=== PATIENT | female | born 1945 | race Caucasian/White ===

== ENCOUNTER 2019-06-02 07:17 | Inpatient (IN) | payer MEDICARE ==
[~2019-06-02] VITALS: Ht 167.6 cm; Wt 103.7 kg
[2019-06-02 08:19] LABS: Basophils # (auto) 0.1 uL; Basophils % (auto) 2.3 % (0.0-2.0); Eosinophils # (auto) 0.1 uL; Eosinophils % (auto) 1.5 % (0.0-7.0); Hematocrit 40.5 % (36.0-46.0); Hemoglobin 13.9 g/dL (12.2-16.2); Lymphocytes # (auto) 0.8 uL; Mean Corpuscular Hemoglobin 31.3 pg (28.0-32.0); Mean Corpuscular Hgb Conc. 34.4 g/dL (32.0-36.0); Mean Corpuscular Volume 90.9 fL (80.0-100.0); Monocytes # (auto) 0.4 uL; Monocytes % (auto) 7.4 % (0.0-12.0); Neutrophils # (auto) 3.6 uL; Neutrophils % (auto) 71.8 % (37.0-80.0); Platelet Count (auto) 155 10^3/uL (140-450); Red Blood Cells 4.45 10^6/uL (4.0-5.20); Red Cell Distribution Width 13.4 % (11.8-14.3)
[2019-06-02] MEDS ORDERED: IOHEXOL 350 MG/ML 100ML IJ ONE (08:23)
[2019-06-02] MEDS ORDERED: SODIUM CHLORIDE 0.9% 1,000 ML IV ONE (08:30)
[2019-06-02 08:32] LABS: Albumin 3.8 g/dL (3.4-5.0); BUN/Creatinine Ratio 16.5; Calcium 8.4 mg/dL (8.5-10.1)
[2019-06-02 08:35] LABS: Bilirubin, Total 0.6 mg/dL (0.2-1.0); Total Protein 6.9 g/dL (6.4-8.2)
[2019-06-02] MEDS ORDERED: methylPREDNISolone SOD SUCC 125 MG/2 ML VL ONE (09:37)
[2019-06-02] MEDS ORDERED: methylPREDNISolone SOD SUCC 125 MG/2 ML VL IV ONE (09:45)
[2019-06-02] MEDS: ENALAPRIL MALEATE 2.5 MG TAB PO SCH (10:00)
[2019-06-02] MEDS ORDERED: MORPHINE SULFATE 4 MG/ML SYR/VIAL IV PRN (10:00)
[2019-06-02] MEDS ORDERED: LACTULOSE 20Gm/30ML SOLN PO PRN (10:00)
[2019-06-02] MEDS ORDERED: HYDROcodone-ACET 5/325MG TAB PO PRN (10:00)
[2019-06-02] MEDS ORDERED: POTASSIUM CHL 20 Meq TABLET PO SCH (10:00)
[2019-06-02] MEDS: LEVOFLOXACIN 500MG 100 ML IV SCH (10:00)
[2019-06-02] MEDS: methylPREDNISolone SOD SUCC 40 MG/ML VL IV SCH ×2 (10:00→21:32)
[2019-06-02] MEDS ORDERED: PROMETHAZINE HCL 25 MG/ML 1ML IV PRN (10:00)
[2019-06-02] MEDS ORDERED: LEVOFLOXACIN 500MG 100 ML IV ONE (10:00)
[2019-06-02] MEDS: FUROSEMIDE 40 MG/4 ML VIAL IV SCH (10:00)
[2019-06-02] MEDS ORDERED: ALBUTEROL SULF 2.5 MG/0.5ML(0.5%) NEB SOLN NEB PRN (10:00)
[2019-06-02] MEDS ORDERED: MORPHINE SULF INJ 2 MG/ML SYRINGE 1ML IV PRN (10:00)
[2019-06-02] MEDS ORDERED: NITROGLYCERIN 0.4 MG SL TAB SL PRN (10:00)
[2019-06-02] MEDS ORDERED: FUROSEMIDE 40 MG/4 ML VIAL IV ONE (10:15)
[2019-06-02] MEDS ORDERED: LACTULOSE 20Gm/30ML SOLN PO ONE (10:15)
[2019-06-02] MEDS ORDERED: CARVEDILOL 3.125 MG TAB PO ONE (10:15)
[2019-06-02] MEDS ORDERED: PANTOPRAZOLE 40 MG TAB PO ONE (10:15)
[2019-06-02] MEDS ORDERED: ENALAPRIL MALEATE 2.5 MG TAB PO ONE (10:15)
[2019-06-02] MEDS: CARVEDILOL 3.125 MG TAB PO SCH ×2 (10:53→22:00)
[2019-06-02] MEDS: PANTOPRAZOLE 40 MG TAB PO SCH (10:53)
[2019-06-02 11:43] LABS: Urine Bacteria NONE SEEN /hpf (None Seen); Urine Blood Negative /uL (Negative); Urine Mucus FEW (None Seen); Urine Specific Gravity 1.049 (1.001-1.035); Urine WBC <1 /hpf (0 - 5)
[2019-06-02] MEDS: ALBUTEROL SULF 2.5 MG/0.5ML(0.5%) NEB SOLN NEB SCH ×2 (13:04→18:07)
[2019-06-02] MEDS: IPRATROPIUM BROM 0.5 MG/2.5ML INH SOL NEB SCH ×2 (13:04→18:07)
[2019-06-02] MEDS: SODIUM CHLOR 0.9% PF (SALINE LOCK) 10ML VIAL/SYR IV SCH ×2 (14:00→21:32)
[2019-06-02] MEDS: CLINDAMYCIN 600MG IV 50 ML IV SCH ×2 (14:00→21:32)
[2019-06-02] MEDS ORDERED: TEMAZEPAM 15 MG CAP PO ONE (21:30)
[2019-06-02] MEDS: ATORVASTATIN 20 MG TAB PO SCH (21:32)
[2019-06-02] MEDS ORDERED: ALBUMIN 5% 250 ML IV ONE (23:00)
[2019-06-03] VITALS (32 sets, daily range): BP systolic 25–144; BP diastolic 11–74
[2019-06-03] MEDS: ALBUTEROL SULF 2.5 MG/0.5ML(0.5%) NEB SOLN NEB SCH ×4 (00:23→18:32)
[2019-06-03] MEDS: IPRATROPIUM BROM 0.5 MG/2.5ML INH SOL NEB SCH ×4 (00:23→18:32)
--- NOTE | 2019-06-03 00:30 | NUR ---
Telemetry admit from ER KEVANMALVIN admitted to Telemetry unit. Patient oriented to DWAIN DALTON RN primary RN, unit telemetry, room 292, bed B,and unit policies regarding patient care and visiting hours. Patient now on continuous telemetry monitoring, tele box #69 and telemetry reading on arrival to unit is normal sinus rhythm with heart in the 80s. Patient placed on bedside oxygen, weighed by bedscale and encouraged to call if they need something. All questions and concerns addressed, patient verbalized understanding.
--- NOTE | 2019-06-03 00:30 | NUR ---
Patient arrived to [facility] 292-B, sitting on edge of bed, 02 at [address], awake, alert and oriented x 4, pleasant affect, no c/o pain at this time, skin is intact, no open areas, bilateral lower extremities are red and edematous. Bed in low position, side rails up x 2, call light and bed side table within reach, oriented patient to room and equipment, encouraged patient to call nursing staff for help before ambulating to the bathroom for safety reasons. Will continue to monitor with hourly rounding for the remainder of shift.
--- NOTE | 2019-06-03 04:30 | NUR ---
Rounds Patient sleeping. No S/S of distress/SOB or pain. Will continue to monitor changes q1hr and PRN.
[2019-06-03] MEDS: CLINDAMYCIN 600MG IV 50 ML IV SCH ×3 (06:12→22:14)
[2019-06-03] MEDS: SODIUM CHLOR 0.9% PF (SALINE LOCK) 10ML VIAL/SYR IV SCH ×3 (06:14→22:14)
--- NOTE | 2019-06-03 07:30 | NUR ---
SHIFT CLOSING NOTE. ENDORSED CARE OF PATIENT TO DAY SHIFT, WILLARD KASPER.
[2019-06-03] MEDS ORDERED: IOHEXOL 350 MG/ML 100ML IJ ONE ×2 (07:54→10:54)
[2019-06-03] MEDS ORDERED: LIDOCAINE 2%HCL (LOCAL ANESTH.) INJ 20ML MDV ONE (07:54)
--- NOTE | 2019-06-03 07:55 | NUR ---
Opening Shift Note Assumed care of patient, awake and alert. No S/S of distress/SOB or pain. Instructed on POC and to call for assist PRN, will continue to monitor for changes Q1hr and PRN. Bed locked in lowest position with two side rails up and call light in reach. Per Dr Rodriguez note patient to have LHC with Dr Purdy today. Breakfast tray held.
--- NOTE | 2019-06-03 09:50 | NUR ---
DR LOPEZ [place] PATIENT TO BE TAKEN DOWN TO INTERACTIVE WEB DEVELOPER.
[2019-06-03] MEDS: PANTOPRAZOLE 40 MG TAB PO SCH (10:00)
[2019-06-03] MEDS: POTASSIUM CHL 20 Meq TABLET PO SCH (10:00)
[2019-06-03] MEDS: ENOXAPARIN SOD 40 MG/0.4 ML SYRINGE SC SCH (10:00)
[2019-06-03] MEDS: methylPREDNISolone SOD SUCC 40 MG/ML VL IV SCH ×2 (10:00→22:14)
[2019-06-03] MEDS: FUROSEMIDE 40 MG/4 ML VIAL IV SCH (10:00)
[2019-06-03] MEDS: CARVEDILOL 3.125 MG TAB PO SCH (10:00)
[2019-06-03] MEDS: ENALAPRIL MALEATE 2.5 MG TAB PO SCH (10:00)
[2019-06-03] MEDS ORDERED: ACETAMINOPHEN 325 MG TAB PO ONE (10:30)
--- NOTE | 2019-06-03 10:30 | NUR ---
PATIENT TAKEN DOWN TO RASCHEL KNITTING MACHINE OPERATOR, NO S/S OF DISTRESS NOTED.
[2019-06-03] MEDS ORDERED: fentaNYL CITRATE 100 MCG/2 ML VL ONE (10:53)
[2019-06-03] MEDS ORDERED: MIDAZOLAM HCL 1MG/1ML-2 ML VIAL ONE (10:53)
[2019-06-03] MEDS ORDERED: SODIUM CHL 0.9% 0 ML ONE (10:53)
[2019-06-03] MEDS ORDERED: ANGIOMAX 250 MG VIAL IV ONE (10:53)
[2019-06-03] MEDS ORDERED: HEPARIN SODIUM (PORCINE) 5000 UNITS/ML 1ML VIAL ONE ×2 (11:23→11:57)
--- NOTE | 2019-06-03 11:32 | NUR ---
Respiratory note: SCHEDULED MED NEB TX NOT GIVEN PT AT A PROCEDURE.
[2019-06-03] MEDS ORDERED: FUROSEMIDE 20 MG/2 ML VIAL ONE (11:42)
[2019-06-03] MEDS ORDERED: MORPHINE SULF INJ 2 MG/ML SYRINGE 1ML ONE ×4 (11:51→12:17)
[2019-06-03] MEDS ORDERED: hydrALAZINE HCL 20 MG/ML VL ONE ×2 (11:57→12:19)
[2019-06-03] MEDS ORDERED: HEPARIN DRIP/D5W 100UNITS/ML 250 ML IV SCH (12:47)
--- NOTE | 2019-06-03 12:54 | NUR ---
PATIENT HAS ADVANCED DIRECTIVES IN CHART DR YEE ROUNDED SAW ADVANCED DIRECTIVES AND SAID PATIENT TO REMAIN FULL CODE.
--- NOTE | 2019-06-03 12:55 | NUR ---
ORDER PLACED FOR FULL CODE PER DR YEE.
[2019-06-03] MEDS ORDERED: hydrALAZINE HCL 20 MG/ML VL IV PRN (13:00)
--- NOTE | 2019-06-03 15:16 | NUR ---
REPORT RECEIVED FROM BONE GRINDER, GETTING ROOM READY
--- NOTE | 2019-06-03 16:00 | NUR ---
ARRIVED TO ICU FROM FARM ASSISTANT ON IABP/PA LINE TO RIGHT GROIN. IABP 1:1 FREQUENCY WITH CDI DSG NO HEMATOMA AND PULSES OBTAINED TO RIGHT DORSALIS PEDIS/POSTERIOR TIBIALIS WITH DOPPLER. BOTH LEGS/FEET COOL TO TOUCH AND PALE. LEFT RADIAL PULSE PALPABLE. HEPARIN GTT AT 1000 UNITS/HR TO RIGHT 20G HAND WITH PTT TO BE DRAWN AT 2000. WEN TO GRAVITY DRAINING CLEAR YELLOW URINE. PA LINE/CVP/ECG/SPO2 HOOKED TO PRESSURE BAGS AND CONNECTED TO BEDSIDE MONITOR. PATIENT ARRIVED A/OX4 WITH PUPILS 2MM BRISK. SPO2 99% ON NONREBREATHER MASK. CHRISTIAN SEGURA AT BEDSIDE AND PLACED PATIENT ON BIPAP PREVIOUSLY ON IN FARM ASSISTANT ORDERED PER DR LOPEZ. SPOKE WITH DR LOPEZ AND OBTAINED ORDER FOR PULMONARY CONSULT. DR PEARCE IN UNIT AND AWARE OF CONSULT. NEW PIV 22 G TO RIGHT FA PLACED AFTER SECOND ATTEMPT.
[2019-06-03] MEDS: LORazepam 2MG/ML-1ML VIAL IV PRN (16:24)
--- NOTE | 2019-06-03 16:45 | NUR ---
AT 1624 ATIVAN GIVEN 0.5MG IV (LOWER THAN ORDERED DOSE DUE TO FIRST TIME PATIENT GETTING ATIVAN PER PATIENT REPORT) DUE TO C/O ANXIETY AND "UNEASINESS". PATIENT STATED IT HELPED HER "BREATH BETTER". AUGMENTED PRESSURES DROPPED AFTER GIVING ATIVAN, CONT TO MONITOR.
--- NOTE | 2019-06-03 16:58 | NUR ---
CARDIOTHORACIC SURGERY CONSULT PLACED WITH DR STRICKLAND COST ENGINEER
--- NOTE | 2019-06-03 17:30 | NUR ---
DR PEARCE AT BEDSIDE, EXAMINED AND SPOKE WITH PATIENT AND WHO IS AT BEDSIDE. DR GAVE NEW ORDER FOR ABG IN 2 HRS AND ABG/CXR IN AM.
[2019-06-03] MEDS: LEVOFLOXACIN 500MG 100 ML IV SCH (17:40)
--- NOTE | 2019-06-03 19:03 | NUR ---
PAGED DR LOPEZ REGARDING PA LINE PER CXR RESULTS
--- NOTE | 2019-06-03 19:25 | NUR ---
REPORT GIVEN TO LORY LAMAR. DR LOPEZ AWARE OF CXR RESULTS REGARDING PA LINE PLACEMENT AND OK TO GO BY PAD FOR LASIX IV ORDER INSTEAD OF WEDGE PRESSURES.
[2019-06-03 20:04] LABS: Basophils # (auto) 0 uL; Basophils % (auto) 0.2 % (0.0-2.0); Eosinophils # (auto) 0 uL; Hematocrit 40.9 % (36.0-46.0); Hemoglobin 14.1 g/dL (12.2-16.2); Lymphocytes # (auto) 0.7 uL; Mean Corpuscular Hemoglobin 31.9 pg (28.0-32.0); Mean Corpuscular Hgb Conc. 34.4 g/dL (32.0-36.0); Mean Corpuscular Volume 92.8 fL (80.0-100.0); Monocytes # (auto) 0.9 uL; Monocytes % (auto) 8.5 % (0.0-12.0); Neutrophils # (auto) 8.7 uL; Neutrophils % (auto) 84.3 % (37.0-80.0); Nucleated Red Blood Cells % 0.1 %; Platelet Count (auto) 157 10^3/uL (140-450); Red Blood Cells 4.41 10^6/uL (4.0-5.20); Red Cell Distribution Width 13.6 % (11.8-14.3); White Blood Cell 10.3 10^3/uL (4.4-10.8)
[2019-06-03 20:15] LABS: Alanine Aminotransferase 21 U/L (13-56); Albumin 3.8 g/dL (3.4-5.0); Anion Gap 12 (5-15); Aspartate Aminotransferase 49 U/L (15-37); BUN/Creatinine Ratio 27.8; Blood Urea Nitrogen 30 mg/dL (7-18); Calcium 8.2 mg/dL (8.5-10.1); Carbon Dioxide 21 mmol/L (21-32); Chloride 100 mmol/L (98-107); GFR African American 64 mL/min; GFR Non-African American 53 mL/min; Potassium 4.4 mmol/L (3.5-5.1); Sodium 133 mmol/L (136-145)
[2019-06-03 20:16] LABS: Partial Thromboplastin Time 35.8 sec (23.64-32.05)
[2019-06-03 20:18] LABS: Alkaline Phosphatase 71 U/L (45-117); Bilirubin, Total 0.6 mg/dL (0.2-1.0); Total Protein 7.1 g/dL (6.4-8.2)
[2019-06-03 20:20] LABS: Glucose 407 mg/dL (74-106)
[2019-06-03] MEDS: ATORVASTATIN 20 MG TAB PO SCH (22:14)
[2019-06-03] MEDS: HEPARIN DRIP/D5W 100UNITS/ML 250 ML IV SCH (22:20)
[2019-06-03] MEDS ORDERED: DEXTROSE (50%) 50ML SYRG IV PRN (22:30)
[2019-06-04] VITALS (74 sets, daily range): BP systolic 23–109; BP diastolic 7–68
[2019-06-04] MEDS: ALBUTEROL SULF 2.5 MG/0.5ML(0.5%) NEB SOLN NEB SCH ×4 (00:05→19:35)
[2019-06-04] MEDS: IPRATROPIUM BROM 0.5 MG/2.5ML INH SOL NEB SCH ×4 (00:05→19:35)
[2019-06-04] MEDS: ACCU-CHEK COMFORT CURVE STRIP VI SCH ×5 (00:12→23:07)
[2019-06-04] MEDS: InsuLIN REG 1unit/0.01ml Soln (100units/ml) SC SCH ×5 (00:12→23:07)
[2019-06-04] MEDS: FUROSEMIDE 40 MG/4 ML VIAL IV PRN ×3 (00:13→23:21)
[2019-06-04 04:05] LABS: INR 1.01 (0.9-1.15); Partial Thromboplastin Time 44.7 sec (23.64-32.05)
[2019-06-04] MEDS: CLINDAMYCIN 600MG IV 50 ML IV SCH ×3 (05:59→22:06)
[2019-06-04] MEDS: SODIUM CHLOR 0.9% PF (SALINE LOCK) 10ML VIAL/SYR IV SCH ×3 (06:00→22:05)
[2019-06-04] MEDS: ACETAMINOPHEN 500 MG TAB PO PRN (07:17)
--- NOTE | 2019-06-04 07:50 | NUR ---
ASSESSMENT COMPLETED, SEE INTERVENTIONS. C/O HEADACHE PAIN 3/10 TYLENOL GIVEN ORDERED. IABP 1:1 AUGMENTING 90-120, RIGHT GROIN INSERTION SITE MINIMAL AMOUNT OF BLOODY DRAINAGE ASSESSED, PULSES BILATERAL DORSALIS PEDIS/POSTERIOR TIBIALIS REGULAR WITH DOPPLER, BILATERAL RADIAL PULSES WEAK BUT PALPABLE. A/O X4 WITH BRISK PUPILS 2MM. RIGHT LEG WARM TO TOUCH WITH ERYTHEMA WITH PATIENT DENYING PAIN IN THAT LEG. WEN PRESENT WITH URINE OUTPUT WNL CLEAR YELLOW DRAINING TO GRAVITY. BIPAP ON 20/03 40% TOLERATING WELL SPO2 98-99%. PA LINE TO RIGHT GROIN AROUND 95 CM AT HUB CXR VIEWED AND REPORT READ RECOMMEND RETRACTION 6-7 CM, DR LOPEZ ALREADY AWARE ON 06/03 EVENING (SEE NOTE) AND STATED DO NOT RETRACT, WILL VERIFY THIS AM. SEE VS/HEMODYNAMICS FOR PAP/CVP. SR 80'S-90'S NO ECTOPY. DENIES ANY CHEST PAIN.
--- NOTE | 2019-06-04 08:02 | NUR ---
DR PEARCE AT BEDSIDE, DR WEST RT OBTAINING ABG AT THIS TIME SPOKE WITH AND EXAMINED PATIENT
--- NOTE | 2019-06-04 08:16 | NUR ---
AND DAUGHTER AT BEDSIDE
--- NOTE | 2019-06-04 08:30 | NUR ---
DR PEARCE AWARE OF ABG RESULTS, OK TO TAKE OFF BIPAP AND PLACE ON O2 VIA NC TO KEEP SPO2 92 OR ABOVE AND LONG PATIENT ABLE TO TOLERATE WITHOUT INCREASED ANXIETY/SOB. OK TO USE BIPAP PRN. RT BERE PLACED ON OXYMIZER. BREAKFAST TRAY AT BEDSIDE AND RN MAINTAIN STRICT ASPIRATION PRECAUTIONS SINCE UNABLE TO SIT UP DUE TO IABP. HOB 30 DEGREES AND SWALLOWS WITHOUT ISSUE.
[2019-06-04] MEDS: methylPREDNISolone SOD SUCC 40 MG/ML VL IV SCH (09:47)
[2019-06-04] MEDS: ENOXAPARIN SOD 40 MG/0.4 ML SYRINGE SC SCH (09:47)
[2019-06-04] MEDS: LORazepam 2MG/ML-1ML VIAL IV PRN ×3 (09:47→20:51)
[2019-06-04] MEDS: LEVOFLOXACIN 500MG 100 ML IV SCH (09:47)
[2019-06-04] MEDS ORDERED: PANTOPRAZOLE 40 MG/10 ML VIAL INJ IV SCH (10:00)
[2019-06-04] MEDS: FUROSEMIDE 40 MG/4 ML VIAL IV SCH (10:00)
--- NOTE | 2019-06-04 10:15 | NUR ---
DR LOPEZ IN AT BEDSIDE, AWARE OF CXR RESULTS WITH RECOMMENDATION TO RETRACT PA LINE AND DR STATED NO NEED TO RETRACT. DR AWARE RN HELD 1000 AM ORDERED DOSE LASIX DUE TO PAD LESS THAN 25. OK TO CONT TO GO BY PAD FOR LASIX PRN ORDER INSTEAD OF WEDGE PRESSURE. DR EXAMINED PATIENT. DR AWARE OF HEMODYNAMICS. DR AWARE OF IABP DRESSING WITH MINIMAL AMOUNT BLOODY DRAINAGE AND OK TO CHANGE DRESSING TODAY.
--- NOTE | 2019-06-04 10:30 | NUR ---
DR STRICKLAND AT BEDSIDE THIS AM, DR EXAMINED PATIENT AND SPOKE WITH HER REGARDING CABG/AORTIC VALVE REPLACEMENT PROCEDURES AND ALL RISKS INVOLVED. FAMILY INCLUDING DAUGHTER AND AT BEDSIDE. PATIENT AGREED TO SURGERY AND SIGNED CONSENTS. SURGERY WILL BE WEDNESDAY 06/06. RN PLACED PREOP ORDERS FOR OPEN HEART SURGERY PER DR REQUEST. HEPARIN DRIP TO BE DISCONTINUED AT 0400 ON WEDNESDAY 06/06 PRIOR TO SURGERY. ULTRASOUND CALLED FOR PENDING CAROTID DUPLEX STUDY AND VEIN MAPPING, STATED THEY WILL BE HERE TODAY TO DO PROCEDURES. RT AWARE OF ABG ON ROOM AIR. WILL OBTAIN ALL BLOOD ORDERED WITH PTT SCHEDULED ALREADY AT 1100. RN EDUCATED PATIENT ON OPEN HEART SURGERY PRE-OP, INTRA-OP AND POST-OP TOPICS. WILL SHOW PRE-OP VIDEO TODAY.
[2019-06-04] MEDS: HEPARIN DRIP/D5W 100UNITS/ML 250 ML IV SCH ×2 (10:37→13:44)
[2019-06-04 11:58] LABS: Basophils # (auto) 0 uL; Basophils % (auto) 0.1 % (0.0-2.0); Eosinophils # (auto) 0 uL; Hematocrit 35.8 % (36.0-46.0); Lymphocytes # (auto) 0.5 uL; Lymphocytes % (auto) 6.7 % (10.0-50.0); Mean Corpuscular Hemoglobin 31.2 pg (28.0-32.0); Mean Corpuscular Hgb Conc. 33.5 g/dL (32.0-36.0); Mean Corpuscular Volume 93.4 fL (80.0-100.0); Monocytes # (auto) 0.4 uL; Monocytes % (auto) 5.6 % (0.0-12.0); Neutrophils # (auto) 5.9 uL; Neutrophils % (auto) 87.6 % (37.0-80.0); Platelet Count (auto) 122 10^3/uL (140-450); Red Blood Cells 3.84 10^6/uL (4.0-5.20); Red Cell Distribution Width 13.4 % (11.8-14.3); White Blood Cell 6.7 10^3/uL (4.4-10.8)
--- NOTE | 2019-06-04 12:11 | NUR ---
WATCHED PREOP OPEN HEART SURGERY VIDEO, ALL QUESTIONS ADDRESSED.
[2019-06-04 12:15] LABS: Albumin 3.2 g/dL (3.4-5.0); Calcium 7.6 mg/dL (8.5-10.1); Magnesium 2.1 mg/dL (1.6-2.6); Potassium 3.8 mmol/L (3.5-5.1)
[2019-06-04 12:19] LABS: BUN/Creatinine Ratio 35.7; Bilirubin, Total 0.5 mg/dL (0.2-1.0); Total Protein 6.3 g/dL (6.4-8.2)
[2019-06-04] MEDS: POTASSIUM CHL 20 Meq TABLET PO SCH (12:25)
[2019-06-04] MEDS: PANTOPRAZOLE 40 MG TAB PO SCH (12:25)
[2019-06-04 13:30] LABS: INR 1.05 (0.9-1.15); Partial Thromboplastin Time 59.4 sec (23.64-32.05)
--- NOTE | 2019-06-04 13:55 | NUR ---
WOUND CARE NOTE: PATIENT IS CURRENTLY INTUBATED, SEDATED. SHE HAS LOW PATTI SCORE OF 10. SKIN WOUND CARE PLAN IMPLEMENTED FOR LOW PATTI SCORE. SHE IS WOUND FREE AT THIS TIME. [facility] WITH DIAGNOSIS OF PNA, PERICARDITIS, HEART FAILURE. SHE IS SCHEDULED FOR CARDIAC SURGERY ON THURSDAY. RECOMMEND: FREQUENT TURN SCHEDULE Q 2 HOURS, PRN CONDITION PERMITS, WITH PRESSURE REDISTRIBUTION USING PILLOWS/WEDGES, BID/PRN APPLICATION WITH MOISTURE BARRIER CREAM, OPTIFOAM GENTLE SACRAL DRESSING PREVENTATIVE, DIETARY CONSULT FOR LOW PATTI, CONTINUED MONITORING BY WOUND CARE TEAM.
--- NOTE | 2019-06-04 14:30 | NUR ---
FILLER PICKER AT BEDSIDE PERFORMING CAROTID DOPPLER STUDY AND VEIN MAPPING
[2019-06-04] MEDS ORDERED: methylPREDNISolone SOD SUCC 40 MG/ML VL IV SCH (15:15)
--- NOTE | 2019-06-04 15:15 | NUR ---
SPOKE WITH DR PEARCE, AWARE OF RA ABG ORDERED EARLIER BY DR STRICKLAND FOR OPEN HEART SURGERY PRE-OP PROTOCOL. DR CHANGED ORDER FOR SOLUMEDROL 40 MG TO DAILY AND STATED TO ONLY GIVE TOMORROWSS DOSE THEN STOP THE MEDICATION DUE TO PROCEDURE ON THURSDAY.
--- NOTE | 2019-06-04 15:26 | NUR ---
DTR AT BEDSIDE
--- NOTE | 2019-06-04 15:54 | NUR ---
LASIX GIVEN ORDERED PRN FOR PAD ABOVE 25
--- NOTE | 2019-06-04 16:57 | NUR ---
PAD 18-20 AFTER GIVING LASIX IV, 200 ML CLEAR YELLOW URINE OUTPUT SINCE GIVEN
--- NOTE | 2019-06-04 17:00 | NUR ---
OVER 350 ML CLEAR YELLOW URINE OUTPUT THIS HOUR AFTER LASIX GIVEN NOTED PREVIOUSLY Addendum: 06/04/19 at 1818 by Heber Hoffmann RN TIME 1800 NOT 1700
[2019-06-04] MEDS: MORPHINE SULFATE 4 MG/ML SYR/VIAL IV PRN ×2 (17:34→23:22)
--- NOTE | 2019-06-04 18:39 | NUR ---
NO CHANGE IN HEPARIN DRIP PER PTT/HEPARIN DRIP PROTOCOL. CONT AT 1400 UNITS/HR
--- NOTE | 2019-06-04 19:29 | NUR ---
REPORT GIVEN TO ARTIE LAMAR
--- NOTE | 2019-06-04 19:35 | NUR ---
ASSESSMENT PATIENT IS AAO X4, ANXIOUS. VITAL SIGNS ARE STABLE. ON 4L OXYMIZER.HEPARIN DRIP 1400 UNITS /HR.RT.FEMORAL IABP AND PA CATHETER IN PLACE. PER STEPHANIE DAY SHIFT RN, DOESN'T WANT RN TO DO CARDIAC OUTPUT AND OKAY TO GO BY PA DIASTOLIC FOR LASIX IV ORDER INSTEAD OF WEDGE PRESSURES.
--- NOTE | 2019-06-04 20:30 | NUR ---
Patient bathe/linen change Patient given complete chlorhexidine bath. Skin integrity assessed for any changes. Linens changed. Patient repositioned for comfort.
[2019-06-04] MEDS: ATORVASTATIN 20 MG TAB PO SCH (22:05)
[2019-06-05] VITALS (76 sets, daily range): BP systolic 23–128; BP diastolic -2–77
[2019-06-05] MEDS: ALBUTEROL SULF 2.5 MG/0.5ML(0.5%) NEB SOLN NEB SCH ×4 (00:32→18:34)
[2019-06-05] MEDS: IPRATROPIUM BROM 0.5 MG/2.5ML INH SOL NEB SCH ×4 (00:32→18:34)
--- NOTE | 2019-06-05 02:00 | NUR ---
PATIENT REFUSED REPOSITIONING TEACHING IS GIVEN ON THE BENEFITS OF REPOSITIONING.
--- NOTE | 2019-06-05 04:00 | NUR ---
WHEEZING/SOB LUNGS SOUNDS ARE WHEEZES. PATIENT HAS SOB BUT SHE REFUSES TO WEAR BIPAP AND SHE SAYS"I AM OKAY". PATIENT IS ON 4L OXYMIZER SAT 95%. TEMP [address] WITH PAC. TEACHING IS GIVEN ON THE BENEFITS OF BIPAP NOW BUT PT REFUSED. WILL MONITOR CLOSELY.
--- NOTE | 2019-06-05 04:55 | NUR ---
INCREASING SOB PATIENT AGREED TO KEEP BIPAP. PAGED RT. RT PLACED PATIENT ON BIPAP 20/03 FIO2 40%
--- NOTE | 2019-06-05 05:00 | NUR ---
PATIENT FEELS BETTER PATIENT SAID THAT SHE CAN BREATH BETTER.TEMP 101.8 . TYLENOL 500 MG PO GIVEN. OTHER VITAL SIGNS ARE GETTING BETTER.
[2019-06-05 05:01] LABS: Basophils # (auto) 0 uL; Basophils % (auto) 0.6 % (0.0-2.0); Eosinophils # (auto) 0 uL; Hematocrit 35.6 % (36.0-46.0); Hemoglobin 12.7 g/dL (12.2-16.2); Lymphocytes # (auto) 0.6 uL; Lymphocytes % (auto) 9.4 % (10.0-50.0); Mean Corpuscular Hemoglobin 32.2 pg (28.0-32.0); Mean Corpuscular Hgb Conc. 35.8 g/dL (32.0-36.0); Mean Corpuscular Volume 89.8 fL (80.0-100.0); Monocytes # (auto) 0.4 uL; Monocytes % (auto) 6.9 % (0.0-12.0); Neutrophils # (auto) 5.4 uL; Neutrophils % (auto) 83.1 % (37.0-80.0); Nucleated Red Blood Cells % 0.1 %; Platelet Count (auto) 117 10^3/uL (140-450); Red Blood Cells 3.96 10^6/uL (4.0-5.20); Red Cell Distribution Width 13.3 % (11.8-14.3); White Blood Cell 6.5 10^3/uL (4.4-10.8)
[2019-06-05] MEDS: ACETAMINOPHEN 500 MG TAB PO PRN (05:07)
[2019-06-05 05:15] LABS: INR 1.06 (0.9-1.15); Partial Thromboplastin Time 55.8 sec (23.64-32.05)
[2019-06-05] MEDS: HEPARIN DRIP/D5W 100UNITS/ML 250 ML IV SCH ×2 (05:19→23:38)
[2019-06-05 05:28] LABS: Potassium 3.8 mmol/L (3.5-5.1)
[2019-06-05 05:42] LABS: Albumin 3.4 g/dL (3.4-5.0); BUN/Creatinine Ratio 32.9; Bilirubin, Total 0.6 mg/dL (0.2-1.0); Calcium 7.8 mg/dL (8.5-10.1)
[2019-06-05] MEDS: CLINDAMYCIN 600MG IV 50 ML IV SCH (05:49)
[2019-06-05] MEDS: SODIUM CHLOR 0.9% PF (SALINE LOCK) 10ML VIAL/SYR IV SCH ×3 (05:50→22:14)
[2019-06-05] MEDS: ACCU-CHEK COMFORT CURVE STRIP VI SCH ×4 (05:58→23:59)
[2019-06-05] MEDS: InsuLIN REG 1unit/0.01ml Soln (100units/ml) SC SCH ×3 (05:58→18:10)
--- NOTE | 2019-06-05 06:30 | NUR ---
PAGED TO INFORM HIGH TROPONIN LEVEL.
[2019-06-05] MEDS ORDERED: cefTRIAXone 1GM/50ML D5W 50 ML IV ONE (07:15)
--- NOTE | 2019-06-05 07:15 | NUR ---
RETURNED CALL NOTIFIED HIM ABOUT THE FEVER, TACHYCARDIA, AND HIGH TROPONIN LEVEL. ORDER RECEIVED FOR ROCEPHIN IGM IV X1.
--- NOTE | 2019-06-05 07:30 | NUR ---
REPORT RECEIVED ASSUMING CARE.
--- NOTE | 2019-06-05 07:49 | NUR ---
PT TAKEN OFF BIPAP AND PLACED ON 3LNC, SPO2 95%. BIPAP AT BEDSIDE.
[2019-06-05] MEDS: LORazepam 2MG/ML-1ML VIAL IV PRN (09:19)
--- NOTE | 2019-06-05 09:31 | NUR ---
DR AREVALO AT BEDSIDE EXAMINED AND SPOKE WITH PATIENT. AND DTR AT BEDSIDE WATCHING PREPARING FOR HEART SURGERY VIDEO. DR WEST GAVE NEW ORDER TO CHANGE PRN BREATHING TREATMENT TO Q2H PRN FROM Q3HPRN. DR WEST RN TOOK 12 LEAD EKG WHEN PATIENT WAS IN/OUT OF HIGH HR 110'S-130'S AND SIGNED [address] JENNA LOPEZ GAVE ORDER FOR ROCEPHIN 1 GM ONCE IV AND DR AREVALO ORDERED 1 GM DAILY. OK TO LEAVE [facility] STRICKLAND INPUT -RN WILL ASK DR STRICKLAND UPON SPEAKING WITH HIM TODAY.
[2019-06-05] MEDS: PANTOPRAZOLE 40 MG TAB PO SCH (09:42)
[2019-06-05] MEDS: POTASSIUM CHL 20 Meq TABLET PO SCH (09:43)
[2019-06-05] MEDS ORDERED: methylPREDNISolone SOD SUCC 40 MG/ML VL IV SCH (10:00)
[2019-06-05] MEDS ORDERED: PANTOPRAZOLE 40 MG TAB PO SCH (10:00)
[2019-06-05] MEDS: FUROSEMIDE 40 MG/4 ML VIAL IV SCH (10:00)
[2019-06-05] MEDS ORDERED: LEVOFLOXACIN 750MG 150 ML IV SCH (10:00)
--- NOTE | 2019-06-05 10:01 | NUR ---
SPOKE WITH DR MARCO A WATKINS GAVE NEW ORDER FOR ANOTHER PLATELET FUNCTION TEST
--- NOTE | 2019-06-05 11:47 | NUR ---
NUTRITION CONSULT/ASSESSMENT NOTES Please refer to link notes of nutrition screen form filed under the intervention section of the plan of care for further details. Est. Needs: 1750 kcal to 1850 kcal (18-20 kcal/kgBW), 78 gms to 101 gms pro (1.0-1.3 gms/kgIBW: 78 kg). Will continue to monitor pertinent labs and reassess nutrient need prn Thank you for this consult. Addendum: 06/05/19 at [address] Isabel Vail RD Amended: Links added.
[2019-06-05] MEDS: ALBUTEROL SULF 2.5 MG/0.5ML(0.5%) NEB SOLN NEB PRN ×2 (12:18→20:40)
--- NOTE | 2019-06-05 13:39 | NUR ---
O.R. CALLED STATING CUT TIME HAS BEEN CHANGED TO 1030 FOR TOMORROW MORNING CABG/AVR PROCEDURE.
--- NOTE | 2019-06-05 14:54 | NUR ---
SPOKE WITH DR MARCO A DR AWARE LATEST PLATELET FUNCTION TEST. OK TO DC HEPARIN DRIP AT 0400 TOMORROW MORNING. AWARE OF HEMODYNAMICS. AWARE OF ROCEPHIN ORDERED TODAY WITH LEVAQUIN /CLEOCIN ALREADY ORDERED OK TO DC CLEOCIN.
[2019-06-05] MEDS: MORPHINE SULFATE 4 MG/ML SYR/VIAL IV PRN ×2 (17:55→20:32)
--- NOTE | 2019-06-05 18:23 | NUR ---
SKIN REASSESSMENT PERFORMED AND AUNG SIZED NONBLANCHABLE PURPLE AREA NOTED TO RIGHT HEEL. BILATERAL HEELS ELEVATED ON PILLOW TO OFFLOAD PRESSURE.
--- NOTE | 2019-06-05 18:50 | NUR ---
PER DR PEARCE, DR BARBER COVERING FOR PULMONOLOGY CONSULT STARTING TOMORROW MORNING.
--- NOTE | 2019-06-05 19:30 | NUR ---
CARE ASSUMED. REPORT FROM STEPHANIE LAMAR. ASSESSMENT: ALERT AND ORIENTED, ON BEDREST DUE TO IABP. MOVES ALL EXTREMITIES, DRINKS FLUIDS WITH NO DIFFICULTIES. ATE 10% OF DINNER TRAY, POOR APPETITE. CARDIAC - HR 106, IRREGULAR, FREQUENT PVC'S. HEART MURMUR (+). AUGMENTED PRESSURES 90-100'S, MEAN PRESSURES 70-80'S. IABP 1:1, TO RIGHT FEMORAL AREA, 50CC BALLOON, 8 FR. NO HEMATOMA PALPATED, DRESSING INTACT. RIGHT PEDAL AND POST-TIBIAL PULSES PALPABLE, LEFT POST TIB AND PEDAL WITH DOPPLER. LEFT AND RIGHT RADIAL PULSES (+) PALPABLE. SKIN WARM AND DRY. HEPARIN INFUSING AT 1400 UNITS/HR. LUNGS COARSE BILATERALLY, WET, NON PRODUCTIVE COUGH AT THIS TIME. O2 3L/NC. SATS 96%. ABDOMEN - LARGE, SOFT, (+) B.S. NO BM SINCE ADMISSION. G.U - WEN TO DD, LIGHT ABIDA URINE, SLIGHTLY CLOUDY. MARGINAL OUTPUT. SKIN - WARM AND DRY, SMALL BRUISED AREA TO RIGHT HEAL, DOES NOT DEBRA. FEET ELEVATED ON PILLOWS BILATERALLY. REQUESTING MORPHINE, STATES IT HELPS WITH DISCOMFORT AND HELPS HER REST.
--- NOTE | 2019-06-05 20:00 | NUR ---
RIGHT FEMORAL AREA PUFFIER THAN LEFT BUT SOFT TO PALPATION AND PT. DENIES PAIN TO INSERTION BUT ADMITS TO SOME TENDERNESS AT IABP AND SG SITE. WILL CONTINUE TO MONITOR.
[2019-06-05] MEDS ORDERED: NOREPINEPHRINE 8 MG/250ML KIT 250 ML IV ONE (21:02)
[2019-06-05] MEDS ORDERED: SODIUM CHLORIDE 0.9% 500 ML IV ONE (21:30)
--- NOTE | 2019-06-05 21:30 | NUR ---
SPOKE TO DR. LOPEZ REGARDING LOW AUGMENTED AND MEAN PRESSURES WHEN HEART RATE ELEVATED AND IRREGULAR. CVP 2, PAD 7 AND PATIENT BEING IN SINUS TACH WITH FREQUENT PAC'S. ORDERS RECEIVED TO INITIATE JOHN IF NEEDED.
[2019-06-05] MEDS ORDERED: ASCORBIC ACID 500 MG TAB PO ONE (22:00)
[2019-06-05] MEDS ORDERED: PHENYLEPHRINE IV 250 ML IV ONE (22:19)
[2019-06-05] MEDS: ATORVASTATIN 20 MG TAB PO SCH (22:29)
[2019-06-05] MEDS: MUPIROCIN 2% OINT 15gm or 22gm TOP SCH (22:29)
[2019-06-05] MEDS: PHENYLEPHRINE INJ 20 MG in D5W 5% 250 ML IV SCH (22:29)
--- NOTE | 2019-06-05 23:30 | NUR ---
CONTINUES TO C/O RIGHT HIP TO MID THIGH PAIN, WILL PROVIDE P.O PAIN MED, AND REPOSITIONED. WARM PACK TO AREA
[2019-06-06] VITALS (44 sets, daily range): BP systolic 17–111; BP diastolic -2–66
--- NOTE | 2019-06-06 | NUR ---
RIGHT FEMORAL SITE UNCHANGED FROM BEGINNING OF SHIFT. PT. CONT. C/O PAIN TO LATERAL SIDE OF THIGH, WILL CONTINUE TO MONITOR.
[2019-06-06] MEDS: ALBUTEROL SULF 2.5 MG/0.5ML(0.5%) NEB SOLN NEB SCH ×2 (00:03→06:44)
[2019-06-06] MEDS: InsuLIN REG 1unit/0.01ml Soln (100units/ml) SC SCH ×2 (00:03→05:54)
[2019-06-06] MEDS: IPRATROPIUM BROM 0.5 MG/2.5ML INH SOL NEB SCH ×2 (00:03→06:44)
--- NOTE | 2019-06-06 00:10 | NUR ---
HR 120'S AFTER ALBUTEROL TREATMENT. AUGMENTED PRESSURES 88, MEAN 63. ABDOMINAL BREATHING NOTED AT THIS TIME, RR 29, SATS 95%. SPOKE TO JERI LEON WILL PLACE PT. ON BI-PAP.
--- NOTE | 2019-06-06 01:30 | NUR ---
HEMATOMA/DR. IBRAHIM- PT VERY RESTLESS, STATES TENDER AND PAINFUL AT IABP AND SG SITE, DOPPLER PULSES TO RIGHT FOOT UNCHANGED, BUT INNER THIGH MUCH MORE SWOLLEN AND FIRM THAN PREVIOUSLY NOTED. SPOKE TO DR. RAYO REGARDING CHANGES, ORDERS FOR STAT U/S OF RIGHT FEMORAL AREA RECEIVED.
--- NOTE | 2019-06-06 01:42 | NUR ---
CONTINUOUS DRYOUT OPERATOR HELPER PAGED TO REQUEST U/S TECH PAGED. PRESSURE BEING APPLIED TO RIGHT FEMORAL AREA, HEPARIN STOPPED AT THIS TIME.
[2019-06-06] MEDS: MORPHINE SULFATE 4 MG/ML SYR/VIAL IV PRN (01:50)
[2019-06-06] MEDS ORDERED: CHLORHEXIDINE 4% TOPICAL soln 118ml TOP ONE (02:00)
--- NOTE | 2019-06-06 02:30 | NUR ---
U/S TECH HERE, STUDY IN PROGRESS.
[2019-06-06 02:36] LABS: Basophils # (auto) 0 uL; Basophils % (auto) 0.3 % (0.0-2.0); Eosinophils # (auto) 0 uL; Eosinophils % (auto) 0.1 % (0.0-7.0); Hematocrit 28.4 % (36.0-46.0); Hemoglobin 9.9 g/dL (12.2-16.2); Lymphocytes # (auto) 0.7 uL; Lymphocytes % (auto) 9.2 % (10.0-50.0); Mean Corpuscular Hemoglobin 32.2 pg (28.0-32.0); Mean Corpuscular Hgb Conc. 34.9 g/dL (32.0-36.0); Mean Corpuscular Volume 92.3 fL (80.0-100.0); Monocytes # (auto) 0.7 uL; Neutrophils # (auto) 5.9 uL; Neutrophils % (auto) 80.4 % (37.0-80.0); Platelet Count (auto) 99 10^3/uL (140-450); Red Blood Cells 3.08 10^6/uL (4.0-5.20); Red Cell Distribution Width 13.3 % (11.8-14.3); White Blood Cell 7.4 10^3/uL (4.4-10.8)
[2019-06-06 03:15] LABS: INR 1.18 (0.9-1.15)
--- NOTE | 2019-06-06 03:15 | NUR ---
LOW URINE OUTPUT - SPOKE TO DR. JENKINS REGARDNG NO URINE OUTPUT FOR THIS HOUR AN 40CC LAST 2 HRS. ORDERS FOR LASIX RECEIVED. MEAN PRESSURE 64, AUGMENTED 102, UNASSISTED BP 64/41
[2019-06-06 03:16] LABS: Partial Thromboplastin Time 123.8 sec (23.64-32.05)
[2019-06-06] MEDS ORDERED: FUROSEMIDE 20 MG/2 ML VIAL IV ONE ×3 (03:30→23:00)
--- NOTE | 2019-06-06 04:00 | NUR ---
CHG BATH GIVEN. ALL LEADS CHANGED, LINE CHANGED. SOB WITH LYING DOWN LARGE AMT. OF BLOODY DRAINAGE FROM IABP INSERTION SITE. DRESSING CHANGED. PRESSURE DRESSING APPLIED.
--- NOTE | 2019-06-06 04:10 | NUR ---
CRITICAL - TROPONIN 12.4, PHYSICIANS AWARE. PT. POST HEART CATH AND IABP
--- NOTE | 2019-06-06 04:45 | NUR ---
URINE OUTPUT: 20CC, LIGHT ABIDA URINE POST 20 MG IV LASIX. HR 94, SBP 102/57, CVP 4, PAP 29/9, MEAN - 62, AUGMENTED 89, WILL CONTINUE TO MONITOR.
--- NOTE | 2019-06-06 05:00 | NUR ---
PA CATH WAVE FORM DAMPEN, UNABLE TO DRAW BACK FROM PA PORT.
--- NOTE | 2019-06-06 05:15 | NUR ---
U/S RESULTS - PER RADIOLOGY, NO HEMATOMA, BUT EDEMA. HGB - 9.9, DOWN FROM 12.2
[2019-06-06] MEDS: SODIUM CHLOR 0.9% PF (SALINE LOCK) 10ML VIAL/SYR IV SCH (05:44)
[2019-06-06] MEDS: ACCU-CHEK COMFORT CURVE STRIP VI SCH ×4 (05:54→23:00)
[2019-06-06] MEDS ORDERED: ACCU-CHEK COMFORT CURVE STRIP VI ONE (06:00)
[2019-06-06] MEDS ORDERED: CHLORHEXIDINE 0.12% ORAL rinse 473ML MT ONE (06:00)
[2019-06-06] MEDS ORDERED: cefTRIAXone 1GM/50ML D5W 50 ML IV ONE (06:00)
--- NOTE | 2019-06-06 06:30 | NUR ---
REPORT TO BERHANE LAMAR
--- NOTE | 2019-06-06 06:30 | NUR ---
ASSUMED CARE OF PATIENT; Report received from Nahed LAMAR. Patient with no needs at this time. Patient aware of plan for open heart surgery today.
[2019-06-06] MEDS ORDERED: PHENYLEPHRINE IV 250 ML IV ONE (06:32)
[2019-06-06] MEDS: MUPIROCIN 2% OINT 15gm or 22gm TOP SCH (07:00)
[2019-06-06] MEDS: PHENYLEPHRINE INJ 20 MG in D5W 5% 250 ML IV SCH (07:20)
[2019-06-06] MEDS ORDERED: BACITRACIN INJ 50000 UNIT VIAL ONE ×2 (07:30→08:23)
[2019-06-06] MEDS ORDERED: HEPARIN 1,000 UNITS/ml 1ML VIAL ONE (07:30)
[2019-06-06] MEDS ORDERED: PAPAVERINE HCL 60 MG/2 ML 2ML VIAL ONE (07:30)
--- NOTE | 2019-06-06 07:35 | NUR ---
INITIAL/ONGOING ASSESSMENT; Patient with PA line in place to right groin, unable to obtain accurate tracing, per report physician is aware. Bilateral pedal pulses obtainable via doppler, bilateral feet are equally cool to touch. Patient with pressure dressing to IABP insertion site, no bleeding noted at this time. Patient denies pain, states that she was medicated by the rn shift mgr RN.
[2019-06-06] MEDS ORDERED: InsuLIN R (HUMAN) 100 UNITS in SODIUM CHL 0.9% 99 ML IV ONE (08:00)
[2019-06-06] MEDS ORDERED: AMINOCAPROIC ACID 5 GM in SODIUM CHL 0.9% 250 ML IV ONE (08:00)
[2019-06-06] MEDS ORDERED: AMINOCAPROIC ACID 10 GM in SODIUM CHL 0.9% 100 ML IV ONE (08:00)
[2019-06-06] MEDS ORDERED: EPINEPHrine HCL 4 MG in D5W 5% 250 ML IV ONE (08:00)
[2019-06-06] MEDS ORDERED: HEPARIN 30000 UNITS in SODIUM CHLORIDE 0.9% 1000 ML IV ONE (08:00)
[2019-06-06] MEDS ORDERED: PHENYLEPHRINE INJ 20 MG in SODIUM CHL 0.9% 250 ML IV ONE (08:00)
[2019-06-06] MEDS ORDERED: NOREPINEPHRINE 8 MG/250ML KIT 250 ML IV ONE (08:00)
[2019-06-06] MEDS ORDERED: NITROGLYCERIN 50MG/250ML 250 ML IV ONE (08:14)
[2019-06-06] MEDS ORDERED: MANNITOL FTV 25% 12.5 GM/50 ML 100 ML IV ONE (08:23)
[2019-06-06] MEDS ORDERED: ALBUMIN 25% 400 ML IV ONE (08:23)
[2019-06-06] MEDS ORDERED: PLASMA-LYTE A pH7.4 4,000 ML INJ ONE (08:23)
[2019-06-06] MEDS ORDERED: MANNITOL 20 % (20GM/100ML) 1,000 ML IV ONE (08:23)
[2019-06-06] MEDS ORDERED: VANCOMYCIN HCL 1000 MG VL ONE ×2 (08:43→11:30)
[2019-06-06] MEDS ORDERED: ROCURONIUM 10MG/ML 10ML VIAL IV ONE ×2 (09:32→20:10)
[2019-06-06] MEDS ORDERED: PROPOFOL 10 MG/ML 20 ML IV ONE (09:32)
[2019-06-06] MEDS ORDERED: MIDAZOLAM HCL 1MG/1ML-2 ML VIAL ONE (09:36)
--- NOTE | 2019-06-06 09:37 | NUR ---
TO OR; Patient transported to OR on portable monitor and portable O2. Discussed with the OR nurse the need for insertion of a new PA catheter as the current one is not functioning properly. Verbalized understanding. Report given including allergies, as well as vital signs and accu-check results that are posted on front of chart. Patient sent to OR with application support administrator antibiotics.
[2019-06-06] MEDS ORDERED: VANCOMYCIN PER PHARMACY 0 MG IV SCH (09:45)
[2019-06-06] MEDS ORDERED: VANCOMYCIN 1GM/250ML 250 ML IV SCH (10:00)
[2019-06-06] MEDS ORDERED: MILRINONE 20 MG/100 ML IV ONE (10:45)
[2019-06-06] MEDS ORDERED: AMIODARONE HCL 900 MG/500ML D5W KIT IV ONE (10:45)
[2019-06-06] MEDS ORDERED: D5W IV ONE (10:45)
[2019-06-06] MEDS ORDERED: NOREPINEPHRINE 8 mg/250ml D5 BAG/KIT orNS IV ONE (10:51)
[2019-06-06] MEDS ORDERED: PIPERACILLIN-TAZOB 3.375GM 100 ML IV ONE ×2 (11:15)
[2019-06-06] MEDS ORDERED: fentaNYL CITRATE 100 MCG/2 ML VL ONE ×2 (11:45→14:51)
[2019-06-06] MEDS ORDERED: PIPERACILLIN-TAZOB 3.375GM 100 ML IV SCH (12:00)
[2019-06-06] MEDS ORDERED: MILRINONE 20MG/100ML 100 ML IV ONE (14:00)
--- NOTE | 2019-06-06 14:15 | NUR ---
Assessment Pt was in a procedure for open heart surgery when SW came to her room. SW called pt's family members without any response. SW will continue to reach out to pt and family for d/c needs. Addendum: 06/06/19 at 1418 by BARBY GLEZ Amended: Links added.
[2019-06-06] MEDS ORDERED: PROTAMINE SULFATE 10 MG/ML 5ML VIAL IV ONE (15:09)
[2019-06-06] MEDS ORDERED: ADENOSINE 6 MG/2 ML INJ IV ONE (15:09)
[2019-06-06] MEDS ORDERED: AMIODARONE HCL 150 MG in D5W 5% 100 ML IV ONE ×2 (17:15→21:00)
[2019-06-06] MEDS ORDERED: AMIODARONE HCL 900 MG in DEXTROSE 500 ML IV SCH ×2 (17:30→21:00)
[2019-06-06] MEDS ORDERED: GELATIN 1 SPONGE SIZE 100 TOP ONE (17:49)
[2019-06-06] MEDS ORDERED: GELATIN 1 SPONGE SIZE 50 TOP ONE ×2 (17:50→18:19)
[2019-06-06] MEDS ORDERED: THROMBIN (BOVINE) 5000 UNIT SOL VIAL ONE ×2 (17:50→18:19)
[2019-06-06] MEDS ORDERED: PHYTONADIONE (VIT K)10 MG/ML 1ML VIAL SUBCUT ONE (18:30)
[2019-06-06] MEDS ORDERED: DESMOPRESSIN ACET 4 MCG/1 ML AMPULE ONE (18:55)
[2019-06-06 18:57] LABS: Basophils # (auto) 0 uL; Basophils % (auto) 0.2 % (0.0-2.0); Eosinophils # (auto) 0 uL; Eosinophils % (auto) 0.3 % (0.0-7.0); Hematocrit 22.6 % (36.0-46.0); Hemoglobin 8.1 g/dL (12.2-16.2); Lymphocytes # (auto) 0.8 uL; Lymphocytes % (auto) 11.3 % (10.0-50.0); Mean Corpuscular Hemoglobin 31.3 pg (28.0-32.0); Mean Corpuscular Hgb Conc. 35.7 g/dL (32.0-36.0); Mean Corpuscular Volume 87.8 fL (80.0-100.0); Monocytes # (auto) 0.4 uL; Neutrophils # (auto) 5.8 uL; Neutrophils % (auto) 82.2 % (37.0-80.0); Platelet Count (auto) 81 10^3/uL (140-450); Red Blood Cells 2.58 10^6/uL (4.0-5.20); Red Cell Distribution Width 13.5 % (11.8-14.3); White Blood Cell 7.1 10^3/uL (4.4-10.8)
[2019-06-06 19:15] LABS: BUN/Creatinine Ratio 28.9; Calcium 7.8 mg/dL (8.5-10.1); Potassium 3.9 mmol/L (3.5-5.1)
[2019-06-06 19:24] LABS: INR 1.46 (0.9-1.15); Partial Thromboplastin Time 56.5 sec (23.64-32.05)
[2019-06-06] MEDS ORDERED: PROPOFOL 100 ML IV ONE ×2 (20:25→20:49)
[2019-06-06] MEDS: PHENYLEPHRINE IV 250 ML IV SCH (20:47)
[2019-06-06] MEDS ORDERED: SODIUM CHLORIDE 0.9% 200 ML IV PRN (20:47)
[2019-06-06] MEDS: NICARDIPINE 25MG/250ML BAG KIT 250 ML IV SCH (20:47)
[2019-06-06] MEDS ORDERED: NITROGLYCERIN 50MG/250ML 250 ML IV SCH (20:47)
[2019-06-06] MEDS: D5W/SOD CHL 0.45% 1,000 ML IV SCH (20:47)
[2019-06-06] MEDS ORDERED: INSULIN DRIP 100 UNIT/100ML 100 ML IV SCH (20:47)
--- NOTE | 2019-06-06 20:50 | NUR ---
RECEIVED PATIENT FROM OPERATING ROOM. PHYSICIAN, ANESTHESIOLOGY AT BEDSIDE. PT. CONNECTED TO ROOM MONITOR AND VIGILANCE, ALL LINES ZEROED. TEMP 97.6 CORE. CARDIAC - SINUS RHYTHM WITH OCCASIONAL PVC'S 90'S. SBP PER ART LINE 90'S. IABP 1:1, AUTO MODE, ECG TRIGGER, MEANS 80'S, AUGMENTED 100'S. IABP TO RIGHT FEMORAL AREA, 50 CC, 8 FR. NO HEMATOMA PALPATED AT THIS TIME, EDEMA/SWELLING FROM PREVIOUS SHIFTS REMAINS WITH NO CHANGES EXCEPT SOFTER. PEDAL PULSES WITH DOPPLER. RADIAL PULSES PALPABLE BILATERALLY. SKIN WARM AND DRY AT THIS TIME. LEVOPHED AT 17 MCG/MIN, AMIODARONE 1 MG/MIN., INSULIN AT 4 UNITS/HR, MILRINONE 0.3 MCG/KG/MIN. AND NS AT 100CC/HR. ATRIAL/ VENTRICULAR PACING WIRES IN PLACE, V- WIRES CONNECTED, A-WIRES OFF, PACER ON STAND BY. LUNGS - INSPIRATORY AND EXPIRATORY WHEEZES , LARGE AMT. OF THICK, MAROON SECRETIONS. NO ORAL SECRETIONS. FIO2 55%, TV 500, PEEP +5, RATE 12/AC MODE. 8 FR, 24 CM AT LIP. CHEST TUBE X3, MID STERNAL AREA, BRIGHT RED BLOOD AT THIS TIME. ALL CT CONNECTIONS TAPED. PLACED TO CHEST WALL SUCTION OGT CLAMPED AT THIS TIME, LIGHT BROWN DRAINAGE NOTED, HYPOACTIVE BOWEL SOUNDS. WEN WITH LARGE AMT. OF CLEAR, YELLOW URINE AT THIS TIME. IV - SWAN SHAINA TO RIJ 56 CM AT HUB, LEFT RADIAL ART. LINE, POSITIONAL, LEFT FEMORAL ART LINE WITH GOOD BLOOD RETURN BUT DAMPEN WAVE FORM. IABP TO RIGHT FEMORAL. IV SITE TO RIGHT HAND #20, # 18 TO LFA, BRUISED AND EDEMATOUS AT INSERTION SITE, WILL DISCONTINUE. MID STERNAL INCISION DRESSING INTACT. INNER KNEE ENDOSCOPIC INCISION INTACT, TAMMIE WRAP IN PLACE. LEFT FEMORAL AREA WITH LARGE AREA OF EDEMA WITH BRUISING AROUND ART. LINE INSERTION AREA. TAMMIE BANDAGE REPOSITIONED TO APPLY PRESSURE TO SITE. WILL CONTINUE TO MONITOR.
[2019-06-06] MEDS ORDERED: ALBUMIN 25% 250 ML IV PRN (21:00)
[2019-06-06] MEDS ORDERED: MORPHINE SULF INJ 2 MG/ML SYRINGE 1ML IV PRN (21:00)
[2019-06-06] MEDS ORDERED: NITROGLYCERIN 0.4 MG SL TAB SL PRN (21:00)
[2019-06-06] MEDS ORDERED: MORPHINE SULFATE 4 MG/ML SYR/VIAL IV PRN (21:00)
[2019-06-06] MEDS ORDERED: ALBUMIN 5% 250 ML IV PRN (21:00)
[2019-06-06] MEDS ORDERED: SODIUM BICARBONATE 8.4% INJ 50ML SYRINGE IV PRN (21:00)
[2019-06-06] MEDS ORDERED: MAGNESIUM SULFATE 1GM/100ML 100 ML IV PRN (21:00)
[2019-06-06] MEDS ORDERED: ONDANSETRON HCL 4 MG/2 ML VIAL IV PRN (21:00)
[2019-06-06] MEDS ORDERED: DEXTROSE (50%) 50ML SYRG IV PRN (21:00)
[2019-06-06] MEDS ORDERED: ZOLPIDEM TARTRATE 5 MG TAB PO PRN (21:00)
[2019-06-06] MEDS ORDERED: fentaNYL CITRATE 100 MCG/2 ML VL IV PRN (21:00)
[2019-06-06 21:25] LABS: Hematocrit 26.4 % (36.0-46.0); Hemoglobin 9.4 g/dL (12.2-16.2); Mean Corpuscular Hemoglobin 31.4 pg (28.0-32.0); Mean Corpuscular Hgb Conc. 35.6 g/dL (32.0-36.0); Mean Corpuscular Volume 88.1 fL (80.0-100.0); Platelet Count (auto) 107 10^3/uL (140-450); Red Cell Distribution Width 13.6 % (11.8-14.3); White Blood Cell 6.6 10^3/uL (4.4-10.8)
[2019-06-06 21:28] LABS: Basophils % (manual) 0 (0.0-2.0); Blast Cells 0; Eosinophils % (manual) 0 (0-7); Metamyelocytes % 0; Myelocytes % 0; Reactive Lymphocytes 0
[2019-06-06] MEDS: PROPOFOL 100 ML IV SCH (21:34)
[2019-06-06 21:35] LABS: INR 1.28 (0.9-1.15); Partial Thromboplastin Time 48.4 sec (23.64-32.05)
[2019-06-06 21:36] LABS: Albumin 3.9 g/dL (3.4-5.0); Calcium 7.1 mg/dL (8.5-10.1); Magnesium 3.8 mg/dL (1.6-2.6); Potassium 3.7 mmol/L (3.5-5.1)
[2019-06-06 21:38] LABS: BUN/Creatinine Ratio 30.1; Bilirubin, Total 2.7 mg/dL (0.2-1.0); Phosphorus 2.6 mg/dL (2.5-4.90); Total Protein 5.3 g/dL (6.4-8.2)
[2019-06-06] MEDS: MILRINONE 20MG/100ML 100 ML IV SCH (21:42)
[2019-06-06] MEDS: SODIUM CHLORIDE 0.9% 500 ML IV SCH (21:43)
[2019-06-06 21:44] LABS: Band Neutrophils % (manual) 3; Lymphocytes % (manual) 9 (10.0-50.0); Monocytes % (manual) 4 (0-12); Promyelocytes % 1
[2019-06-06] MEDS: NOREPINEPHRINE 8 MG/250ML KIT 250 ML IV SCH ×2 (21:47→22:52)
[2019-06-06] MEDS: CHLORHEXIDINE 0.12% ORAL rinse 473ML MT SCH (22:00)
[2019-06-06] MEDS: VANCOMYCIN 1GM/250ML 250 ML IV SCH (22:46)
[2019-06-06] MEDS: FUROSEMIDE INJECTION 250 MG in D5W 5% 225 ML IV SCH (23:00)
--- NOTE | 2019-06-06 23:00 | NUR ---
DRESSING TO LEFT RADIAL ART LINE AND IABP CHANGED. IV SITE TO LFA DISCONTINUED.
[2019-06-07] VITALS (109 sets, daily range): BP systolic 31–155; BP diastolic 16–59
--- NOTE | 2019-06-07 | NUR ---
CHEST TUBE OUTPUT LAST THREE HOURS - 165CC FROM Y'D ONES AND 16 CC FROM SINGLE ONE. URINE OUTPUT - 850. LASIX 20 MG IV PROVIDED EARLIER PER DR. STRICKLAND'S ORDERS. ORDER FOR LASIX DRIP NOTED, NOT STARTED AT THIS TIME. CVP - 11, MEAN PRESSIRE 81, AUGMENTED 101, SBP PER ART. LINE 107/37, LEVOPHED AT 22 MCG/MIN. OTHER DRIPS UNCHANGED.
[2019-06-07] MEDS: ACCU-CHEK COMFORT CURVE STRIP VI SCH ×23 (01:00→23:00)
[2019-06-07] MEDS: PHENYLEPHRINE IV 250 ML IV SCH (01:31)
[2019-06-07] MEDS: NICARDIPINE 25MG/250ML BAG KIT 250 ML IV SCH ×5 (01:47→21:47)
[2019-06-07] MEDS: POTASSIUM CHL 20MEQ/100ML 100 ML IV PRN ×4 (02:02→14:44)
[2019-06-07] MEDS: IPRATROPIUM BROM 0.5 MG/2.5ML INH SOL NEB SCH ×6 (02:05→22:25)
[2019-06-07 02:14] LABS: Basophils # (auto) 0.1 uL; Basophils % (auto) 0.9 % (0.0-2.0); Eosinophils # (auto) 0 uL; Hematocrit 26.2 % (36.0-46.0); Hemoglobin 9.4 g/dL (12.2-16.2); Lymphocytes # (auto) 0.5 uL; Lymphocytes % (auto) 5.1 % (10.0-50.0); Mean Corpuscular Hemoglobin 31.5 pg (28.0-32.0); Mean Corpuscular Volume 87.4 fL (80.0-100.0); Monocytes # (auto) 0.8 uL; Monocytes % (auto) 8.3 % (0.0-12.0); Neutrophils # (auto) 8.6 uL; Neutrophils % (auto) 85.7 % (37.0-80.0); Nucleated Red Blood Cells % 0.1 %; Platelet Count (auto) 89 10^3/uL (140-450); Red Cell Distribution Width 13.6 % (11.8-14.3)
[2019-06-07 02:32] LABS: BUN/Creatinine Ratio 22.9; Calcium 7.2 mg/dL (8.5-10.1); Magnesium 3.4 mg/dL (1.6-2.6); Potassium 3.3 mmol/L (3.5-5.1)
[2019-06-07 02:50] LABS: Phosphorus 2.3 mg/dL (2.5-4.90)
[2019-06-07] MEDS: AMIODARONE HCL 900 MG in DEXTROSE 500 ML IV SCH (03:00)
[2019-06-07] MEDS: PROPOFOL 100 ML IV SCH ×2 (03:12→21:01)
[2019-06-07] MEDS: NOREPINEPHRINE 8 MG/250ML KIT 250 ML IV SCH (04:33)
[2019-06-07] MEDS: D5W/SOD CHL 0.45% 1,000 ML IV SCH ×3 (04:47→20:47)
--- NOTE | 2019-06-07 05:00 | NUR ---
OPEN EYES AND WIGGLES TOES AND FINGERS SPONTANEOUSLY. NODES APPROPRIATELY
[2019-06-07] MEDS ORDERED: InsuLIN REG 1unit/0.01ml Soln (100units/ml) ONE (05:17)
[2019-06-07] MEDS: MILRINONE 20MG/100ML 100 ML IV SCH ×3 (05:54→21:00)
[2019-06-07] MEDS: CALCIUM GLUC 4.65meq/50ml D5AE 50 ML IV PRN ×3 (05:54→14:45)
--- NOTE | 2019-06-07 06:00 | NUR ---
U.O - [phone] : [address] [facility] [phone] - [phone]
[2019-06-07 06:21] LABS: Eosinophils # (auto) 0 uL; Hematocrit 24.9 % (36.0-46.0); Mean Corpuscular Hgb Conc. 36.7 g/dL (32.0-36.0); Monocytes # (auto) 1.1 uL; Nucleated Red Blood Cells % 0.1 %; White Blood Cell 11.5 10^3/uL (4.4-10.8)
[2019-06-07 06:25] LABS: Basophils # (auto) 0.2 uL; Basophils % (auto) 1.3 % (0.0-2.0); Hemoglobin 9.1 g/dL (12.2-16.2); Lymphocytes # (auto) 0.7 uL; Lymphocytes % (auto) 6.2 % (10.0-50.0); Mean Corpuscular Hemoglobin 31.5 pg (28.0-32.0); Mean Corpuscular Volume 85.9 fL (80.0-100.0); Monocytes % (auto) 9.3 % (0.0-12.0); Neutrophils # (auto) 9.5 uL; Neutrophils % (auto) 83.2 % (37.0-80.0); Platelet Count (auto) 94 10^3/uL (140-450); Red Cell Distribution Width 14.1 % (11.8-14.3)
[2019-06-07] MEDS: ACETYLCYSTEINE 10 %(100MG/ML) SOL 4ML NEB SCH ×3 (06:25→22:25)
--- NOTE | 2019-06-07 06:30 | NUR ---
CALL RECEIVED FROM DR. STRICKLAND, UPDATED, NO NEW ORDERS
--- NOTE | 2019-06-07 06:38 | NUR ---
Respiratory note: RECEIVED PATIENT ON V8 CARESCAPE VENT ORALLY INTUBATED WITH AN 8.0 ETT SECURED VIA DANIEL AT THE 23CM MARKING AT THE LIP, AND MECHANICALLY VENTILATED WITH THE SETTINGS. SPO2 96%, LUNG SOUNDS CLEAR/DIM T/O, SCANT AMOUNT OF THIN CLEAR SECRETIONS WHEN SUCTIONED. SKIN IS WARM/DRY TO THE TOUCH AND IS INTACT NEAR DANIEL SITE. THERE IS AN OGT IN PLACE AND SECURED TO THE ETT, A SWAN-DRISS CATHETER IS PLACED IN THE RIGHT IJ AND IS PATENT. THERE IS A DRESSING COVERING THE STERNAL SURGICAL INCISION AND SHOWING NO DRAINAGE. THREE CHEST TUBES ARE IN PLACE, 2 PLEURAL AND 1 MEDIASTINAL, THEY ARE ALL DRAINING. A LEFT RADIAL A-LINE IS IN PLACE WELL A LEFT FEMORAL A-LINE. IABP IS IN PLACE AND IS SET AT 1:1. PITTING EDEMA NOTED IN BILATERAL UPPER AND LOWER EXTREMITIES. PATIENT IS SEDATED ON A PROPOFOL DRIP AND IS UNRESPONSIVE TO ALL STIMULI. SHE IS RESTING COMFORTABLY AND TOLERATING VENT WELL, NO CHANGES MADE. VENT PLUGGED INTO RED OUTLET AND ALL ALARMS ARE SET AND AUDIBLE. WILL CONTINUE TO ASSESS PATEINT WELL VENTILATOR FUNCTION. [facility] RUN INLINE.
[2019-06-07 06:40] LABS: Potassium 4.1 mmol/L (3.5-5.1)
[2019-06-07 06:47] LABS: BUN/Creatinine Ratio 22.9; Calcium 7.3 mg/dL (8.5-10.1); Magnesium 3.2 mg/dL (1.6-2.6); Phosphorus 2.3 mg/dL (2.5-4.90)
--- NOTE | 2019-06-07 07:42 | NUR ---
REPORT GIVEN TO RAGHU LAMAR
--- NOTE | 2019-06-07 08:00 | NUR ---
AM ASSESSMENT: SBAR REPORT RECEIVED FROM NOC SHIFT RN ([id number]). PERFORMED AM ASSESSMENT AT THIS TIME WITH 0 COMPLICATIONS NOTED. SEE FLOWSHEET FOR MORE DETAILS. PT HAS SWAN DRISS IN PLACE TO RIGHT IJ (PLACEMENT MEASURED AT APPROX. 56CMS), SITE WNL. PT HAS A-LINES LOCATED TO LEFT RADIAL AND RIGHT FEMORAL, BOTH PATENT, WNL, WITH ACCURATE WAVEFORMS. PT HAS CHEST TUBES X3 IN PLACE (2-MEDIASTNAL, 1-PLEURAL) DRAINING SCANT AMOUNTS OF SEROSANGIOUS FLUIDS, NO AIR LEAK DETECTED, DSG IS C/D/I WITH 0 CREPITUS NOTED AT THIS TIME. AV WIRES INTACT AND PROPERLY ISOLATED (WIRES ARE NOT CONNECTED TO TEMP PACEMAKER). LEFT LEG DSG C/D/I WITH 0 OOZING NOTED AT THIS TIME. VSS. SEE IV SPREADSHEET FOR GTT DETAILS.
--- NOTE | 2019-06-07 08:15 | NUR ---
MD STRICKLAND ON PHONE. GAVE MD UPDATE ON PT OVERALL STATUS. NEW ORDERS GIVEN AND IMPLEMENTED, VSS.
[2019-06-07] MEDS: ALBUMIN 25% 100 ML IV SCH ×2 (08:45→16:15)
[2019-06-07] MEDS ORDERED: ALBUMIN 25% 100 ML IV ONE (08:45)
[2019-06-07] MEDS ORDERED: cefTRIAXone 1GM/50ML D5W 50 ML IV SCH (09:00)
--- NOTE | 2019-06-07 09:30 | NUR ---
PT'S SHARON AT BEDSIDE. UPDATED FAMILY WITH PT'S STATUS AND CONDITION. NO FURTHER QUESTIONS AT THIS TIME, VSS.
[2019-06-07] MEDS: PANTOPRAZOLE 40 MG/10 ML VIAL INJ IV SCH ×2 (10:00→10:22)
--- NOTE | 2019-06-07 10:03 | NUR ---
Assessment Pt is a 74 yr old female who had open heart surgery and is still recovering and unawake. Pt contacted pt's , Enrique, at [phone] to ask questions. Enrique stated that prior to admit, pt lived at home with him, was ambulatory but in the last couple of months has had very low energy and has been unable to cook or clean much. Pt has not needed DME in the past. Pt has not been to the doctor in over 30 yrs, in spite of 's prompts, and does not have a Primary doctor. stated that pt also just found out that she has diabetes. Pt has an Advanced medical directive on file. SW stated that SW will reassess for d/c needs closer to d/c. Addendum: 06/07/19 at 1010 by BARBY GLEZ Amended: Links added.
[2019-06-07] MEDS: CHLORHEXIDINE 0.12% ORAL rinse 473ML MT SCH ×2 (10:08→22:00)
[2019-06-07] MEDS: VANCOMYCIN 1GM/250ML 250 ML IV SCH ×2 (10:08→21:41)
[2019-06-07] MEDS: PIPERACILLIN-TAZO 4.5GM 100 ML IV SCH ×2 (10:22→17:56)
--- NOTE | 2019-06-07 10:30 | NUR ---
MD YEE AT BEDSIDE. UPDATED MD ON PT OVERALL STATUS. NEW ORDERS GIVEN AND IMPLEMENTED, VSS.
--- NOTE | 2019-06-07 10:45 | NUR ---
LOGISTICS LEAD ELLIOT AT BEDSIDE. UPDATED LOGISTICS LEAD ON PT OVERALL STATUS. NO NEW ORDERS AT THIS TIME, VSS. LOGISTICS LEAD AWARE OF PT CONDITION.
[2019-06-07] MEDS ORDERED: ADENOSINE 6 MG/2 ML INJ IV ONE (13:16)
[2019-06-07] MEDS ORDERED: POTASSIUM CHL 2MEQ/ML 20ML IV ONE (13:16)
[2019-06-07] MEDS ORDERED: SODIUM BICARBONATE 8.4 % INJ 50ML VIAL IV ONE (13:16)
[2019-06-07] MEDS ORDERED: TRANEXAMIC ACID 1,000 mg/10ml INJ VIAL IV ONE (13:16)
[2019-06-07] MEDS ORDERED: MAGNESIUM SULF 50% 40 MEQ/10 ML VL IV ONE (13:16)
[2019-06-07] MEDS ORDERED: LIDOCAINE HCL 100 MG/5ML (2%) SYRG INJ IV ONE (13:16)
[2019-06-07] MEDS ORDERED: MILRINONE 1 MG/ML 20ML VIAL INJ IV ONE (13:16)
[2019-06-07] MEDS ORDERED: CALCIUM CHLOR(10%) 100MG/ML 10ML SYRINGE IV ONE (13:16)
[2019-06-07] MEDS ORDERED: HEPARIN SODIUM (PORCINE) 5000 UNITS/ML 1ML VIAL SC ONE (13:16)
[2019-06-07] MEDS ORDERED: CALCIUM GLUC 4.65 MEQ/10ML IV ONE (13:16)
[2019-06-07] MEDS ORDERED: PHENYLEPHRINE HCL 10 MG/ML VL IV ONE (13:16)
[2019-06-07] MEDS ORDERED: MANNITOL 20 % (20GM/100ML) SOLN 500ML IV ONE (13:30)
[2019-06-07] MEDS ORDERED: ALBUMIN 25% IV ONE (13:30)
--- NOTE | 2019-06-07 13:35 | NUR ---
MD LOPEZ AT BEDSIDE. UPDATED MD ON PT OVERALL STATUS. NO NEW ORDERS AT THIS TIME, VSS.
--- NOTE | 2019-06-07 14:15 | NUR ---
MD STRICKLAND AT BEDSIDE. UPDATED MD ON PT OVERALL STATUS INCLUDING CLIMBING TEMPS (HIGHEST TEMP DOCUMENTED AT THIS TIME IS 99.6) AND OCCASIONAL SBP DROP (UNPROVOKED). MD MADE AWARE, NEW ORDERS GIVEN AND IMPLEMENTED. VSS.
[2019-06-07] MEDS ORDERED: FUROSEMIDE 20 MG/2 ML VIAL ONE (14:17)
--- NOTE | 2019-06-07 14:21 | NUR ---
Respiratory note: PATIENT PLACED ON PSV AT THIS TIME PER DR. STRICKLAND'S BEDSIDE ORDER. PS 8, PEEP5 PATIENT SEEMS TO BE TOLERATING MODE WELL BUT HAS BECOME TACHYPNEIC. AT BEDSIDE COACHING PATIENT FOR BETTER RESPIRATORY RATE. PATIENT LASTED APPROX 4MIN ON PSV AND WAS COMPLAINING OF SOB. PATIENT SWITCHED BACK TO PREVIOUSLY ORDERED SETTINGS PER DR. STRICKLAND'S ORDER. WILLARD ORELLANA AT BEDSIDE AND AWARE OF PSV TRIAL AND ALL CHANGES. PATIENT CONFIRMS COMFORT ONCE PLACED BACK ON AC SETTINGS. RR: 32 VT: 355 HR: 93 BP: 144/42
[2019-06-07] MEDS ORDERED: FUROSEMIDE 20 MG/2 ML VIAL IV ONE ×2 (14:23→14:30)
[2019-06-07] MEDS: D5W/SOD CHLO 0.9% 1,000 ML IV SCH (14:30)
--- NOTE | 2019-06-07 14:30 | NUR ---
PT PLACED ON PRESSURE SUPPORT MODE TO TEST FOR POSSIBLE EXTUBATION. PT WAS ON MODE FOR APPROXIMATELY 3 MINUTES BEFORE PT RESPONDED SHE COULD NOT BREATHE AND WAS UNCOMFORTABLE (RESPIRATION RATES JUMPED TO >35, O2 SATS MAINTAINED >90%). MD AWARE, RT CYN PLACED PT BACK ON PREVIOUS VENT SETTINGS PER MD ORDERS. VSS. WILL TRY AND EXTUBATE TOMORROW IF PT IS READY.
[2019-06-07 14:59] LABS: Basophils # (auto) 0 uL; Basophils % (auto) 0.1 % (0.0-2.0); Eosinophils # (auto) 0 uL; Hematocrit 24.3 % (36.0-46.0); Hemoglobin 8.4 g/dL (12.2-16.2); Lymphocytes # (auto) 1.2 uL; Platelet Count (auto) 86 10^3/uL (140-450); Red Cell Distribution Width 14.1 % (11.8-14.3)
[2019-06-07 15:00] LABS: Mean Corpuscular Hemoglobin 30.6 pg (28.0-32.0); Mean Corpuscular Hgb Conc. 34.6 g/dL (32.0-36.0); Mean Corpuscular Volume 88.5 fL (80.0-100.0); Monocytes # (auto) 1.4 uL; Neutrophils # (auto) 10.4 uL; Neutrophils % (auto) 79.9 % (37.0-80.0); Nucleated Red Blood Cells % 0.4 %; Red Blood Cells 2.75 10^6/uL (4.0-5.20)
[2019-06-07 15:18] LABS: BUN/Creatinine Ratio 20.8; Calcium 7.9 mg/dL (8.5-10.1); Magnesium 2.9 mg/dL (1.6-2.6); Phosphorus 2.2 mg/dL (2.5-4.90); Potassium 4.4 mmol/L (3.5-5.1)
--- NOTE | 2019-06-07 15:43 | NUR ---
UPDATED MD STRICKLAND AT THIS TIME REGARDING ABNORMAL LAB VALUES (HGB DROPPED TO 8.4). AWARE, AND SUGGESTS TO MONITOR LEVELS AT THIS TIME. MD UPDATED ON PT'S PRESSURE SUPPORT TRIAL (UNSUCCESSFUL DUE TO INCREASED DISCOMFORT WITH HIGH RESPIRATORY RATES). AWARE AND RECOMMENDS MD PEARCE MANAGE VENTILATOR AT THIS TIME. VSS.
--- NOTE | 2019-06-07 16:26 | NUR ---
MD ALVAREZ AT BEDSIDE WITH MD STRICKLAND. UPDATED MD'S ON PT OVERALL STATUS. NEW ORDERS GIVEN AND IMPLEMENTED, VSS. PT TO START ON FENTANYL GTT FOR COMFORT AND WEANING (IF POSSIBLE) OF PROPOFOL.
[2019-06-07] MEDS: fentaNYL Drip 2500mCg/250mlNS 250 ML IV SCH (16:46)
--- NOTE | 2019-06-07 18:37 | NUR ---
MD STRICKLAND ON PHONE. UPDATED MD ON PT STATUS (UNCHANGED FOR THE MOST PART). PER MD, IABP TO BE CHANGED TO 1:2 FREQUENCY AT THIS TIME HOWEVER, IF C.I. DROPS TO < 2.3 AND SUSTAINS, ORDERS ARE TO BRING IABP FREQUENCY BACK TO 1:1 RATIO. AT THIS TIME, PT IS TOLERATING CHANGE ALTHOUGH C.I. IS SLOWLY DECREASING. WILL CONTINUE TO MONITOR, VSS.
--- NOTE | 2019-06-07 18:45 | NUR ---
PT PLACED BACK ON IABP FREQUENCY OF 1:1 AT THIS TIME (PT DROPPED TO 2.0 AND WAS CONTINUOUSLY DROPPING) PER MD ORDERS (TOTAL TIME ON 1:2 MODE WAS APPROXIMATELY 10 MINUTES). ONCE PT PLACED BACK ON 1:1 MODE., C.I. SLOWLY INCREASING AGAIN (CURRENTLY AT 2.1). WILL CONTINUE TO MONITOR PROGRESS. VSS.
--- NOTE | 2019-06-07 19:45 | NUR ---
A-FIB - PT. NOTED TO BE IN ATRIAL FIB 130'S, EKG DONE. PT'S PRESSURES PER ART LINE 110/40'S, CVP 11, PAP 30/24'S, AUMENTED PRESSURES 110'S, MEAN LOW 80'S. SPOKE TO DR. STRICKLAND AND UPDATED, ORDERS FOR LABETALOL 5 MG IV RECEIVED, DISCUSSED WITH . THE OPTION OF INCREASING AMIO TO 1 MG/MIN OR ATENOLOL, DECLINES. WILL PROVIDE LABETALOL.
[2019-06-07] MEDS ORDERED: LABETALOL HCL 5 MG/ML ML 20ML VIAL IV ONE ×2 (19:54→20:00)
[2019-06-07] MEDS ORDERED: LABETALOL HCL 5 MG/ML ML 20ML VIAL IV PRN (20:00)
--- NOTE | 2019-06-07 20:05 | NUR ---
LABETALOL 5 MG IV GIVEN. HR 114-120, STILL A-FIB. SBP 89/33 PER ART. AUGMENTED 80'S, MEANS 60'S. LEVOPHED INCREASED TO ASSIST WITH LOW PRESSURES.
--- NOTE | 2019-06-07 20:25 | NUR ---
SPOKE TO DR. STRICKLAND TO INFORM ABOUT CHANGES IN PRESSURES. INSTRUCTED TO INCREASE AMIODARONE TO 1 MG/MIN. DONE. INSTRUCTED TO CALL DR. LOPEZ AND INFORM ABOUT HEART RATE AND RHYTHM CHANGES.
--- NOTE | 2019-06-07 20:40 | NUR ---
SPOKE TO DR. CHAMBERS COVERING FOR DR. LOPEZ, UPDATED ON STATUS AND ORDERS FOR DIGOXIN RECEIVED, WILL PROVIDE.
[2019-06-07] MEDS ORDERED: DIGOXIN (250MCG/ML) 2 ML AMPULE IV ONE (21:00)
[2019-06-07] MEDS ORDERED: DIGOXIN (250MCG/ML) 2 ML AMPULE ONE (21:11)
[2019-06-07] MEDS ORDERED: INSULIN DRIP 100 UNIT/100ML 100 ML IV SCH (21:13)
[2019-06-07] MEDS ORDERED: DEXTROSE (50%) 50ML SYRG IV PRN (21:15)
--- NOTE | 2019-06-07 22:10 | NUR ---
CALL RECEIVED FROM DR. STRICKLAND, UPDATED ON PRESSURES AND HR, DRIPS, IABP
[2019-06-07 22:32] LABS: Calcium 7.4 mg/dL (8.5-10.1); Magnesium 2.8 mg/dL (1.6-2.6); Phosphorus 2.8 mg/dL (2.5-4.90); Potassium 4.3 mmol/L (3.5-5.1)
[2019-06-08] VITALS (117 sets, daily range): BP systolic 35–176; BP diastolic 21–134
[2019-06-08] MEDS ORDERED: CALCIUM GLUC 4.65meq/50ml D5AE 50 ML IV PRN (00:30)
[2019-06-08] MEDS: CALCIUM GLUC 4.65meq/50ml D5AE 50 ML IV PRN ×3 (00:52→17:16)
[2019-06-08] MEDS: FUROSEMIDE INJECTION 250 MG in D5W 5% 225 ML IV SCH ×2 (01:00→23:00)
[2019-06-08] MEDS: ACCU-CHEK COMFORT CURVE STRIP VI SCH ×15 (01:00→20:00)
[2019-06-08 01:01] LABS: Basophils # (auto) 0 uL; Eosinophils # (auto) 0 uL; Eosinophils % (auto) 0.1 % (0.0-7.0); Lymphocytes # (auto) 1.3 uL
[2019-06-08 01:03] LABS: Basophils % (auto) 0.1 % (0.0-2.0); Hematocrit 20.9 % (36.0-46.0); Hemoglobin 7.6 g/dL (12.2-16.2); Lymphocytes % (auto) 10.5 % (10.0-50.0); Mean Corpuscular Hemoglobin 31.8 pg (28.0-32.0); Mean Corpuscular Hgb Conc. 36.3 g/dL (32.0-36.0); Mean Corpuscular Volume 87.5 fL (80.0-100.0); Monocytes # (auto) 1.6 uL; Monocytes % (auto) 12.9 % (0.0-12.0); Neutrophils # (auto) 9.6 uL; Neutrophils % (auto) 76.4 % (37.0-80.0); Nucleated Red Blood Cells % 0.6 %; Platelet Count (auto) 76 10^3/uL (140-450); Red Blood Cells 2.38 10^6/uL (4.0-5.20); Red Cell Distribution Width 14.1 % (11.8-14.3); White Blood Cell 12.6 10^3/uL (4.4-10.8)
[2019-06-08] MEDS: NOREPINEPHRINE 8 MG/250ML KIT 250 ML IV SCH (01:21)
[2019-06-08] MEDS: SODIUM CHLORIDE 0.9% 500 ML IV SCH ×2 (01:31→21:06)
[2019-06-08] MEDS: ALBUMIN 25% 100 ML IV SCH (02:09)
--- NOTE | 2019-06-08 02:12 | NUR ---
HGB 7.4, WILL TRANSFUSE 1 UNIT
[2019-06-08] MEDS: PROPOFOL 100 ML IV SCH ×2 (02:15→11:15)
[2019-06-08] MEDS: PIPERACILLIN-TAZO 4.5GM 100 ML IV SCH ×3 (02:30→18:07)
[2019-06-08] MEDS: NICARDIPINE 25MG/250ML BAG KIT 250 ML IV SCH ×4 (02:47→22:47)
[2019-06-08] MEDS: AMIODARONE HCL 900 MG in DEXTROSE 500 ML IV SCH ×2 (03:00→12:43)
[2019-06-08 06:18] LABS: Hemoglobin 8.2 g/dL (12.2-16.2)
[2019-06-08 06:25] LABS: Mean Corpuscular Hemoglobin 31.2 pg (28.0-32.0); Mean Corpuscular Hgb Conc. 35.9 g/dL (32.0-36.0); Platelet Count (auto) 64 10^3/uL (140-450); Red Blood Cells 2.64 10^6/uL (4.0-5.20); Red Cell Distribution Width 14.1 % (11.8-14.3); White Blood Cell 12.1 10^3/uL (4.4-10.8)
[2019-06-08 06:37] LABS: Basophils % (manual) 0 (0.0-2.0); Blast Cells 0; Eosinophils % (manual) 0 (0-7); Potassium 4.3 mmol/L (3.5-5.1); Promyelocytes % 0
[2019-06-08 06:46] LABS: BUN/Creatinine Ratio 24.5; Calcium 7.6 mg/dL (8.5-10.1)
[2019-06-08] MEDS: D5W/SOD CHL 0.45% 1,000 ML IV SCH ×2 (07:00→12:47)
--- NOTE | 2019-06-08 07:35 | NUR ---
REPORT GIVEN TO ELLIOT LAMAR
--- NOTE | 2019-06-08 07:37 | NUR ---
LASIX 5 MG FOR U.O < THAN 30CC LEVOPHED 11 MCG/MIN
--- NOTE | 2019-06-08 07:40 | NUR ---
OPENING SHIFT NOTE Report received from Nahed LAMAR, care assumed. Patient observed in bed, intubated on ventilator. PT tolerating ventilator at this time. Patient under sedation of Diprivan and Versed. Patient opens eyes and respond to stimuli. Afebrile. Physical assessment performed. Right groin IABP, dressing CDI. Pulses noted with doppler on bilateral extremities. Radial pulses palpable. Patient running atrial fib 102-114 bpm, pt on Amiodarone IV. Blood pressure stable on Levophed and Milrinone gtt. Arterial line noted left groin and left radial, dressing CDI. [place] catheter noted in right IJ [id number] cm at hub. All lines zero and calibrated. Chest tubes x 3 patent, no air leak. Ramos catheter present, patent, and secured below bladder. CRISTIANE hose applied to bilateral lower extremities, heels off loaded on pillows. See skin/wound assessment. Bed locked in lowest position, HOB greater than 30 degrees, alarms in place. Will continue to monitor.
--- NOTE | 2019-06-08 07:50 | NUR ---
MD UPDATE called for update. Nahed LAMAR spoke with MD, orders placed regarding IABP weaning.
[2019-06-08] MEDS ORDERED: ALBUMIN 25% 100 ML IV ONE (08:00)
--- NOTE | 2019-06-08 08:10 | NUR ---
FAMILY AT BEDSIDE Family of KEVANMALVIN updated on patient's status and condition. All questions and concerns addressed. Enrique () verbalized understanding.
--- NOTE | 2019-06-08 08:30 | NUR ---
MD UPDATE called for update on labs, C.I/C.O., vitals, and urine output. Orders obtained to titrate down fentanyl gtt, PLT 2 units on hold, after albumin administration to change IABP 1:2. Orders placed. Will notify MD of any changes from baseline.
[2019-06-08] MEDS: MILRINONE 20MG/100ML 100 ML IV SCH ×2 (08:43→15:28)
[2019-06-08 09:27] LABS: Band Neutrophils % (manual) 2; Lymphocytes % (manual) 9 (10.0-50.0); Metamyelocytes % 2; Monocytes % (manual) 13 (0-12); Myelocytes % 1; Reactive Lymphocytes 1
[2019-06-08] MEDS: VANCOMYCIN 1GM/250ML 250 ML IV SCH (09:44)
[2019-06-08] MEDS: PANTOPRAZOLE 40 MG/10 ML VIAL INJ IV SCH (09:47)
[2019-06-08] MEDS: DIGOXIN (250MCG/ML) 2 ML AMPULE IV SCH (09:49)
[2019-06-08] MEDS: CHLORHEXIDINE 0.12% ORAL rinse 473ML MT SCH ×2 (09:52→22:21)
--- NOTE | 2019-06-08 10:20 | NUR ---
IABP Ratio changed to 1:2 per MD order. Patient tolerating well, will continue to monitor hemodynamics.
[2019-06-08 10:26] LABS: Hemoglobin 7.8 g/dL (12.2-16.2)
[2019-06-08 10:28] LABS: Mean Corpuscular Hgb Conc. 35.4 g/dL (32.0-36.0); Mean Corpuscular Volume 87.6 fL (80.0-100.0); Platelet Count (auto) 60 10^3/uL (140-450); Red Blood Cells 2.51 10^6/uL (4.0-5.20); White Blood Cell 11.5 10^3/uL (4.4-10.8)
[2019-06-08] MEDS: D5W/SOD CHLO 0.9% 1,000 ML IV SCH (10:30)
[2019-06-08 10:32] LABS: Basophils % (manual) 0 (0.0-2.0); Blast Cells 0; Eosinophils % (manual) 0 (0-7); Promyelocytes % 0; Reactive Lymphocytes 0
[2019-06-08] MEDS: ACETYLCYSTEINE 10 %(100MG/ML) SOL 4ML NEB SCH ×2 (10:33→22:05)
[2019-06-08] MEDS: IPRATROPIUM BROM 0.5 MG/2.5ML INH SOL NEB SCH ×4 (10:33→22:06)
--- NOTE | 2019-06-08 10:57 | NUR ---
BLOOD PRODUCTS Administration of 1 unit PRBC begun per MD request. Vital signs stable at this time. No reactions noted. Will continue to monitor.
[2019-06-08 11:13] LABS: Albumin 4.1 g/dL (3.4-5.0); BUN/Creatinine Ratio 23.9; Calcium 7.3 mg/dL (8.5-10.1); Total Protein 5.7 g/dL (6.4-8.2)
--- NOTE | 2019-06-08 11:35 | NUR ---
UPDATE Spoke with regarding IABP 1:2, blood product administration, hemodynamics and urine output. No new orders received at this time. Will continue to monitor.
[2019-06-08] MEDS: POTASSIUM CHL 20MEQ/100ML 100 ML IV PRN ×2 (11:39→13:05)
--- NOTE | 2019-06-08 11:42 | NUR ---
ELECTROLYTE REPLACEMENT Potassium 4.0, per protocol replacement ordered. First KCL rider administration begun.
--- NOTE | 2019-06-08 12:05 | NUR ---
IABP at bedside assessing patient. IABP 1:3, hemodynamics stable at this time.
--- NOTE | 2019-06-08 12:15 | NUR ---
SEDATION wants to decrease sedation to allow patient to be awake and allow blood pressures to increase. Patient able to follow commands. No distress noted. Patient denies pain at this time. Will continue to monitor.
--- NOTE | 2019-06-08 12:22 | NUR ---
MD VISIT at bedside assessing patient. MD reviewing chart. Orders received.
[2019-06-08] MEDS ORDERED: DEXTROSE (50%) 50ML SYRG IV PRN (12:30)
--- NOTE | 2019-06-08 13:24 | NUR ---
BLOOD PRODUCTS 1 Unit Platelet administration begun Per MD request. Vitals stable, no signs of reaction. Will continue to monitor.
--- NOTE | 2019-06-08 13:48 | NUR ---
MD VISIT at bedside assessing patient. MD reviewing chart. Orders obtained for Cpap trial in AM.
--- NOTE | 2019-06-08 14:06 | NUR ---
Nutrition Follow-up Notes Wt.: 110.1 kg today. 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 Pt's currently sedated with Propofol @ 4.162 ml/hr providing 110 kcal, form Fat, remains NPO, no order for alternate nutrition support yet at this time. Est. Needs: 1750 kcal to 1850 kcal (18-20 kcal/kgBW), 78 gms to 101 gms pro (1.0-1.3 gms/kgIBW: 78 kg). Will continue to monitor pertinent labs and reassess nutrient need prn Labs: Gluc 145 H, BUN 23 H, Ca 7.6 L; HbA1c 13.7 H, Skin: Eh scale 14, mod risk, anterior medical chest incision dry and intact per sludge filtration attendant. GI: Pt's no bowel activity since 06/02/19 per sludge filtration attendant. PES: Increased nutrient needs r/t acute/chronic medical condition aeb s/p heart surgery, intubated, sedated, NPO. Altered nutrition related lab values r/t current/chronic medical condition aeb hyperglycemia, hyponatremia, elev. BUN, Trop I. HbA1c, hypocalcemia Obesity r/t food intake more than body requirement aeb 165% IBW, BMI 34.8 kg/m2 and increased body adiposity Will continue to monitor NPO status, skin status, pertinent labs and weight trend. F/u in 2 to 3 days. Rec.: 1.) If still NPO in next 48 hrs, consider alternate nutrition/EN support with formula choice of Glucerna 1.2 Yaw @ 60 ml/hr goal rate as tolerated while on current rate of Propofol if medically appropriate. 2.) Advance gradually to oral diet when medically appropriate. 3.) Refer pt to CDE/RD for further nutrition education and weight monitoring upon discharge. 4.) Continue current plan of care.
[2019-06-08 14:21] LABS: Band Neutrophils % (manual) 10; Lymphocytes % (manual) 18 (10.0-50.0); Metamyelocytes % 2; Monocytes % (manual) 7 (0-12); Myelocytes % 1
--- NOTE | 2019-06-08 15:03 | NUR ---
ELECTROLYTE REPLACEMENT Calcium 7.3, per protocol replacement needed. First bag administration begun.
--- NOTE | 2019-06-08 15:45 | NUR ---
NEURO ASSESSMENT Patient is awake, alert, and able to follow commands. Patient denies pain at this time. Patient understands concepts and is able to nod yes and no. Patient able to move upper extremities and bilateral feet. Oral care performed. Vitals stable. Will continue to monitor. No distress noted at this time.
--- NOTE | 2019-06-08 16:05 | NUR ---
IABP REMOVAL BY MD Leon at bedside to remove IABP from right groin. Patient educated on procedure for removal. Patient acknowledges understanding. Denies pain or distress at this time. Once removed, Walt PRODUCTION WOOD CRAFTSMAN holding manual pressure for 15-20 minutes. Will monitor for bleeding and changes in vital signs.
[2019-06-08] MEDS: fentaNYL Drip 2500mCg/250mlNS 250 ML IV SCH ×2 (16:24→21:53)
[2019-06-08] MEDS: InsuLIN REG 1unit/0.01ml Soln (100units/ml) SC SCH ×2 (16:27→20:30)
--- NOTE | 2019-06-08 16:53 | NUR ---
SAFEGUARD PRESSURE DEVICE After 20 minutes of manual pressure held, when attempting to remove pressure, pt began to bleed. Walt DIESEL SCOOP OPERATOR continues to hold manual pressure for another 25 minutes. Site assessed, no hematoma noted, ecchymosis present. Safeguard pressure device applied once bleeding stopped. Pulses palpable distally. No signs of bleeding, vitals stable, patient denies pain or discomfort at this time. Patient to be kept supine to allow further clotting. Will assess readiness for repositioning on next assessment.
--- NOTE | 2019-06-08 17:00 | NUR ---
TEMPERATURE Patient core temp 99.7, cooling measures initiated.
--- NOTE | 2019-06-08 17:00 | NUR ---
CRISTIANE HOSE REMOVED
--- NOTE | 2019-06-08 18:29 | NUR ---
INCISIONAL CARE Chest tube incision sites cleansed with chlorhexidine swabs. Petroleum gauze and 4x4 gauze applied and secured with tape. Left medial endoscopic site cleansed. Patient tolerated well.
[2019-06-08 18:41] LABS: Hematocrit 26.4 % (36.0-46.0); Hemoglobin 9.1 g/dL (12.2-16.2); Mean Corpuscular Hemoglobin 30.8 pg (28.0-32.0); Mean Corpuscular Hgb Conc. 34.4 g/dL (32.0-36.0); Mean Corpuscular Volume 89.6 fL (80.0-100.0); Platelet Count (auto) 98 10^3/uL (140-450); Red Blood Cells 2.95 10^6/uL (4.0-5.20); Red Cell Distribution Width 14.1 % (11.8-14.3); White Blood Cell 12.9 10^3/uL (4.4-10.8)
[2019-06-08 18:46] LABS: Basophils % (manual) 0 (0.0-2.0); Blast Cells 0; Metamyelocytes % 0; Myelocytes % 0; Promyelocytes % 0; Reactive Lymphocytes 0
[2019-06-08 18:57] LABS: BUN/Creatinine Ratio 24.3; Calcium 8.4 mg/dL (8.5-10.1); Potassium 4.7 mmol/L (3.5-5.1)
[2019-06-08 19:00] LABS: Total Protein 5.8 g/dL (6.4-8.2)
--- NOTE | 2019-06-08 19:00 | NUR ---
OUTPUTS URINE:1700CC CHEST TUBES MEDIASTINAL:51 L/R PLEURAL: 80
[2019-06-08 19:25] LABS: Band Neutrophils % (manual) 1; Eosinophils % (manual) 1 (0-7); Lymphocytes % (manual) 11 (10.0-50.0); Monocytes % (manual) 11 (0-12)
--- NOTE | 2019-06-08 19:30 | NUR ---
REPORT Report given to Chhaya LAMAR, care endorsed.
--- NOTE | 2019-06-08 19:30 | NUR ---
DR STRICKLAND CALLED UNIT UPDATED DR STRICKLAND REGARDING PRELIMINARY SPUTUM CULTURES. CURRENT VITAL SIGNS, GTT'S AND CURRENT URINE OUTPUT. ORDERS RECEIVED.
--- NOTE | 2019-06-08 20:00 | NUR ---
OPEN ASSUMED CARE OF FEMALE PT ORALLY INTUBATED. PT SEDATED ON DIPRIVAN GTT 7 MCG/KG/MIN, AND FENTANYL GTT 50 MCG/HR. PT ABLE TO OPEN EYES TO NAME BEING CALLED, ABLE TO FOLLOW COMMANDS. ABLE TO NOD HEAD YES OR NO TO SIMPLE QUESTIONS. PT AFIB ON CERTIFIED MEDICAL DOSIMETRIST. ON AMIODARONE GTT 0.5 MG/MIN, LEVOPHED GTT 5 MCG/MIN, MILRINONE GTT DECREASED TO 7.13 ML/HR PER MD ORDER. R IJ SWAN DRISS CATH IN PLACE APPROX 56 CM AT THE HUB OF THE DUAL LUMEN CORDIS. L RADIAL KIMBERLY PROVIDING BP READINGS. ALL WAVE FORMS WNL. L. GROIN ARTERIAL SHEATH OBSERED. SAFEGUARD OBSERVED TO R. GROIN. ELTON GROIN WITH BRUISING. BOTH AREAS SOFTE. PEDAL PULSES WEAK/PALPABLE. PT WITH STERNAL INCISION WITH CDI AQUACEL DRESSING. AV EPICARDIAL WIRES OBSERVED. CHANGED EXTERNAL GENERATOR TO VVI PT IS IN AFIB. RATE SET TO 60 BPM. PT NOT PACING RATE IS 1TEENS. CHEST TUBES X [address] L&R PLEURAL AND MEDIASTINAL DRAINING SMALL AMOUNT OF SEROUS SANGUINEOUS DRAINAGE INTO ATRIUM COLLECTION UNITS X 2 SECURED TO FLOOR. NO CREPITUS PALPATED/ NO AIR LEAK OBSERVED. L. GROIN ENDOSCOPIC INCISION WELL APPROXIMATED. OPEN TO AIR. L. MEDIAL KNEE ENDOSCOPIC INCISION WELL APPROXIMATED. OPEN TO AIR. SML CIRCULAR NON BLANCHING BRUISE OBSERVED TO R. HEEL. EXTREMITY OFFLOADED WITH PILLOWS. OPTIFOAM GENTLE SACRAL DRESSING IN PLACE PREVENTATIVE. BONY PROMINENCES OFFLOADED WITH PILLOWS. PT SHAKES HEAD NO WHEN ASKED IF IN PAIN. PT IN FULL VIEW OF RN WILL CONTINUE TO MONITOR.
--- NOTE | 2019-06-08 20:10 | NUR ---
SPOUSE CALLED UNIT PT CALLED UNIT FOR UPDATE ON PT CONDITION. AFTER PASSWORD FOR PHONE GIVEN, UPDATE PROVIDED. PLAN OF CARE DISCUSSED. ALL QUESTIONS AND CONCERNS ADDRESSED.
[2019-06-08] MEDS ORDERED: PIPERACILLIN-TAZO 4.5GM 100 ML IV SCH (20:30)
[2019-06-08] MEDS: PHENYLEPHRINE IV 250 ML IV SCH (20:47)
--- NOTE | 2019-06-08 21:00 | NUR ---
SAFE-GUARD 5 ML AIR REMOVED FROM R. GROIN SAFEGUARD. NO BLEEDING OBSERVED.
[2019-06-08] MEDS ORDERED: FLUCONAZOLE 200MG/100ML 100 ML IV ONE (22:00)
--- NOTE | 2019-06-08 22:00 | NUR ---
SAFE-GUARD 10 ML AIR REMOVED FROM SAFE-GUARD. NO BLEEDING OBSERVED.
--- NOTE | 2019-06-08 23:30 | NUR ---
SAFE GUARD NO BLEEDING OBSERVED TO R. GROIN. 10 ML AIR REMOVED FROM SAFE GUARD. WILL CONTINUE TO MONITOR FOR BLEEDING.
[2019-06-09] VITALS (99 sets, daily range): BP systolic 34–176; BP diastolic 16–83
[2019-06-09] MEDS: InsuLIN REG 1unit/0.01ml Soln (100units/ml) SC SCH ×6 (00:07→20:11)
[2019-06-09] MEDS: ACCU-CHEK COMFORT CURVE STRIP VI SCH ×6 (00:07→20:09)
[2019-06-09] MEDS: MILRINONE 20MG/100ML 100 ML IV SCH ×2 (02:41→11:40)
[2019-06-09] MEDS: PIPERACILLIN-TAZO 4.5GM 100 ML IV SCH ×3 (02:51→17:53)
[2019-06-09] MEDS: PROPOFOL 100 ML IV SCH (02:59)
[2019-06-09] MEDS: NICARDIPINE 25MG/250ML BAG KIT 250 ML IV SCH ×4 (03:47→17:58)
--- NOTE | 2019-06-09 04:00 | NUR ---
Patient bathe/linen change/ INCISION CARE Patient given complete bath. Skin integrity assessed for any changes. Linens changed. Patient repositioned for comfort. CHEST TUBE DRESSINGS REMOVED. CLEANSED INSERTION SITES WITH CHLORHEXIDINE PER MD PREFERENCE. PETROLEUM GAUZE PLACED, STERILE 4X4'S, COVERED WITH MEDIPORE TAPE. ENDOSCOPIC INCISIONS TO L. GROIN, AND L. MEDIAL KNEE CLEANSED ABOVE. LEFT OPEN TO AIR.
[2019-06-09 06:08] LABS: Hematocrit 28.9 % (36.0-46.0); Mean Corpuscular Hemoglobin 31.2 pg (28.0-32.0); Mean Corpuscular Hgb Conc. 34.5 g/dL (32.0-36.0); Mean Corpuscular Volume 90.4 fL (80.0-100.0); Platelet Count (auto) 88 10^3/uL (140-450); White Blood Cell 13.8 10^3/uL (4.4-10.8)
[2019-06-09] MEDS: SODIUM CHLORIDE 0.9% 1,000 ML IV SCH (06:15)
[2019-06-09 06:28] LABS: BUN/Creatinine Ratio 29.4; Magnesium 2.1 mg/dL (1.6-2.6); Potassium 4.6 mmol/L (3.5-5.1)
[2019-06-09] MEDS: ACETYLCYSTEINE 10 %(100MG/ML) SOL 4ML NEB SCH ×2 (06:29→21:56)
[2019-06-09] MEDS: IPRATROPIUM BROM 0.5 MG/2.5ML INH SOL NEB SCH ×4 (06:29→21:57)
[2019-06-09] MEDS: D5W/SOD CHLO 0.9% 1,000 ML IV SCH (06:30)
[2019-06-09 06:44] LABS: INR 1.06 (0.9-1.15); Partial Thromboplastin Time 31.3 sec (23.64-32.05)
--- NOTE | 2019-06-09 07:00 | NUR ---
OPEN REPORT RECEIVED FROM ORACLE R12 DEVELOPER NURSE. PT RESTING IN BED. INTUBATED AND LIGHTLY SEDATED. R IJ SWAN DRISS CATH IN PLACE APPROX 56 CM AT THE HUB OF THE DUAL LUMEN CORDIS. L RADIAL KIMBERLY PROVIDING BP READINGS. ALL WAVE FORMS WNL. L. GROIN ARTERIAL SHEATH OBSERVED. STERILE GAUZE WITH TEGADERM TO RIGHT GROIN. ELTON GROIN WITH BRUISING. PEDAL PULSES WEAK/PALPABLE. PT WITH STERNAL INCISION WITH CDI AQUACEL DRESSING. AV EPICARDIAL WIRES ISOLATED. PT NOT PACING AT THIS TIME, PT HAS OWN INTRINSIC RATE IN 110'S-120'S. . CHEST TUBES X [address] L&R PLEURAL AND MEDIASTINAL DRAINING SMALL AMOUNT OF SEROUS SANGUINEOUS DRAINAGE INTO ATRIUM COLLECTION UNITS X 2 SECURED TO FLOOR. NO CREPITUS PALPATED/ NO AIR LEAK OBSERVED. L. GROIN ENDOSCOPIC INCISION WELL APPROXIMATED. OPEN TO AIR. L. MEDIAL KNEE ENDOSCOPIC INCISION WELL APPROXIMATED. WEN TO GRAVITY DRAINING CLEAR, YELLOW URINE. ZEROED ALL LINES.
--- NOTE | 2019-06-09 07:15 | NUR ---
MD STRICKLAND CALLED UNIT DR STRICKLAND CALL UNIT. UPDATED REGARDING CURRENT GTT'S, CURRENT URINE OUTPUT AND CURRENT C.I. ORDER RECEIVED TO DECREASE LASIX GTT TO 4 MG/HR. ORDER CARRIED OUT.
[2019-06-09 07:28] LABS: Basophils % (manual) 0 (0.0-2.0); Blast Cells 0; Eosinophils % (manual) 0 (0-7); Metamyelocytes % 0; Myelocytes % 0; Promyelocytes % 0; Reactive Lymphocytes 0
[2019-06-09 07:30] LABS: Band Neutrophils % (manual) 5; Lymphocytes % (manual) 19 (10.0-50.0); Monocytes % (manual) 12 (0-12)
--- NOTE | 2019-06-09 08:50 | NUR ---
D/C arterial sheath PER MD DISCONTINUE LEFT FEMORAL ARTERIAL SHEATH BY COATING MACHINE FEEDER NURSE. APPLIED PRESSURE FOR 10 MINUTES WITH DSTAT, STERILE GAUZE, AND TEGADERM. NO HEMATOMA OR BLEEDING NOTED. WILL CONTINUE TO MONITOR.
--- NOTE | 2019-06-09 09:04 | NUR ---
AT BEDSIDE DR. MCKENZIE AT BEDSIDE TO ASSESS PATIENT AND PLAN OF CARE. MD AWARE OF ELEVATED BLOOD SUGARS. PER MD ADMINISTER ONE TIME DOSE 10 UNITS OF LANTUS SUBQ. PER MD IF BLOOD SUGAR IS < 150, SWITCH IV FLUID TO D5W 0.9NS AT SAME RATE. PER MD START PATIENT ON VANCOMYCIN PER PHARMACY. ALL ORDERS NOTED IN CHART.
[2019-06-09] MEDS ORDERED: VANCOMYCIN PER PHARMACY 0 MG IV SCH (09:15)
[2019-06-09] MEDS ORDERED: INSULIN LANTUS (GLARGINE) 1 /0.01ml (100units/ml) SC ONE (09:15)
[2019-06-09] MEDS: PANTOPRAZOLE 40 MG/10 ML VIAL INJ IV SCH (09:34)
[2019-06-09] MEDS: DIGOXIN (250MCG/ML) 2 ML AMPULE IV SCH (09:34)
[2019-06-09] MEDS: FLUCONAZOLE 200MG/100ML 100 ML IV SCH ×2 (09:38→10:49)
[2019-06-09] MEDS: CHLORHEXIDINE 0.12% ORAL rinse 473ML MT SCH ×2 (10:00→22:37)
--- NOTE | 2019-06-09 10:35 | NUR ---
MD VIEIRA SPOKE WITH DR. STRICKLAND VIA TELEPHONE. REVIEWED ABG RESULTS FROM CPAP, VITAL SIGNS, AND MEDICATIONS. PER MD DECREASE LASIX DRIP TO 3MG/HR. D/C SWAN ONCE EXTUBATED, AND CALL PULMONARY FOR CPAP RESULTS.
--- NOTE | 2019-06-09 10:36 | NUR ---
PAGED PAGED DR. CONKLIN FOR CPAP/ABG RESULTS. AWAITING RETURN CALL.
[2019-06-09] MEDS ORDERED: FUROSEMIDE INJECTION 250 MG in D5W 5% 225 ML IV SCH ×2 (11:00→15:30)
--- NOTE | 2019-06-09 11:08 | NUR ---
PAGED PAGED DR. CONKLIN FOR CPAP/ABG RESULTS. AWAITING RETURN CALL.
--- NOTE | 2019-06-09 11:13 | NUR ---
MD CALL BACK DR. CONKLIN RETURNED CALL. MD GIVEN ABG RESULTS FROM CPAP. PER MD EXTUBATE PT AND PLACE ON COOL MIST MASK. BIPAP 08/13 PRN.
--- NOTE | 2019-06-09 11:20 | NUR ---
EXTUBATION EXTUBATED PT PER MD ORDER. PT PLACED ON 40% COOL MIST MASK. SATS 96%. NO NOTED STRIDOR OR RESPIRATORY DISTRESS.
--- NOTE | 2019-06-09 12:13 | NUR ---
PAGED NOTIFIED OF LOW CALCIUM LEVEL, ORDERS OBTAINED FOR REPLACEMENT.
[2019-06-09] MEDS ORDERED: CALCIUM GLUC 4.65meq/50ml D5AE 50 ML IV ONE (12:30)
[2019-06-09] MEDS ORDERED: VANCOMYCIN 1,250 MG in D5W 5% 250 ML IV ONE (13:00)
--- NOTE | 2019-06-09 13:15 | NUR ---
DISCONTINUED FELICITA NAQVI PER MD ORDER. PATIENT TOLERATED WELL.
--- NOTE | 2019-06-09 14:30 | NUR ---
PATIENT PLACED ON 2 LITERS NASAL CANULA. SATURATIONS 98%. WILL CONTINUE TO MONITOR.
--- NOTE | 2019-06-09 14:45 | NUR ---
PATIENT GIVEN ICE CHIPS AND WATER TOLERATED WELL. NO COUGHING AND CHOKING NOTED.
--- NOTE | 2019-06-09 15:14 | NUR ---
DR STRICKLAND AT BEDSIDE TO ASSESS PATIENT TO DISCUSS PLAN OF CARE. PER DM DECREASE LASIX DRIP TO 2MG/HR. CONTINUE LEVOPHED DRIP THROUGHOUT THE NIGHT. PER MD PATIENT TO REMAIN NPO THROUGHOUT TONIGHT AND OBTAIN SWALLOW EVALUATION.
[2019-06-09] MEDS: VANCOMYCIN 1,250 MG in D5W 5% 250 ML IV SCH (16:19)
--- NOTE | 2019-06-09 17:22 | NUR ---
SWALLOW EVALUATED. PATIENT HAS OWN TEETH, SOME MISSING. PRESENT FOR EVALUATION. PATIENT ABLE TO TOLERATE PUREE DIET TEXTURE WITH THIN LIQUIDS WITH NO OVERT SIGNS OR SYMPTOMS OF ASPIRATION. NURSING NOTIFIED.
[2019-06-09] MEDS: AMIODARONE HCL 900 MG in DEXTROSE 500 ML IV SCH (18:49)
[2019-06-09] MEDS ORDERED: MORPHINE SULF INJ 2 MG/ML SYRINGE 1ML IV PRN ×2 (19:30→19:45)
--- NOTE | 2019-06-09 19:36 | NUR ---
UPDATED DR STRICKLAND ON PATIENT STATUS AND RESPONSE TO PAIN MEDICATIONS WELL SWALLOW EVALUATION. PER MD PATIENT OK TO EAT LIGHTLY AND STOP FENTANYL IVP AND CONTINUE MORPHINE 2 MG IVP NOW Q3HPRN. ALL ORDERS NOTED IN CHART.
--- NOTE | 2019-06-09 19:40 | NUR ---
OPEN NOTES Received patient from WILLARD Mcallister. Patient had CABG done 06/06. Extubated today. Patient is awake and oriented, grasp at both hands were good but legs still weak. Nasal cannula at 2L/min, saturating 93-95%. Lung sounds coarse upper, diminished at bases. Patient able to cough out phlegm. Chest tubes x 3 - dressing dry and intact, no air leak noted, both with serosanguineous drainage minimal, no clots seen ECG sinus rhythm, BP stable with IV Levophed at 1.5mcg/min. Had an episode of Atrial fibrillation this morning. Patient is on IV Amiodarone at 0.5mg/min (16.66 ml/hr) Patient can have puree diet but has no appetite yet, only took 3 teaspoon ice cream and some ice chips. Bowel sounds hypoactive still. No BM yet. Ramos catheter draining to yellowish output with hourly monitoring. on IV Lasix drip at 2mg/hr. Skin assessed: Sternotomy with Aquacel dressing intact, Left groin previous sheath site - covered with gauze dressing-dry and intact, right groin excoriation noted, right pubis area with excoriation too. Left lateral knee are - harvest site CDI, open to air. will continue to monitor
--- NOTE | 2019-06-09 20:00 | NUR ---
CRISTIANE STOCKINGS CRISTIANE STOCKINGS REMOVED FOR AWHILE BOTH HEELS OFFLOADED WITH PILLOWS
--- NOTE | 2019-06-09 20:10 | NUR ---
INCENTIVE SPIROMETRY Patient instructed on how to use Incentive spirometry Patient was able to do <500mls x 10 times will encourage patient to do it when awake
[2019-06-09] MEDS: SODIUM CHLORIDE 0.9% 500 ML IV SCH (20:19)
[2019-06-09] MEDS: NOREPINEPHRINE 8 MG/250ML KIT 250 ML IV SCH (20:47)
--- NOTE | 2019-06-09 20:50 | NUR ---
RIGHT GROIN RIGHT GROIN EXCORIATION - CLEANED, PICTURES TAKEN THEN COVERED WITH OPTIFOAM GENTLE WILL CONTINUE TO MONITOR
--- NOTE | 2019-06-09 22:00 | NUR ---
RIGHT HAND PERIPHERAL LINE DUE FOR CHANGING ATTEMPTED TO INSERT A NEW ONE X 2 BUT FAILED
--- NOTE | 2019-06-09 22:30 | NUR ---
ORAL CARE DONE
[2019-06-10] VITALS (74 sets, daily range): BP systolic 79–196; BP diastolic 49–127
--- NOTE | 2019-06-10 | NUR ---
ROUNDS Patient is resting, eyes closed. VS stable. No sign and symptom of pain noted
[2019-06-10] MEDS: InsuLIN REG 1unit/0.01ml Soln (100units/ml) SC SCH ×6 (00:04→19:59)
[2019-06-10] MEDS: PIPERACILLIN-TAZO 4.5GM 100 ML IV SCH ×3 (01:34→17:45)
--- NOTE | 2019-06-10 02:00 | NUR ---
CRISTIANE DUMONT RE-APPLIED
[2019-06-10] MEDS: D5W/SOD CHLO 0.9% 1,000 ML IV SCH ×2 (02:30→22:30)
[2019-06-10] MEDS: SODIUM CHLORIDE 0.9% 1,000 ML IV SCH ×2 (03:36→10:33)
[2019-06-10] MEDS: ACCU-CHEK COMFORT CURVE STRIP VI SCH ×7 (03:46→23:59)
[2019-06-10 04:25] LABS: Basophils # (auto) 0.1 uL; Basophils % (auto) 0.4 % (0.0-2.0); Eosinophils # (auto) 0.2 uL; Eosinophils % (auto) 1.5 % (0.0-7.0); Hematocrit 30.4 % (36.0-46.0); Hemoglobin 10.3 g/dL (12.2-16.2); Lymphocytes # (auto) 1.8 uL; Lymphocytes % (auto) 14.2 % (10.0-50.0); Mean Corpuscular Hemoglobin 30.9 pg (28.0-32.0); Mean Corpuscular Hgb Conc. 33.9 g/dL (32.0-36.0); Mean Corpuscular Volume 91.2 fL (80.0-100.0); Monocytes % (auto) 7.6 % (0.0-12.0); Neutrophils # (auto) 9.6 uL; Neutrophils % (auto) 76.3 % (37.0-80.0); Nucleated Red Blood Cells % 1.7 %; Platelet Count (auto) 69 10^3/uL (140-450); Red Blood Cells 3.34 10^6/uL (4.0-5.20); Red Cell Distribution Width 13.9 % (11.8-14.3); White Blood Cell 12.6 10^3/uL (4.4-10.8)
[2019-06-10 04:33] LABS: INR 1.07 (0.9-1.15)
[2019-06-10 04:39] LABS: Albumin 3.4 g/dL (3.4-5.0); Calcium 7.9 mg/dL (8.5-10.1); Potassium 3.5 mmol/L (3.5-5.1)
[2019-06-10 04:42] LABS: BUN/Creatinine Ratio 33.8; Bilirubin, Total 1.5 mg/dL (0.2-1.0); Total Protein 5.6 g/dL (6.4-8.2)
--- NOTE | 2019-06-10 05:00 | NUR ---
CHEST TUBE DRESSING CHANGED/HYGIENE SITE CLEANED WITH CHG SWABS SITE COVERED WITH PETROLEUM GAUZE AND STERILE GAUZE AND MEDIPORE TAPE CLEANED PATIENT LINENS CHANGED REPOSITIONED
--- NOTE | 2019-06-10 05:30 | NUR ---
PAIN Patient complains of back pain / will medicate
--- NOTE | 2019-06-10 05:36 | NUR ---
output as of 0500hrs urine = 1660 mls chest tube = 80mls
[2019-06-10] MEDS: IPRATROPIUM BROM 0.5 MG/2.5ML INH SOL NEB SCH ×5 (06:10→22:26)
[2019-06-10] MEDS: ACETYLCYSTEINE 10 %(100MG/ML) SOL 4ML NEB SCH ×3 (06:10→22:26)
[2019-06-10] MEDS: POTASSIUM CHL 20MEQ/100ML 100 ML IV PRN ×2 (06:26→08:51)
--- NOTE | 2019-06-10 07:00 | NUR ---
GRAND TOTAL BALANCE GRAND TOTAL BALANCE -1793ML
--- NOTE | 2019-06-10 07:05 | NUR ---
REPORT REPORT GIVEN TO WILLARD ELIZONDO
--- NOTE | 2019-06-10 07:05 | NUR ---
REPORT RECEIVED FROM SHEET HEATER HELPER NURSE. PATIENT RESTING IN BED AT THIS TIME. RESPIRATIONS EVEN AND UNLABORED. NO SIGNS OF ACUTE DISTRESS NOTED. CALL LIGHT IN REACH, BED IN LOW POSITION. WILL CONTINUE TO MONITOR.
--- NOTE | 2019-06-10 08:30 | NUR ---
INSTRUCTED PATIENT ON INCENTIVE SPIROMETER. RETURNED DEMONSTRATION PATIENT ABLE TO COMPLETE 500ML ON INCENTIVE SPIROMETER.
--- NOTE | 2019-06-10 09:05 | NUR ---
DC A LINE DISCONTINUED ARTERIAL LINE TO LEFT RADIAL. APPLIED PRESSURE FOR 5 MINUTES. NO NOTED BLEEDING, APPLIED STERILE GAUZE AND TEGADERM. WILL CONTINUE TO MONITOR.
--- NOTE | 2019-06-10 09:54 | NUR ---
DR YEE AT BEDSIDE TO ASSESS PATIENT AND DISCUSS PLAN OF CARE. MD INFORMED OF LAB LEVELS. ALL ORDERS NOTED IN CHART.
[2019-06-10] MEDS: CHLORHEXIDINE 0.12% ORAL rinse 473ML MT SCH ×2 (10:00→22:16)
[2019-06-10] MEDS ORDERED: CALCIUM GLUC 4.65meq/50ml D5AE 50 ML IV ONE (10:00)
--- NOTE | 2019-06-10 10:20 | NUR ---
PAGED DR LOPEZ PER DR STRICKLAND TO CLARIFY AMIODARONE DRIP. AWAITING CALL BACK.
--- NOTE | 2019-06-10 10:23 | NUR ---
SPOKE TO DR LOPEZ TO INFORM PATIENT HAS BEEN IN SR 70-80'S ON AMIODARONE DRIP. PER MD PATIENT CAN BE PLACED ON AMIODARONE 200MG PO BID. ALL ORDERS NOTED IN CHART.
--- NOTE | 2019-06-10 10:28 | NUR ---
DR STRICKLAND AT BEDSIDE TO ASSESS PATIENT AND DISCUSS PLAN OF CARE. MD ADJUSTED MEDICATIONS NOTED IN CHART. PER MD TITRATE LEVOPHED OFF, OK WITH SYSTOLIC PRESSURES IN 80'S LONG AT PATIENT HAS GOOD URINE OUTPUT 30ML/HR OR GREATER AND NOT SYMPTOMATIC. ALL ORDERS NOTED IN CHART.
[2019-06-10] MEDS ORDERED: ALBUMIN 25% 100 ML IV ONE (10:30)
[2019-06-10] MEDS ORDERED: ASCORBIC ACID 500 MG TAB PO ONE (10:30)
[2019-06-10] MEDS ORDERED: ASPirin 81 mg TAB PO ONE (10:30)
[2019-06-10] MEDS: DIGOXIN (250MCG/ML) 2 ML AMPULE IV SCH (10:31)
[2019-06-10] MEDS: PANTOPRAZOLE 40 MG/10 ML VIAL INJ IV SCH (10:31)
[2019-06-10] MEDS: FLUCONAZOLE 200MG/100ML 100 ML IV SCH ×2 (10:32→12:28)
[2019-06-10] MEDS ORDERED: AMIODARONE HCL 200 MG TAB ONE (10:43)
[2019-06-10] MEDS ORDERED: ALBUTEROL SULF 2.5 MG/0.5ML(0.5%) NEB SOLN NEB ONE (11:00)
--- NOTE | 2019-06-10 11:00 | NUR ---
DR CONKLIN AT BEDSIDE TO ASSESS PATIENT AND DISCUSS PLAN OF CARE. NO NEW ORDERS AT THIS TIME.
[2019-06-10] MEDS: MAGNESIUM SULFATE 1GM/100ML 100 ML IV SCH ×2 (11:02→12:27)
[2019-06-10] MEDS ORDERED: ALBUTEROL SULF 2.5 MG/0.5ML(0.5%) NEB SOLN ONE (11:04)
--- NOTE | 2019-06-10 12:31 | NUR ---
DR LOPEZ AT BEDSIDE TO ASSESS PATIENT AND DISCUSS PLAN OF CARE. NO NEW ORDERS AT THIS TIME.
--- NOTE | 2019-06-10 13:45 | NUR ---
MIDLINE PICC LINE NURSE AT BEDSIDE AND PLACED 18 GAUGE MIDLINE
--- NOTE | 2019-06-10 14:01 | NUR ---
Midline Placement: Patient educated on need for midline placement. All risks and benefits explained and all questions and concerns addresses prior to procedure. 18 g 10 cm midline inserted via LT BASILIC vein using Ultrasound. Sterile technique utilized. Blood return obtained from 1 lumen and flushed easily with NS using proper technique. Midline secured with saline lock; biodisc and occlusive dressing applied. Primary RN CARO notified. Midline lOT # [id number].
--- NOTE | 2019-06-10 14:16 | NUR ---
Nutrition Follow-up Notes Wt.: 107.1 kg today. Pt's successfully extubated yesterday, on oxygen via nasal cannula with family member at bedside talking to [facility] personnel when rounded this morning. Pt's no signs of distress noted earlier, had swallow eval by ST, currently on Pureed diet, noted with inadequate PO intake aeb <25% ave. consumed meals (x2) since yesterday d/t pt refused, per nursing. Est. Needs: 1750 kcal to 1850 kcal (18-20 kcal/kgBW), 78 gms to 101 gms pro (1.0-1.3 gms/kgIBW: 78 kg). Will continue to monitor pertinent labs and reassess nutrient need prn Labs: Gluc 225 H, Cl 96 L, CO2 34 H, BUN 25 H, Ca 7.9 L, Tot harsh 1.5 H, Tpro 5.6 L; HbA1c 13.7 H, Skin: Eh scale 13, mod risk, anterior medial chest incision dry and intact, right heel DTI per terminal manager. Pls refer to latest canal boat operator's notes for further details re: tx plans. GI: Pt's no bowel activity since 06/02/19 per terminal manager. PES: Increased nutrient needs r/t acute/chronic medical condition aeb s/p heart surgery, intubated, sedated, NPO. Altered nutrition related lab values r/t current/chronic medical condition aeb hyperglycemia, hyponatremia, elev. BUN, Trop I. HbA1c, hypocalcemia Obesity r/t food intake more than body requirement aeb 165% IBW, BMI 34.8 kg/m2 and increased body adiposity Will continue to monitor PO intake, skin status, pertinent labs and weight trend. F/u in 3 to 5 days. Rec.: 1.) Consider Pureed Consistent Standard Carb: 60 gms/meal, Cardiac: 2 gms Na, Low Chol, Low Fat diet. 2.) Consider daily MVI with minerals and Asc acid 500 mgs BID. 3.) Continue close supervision and feeding assistance prn during meals. 4.) If pt's PO intake remains inadequate (<75%), consider Glucerna Shakes 1 carton BID. 5.) Refer pt to CDE/RD for further nutrition education and weight monitoring upon discharge. 6.) Continue current plan of care.
--- NOTE | 2019-06-10 14:22 | NUR ---
PATIENT ASSISTED UP TO CHAIR BY PHYSICAL THERAPY. PATIENT TOLERATED WELL. WILL CONTINUE TO MONITOR.
[2019-06-10] MEDS: HYDROcodone-ACET 5/325MG TAB PO PRN ×2 (14:30→21:19)
[2019-06-10] MEDS: ALBUTEROL SULF 2.5 MG/0.5ML(0.5%) NEB SOLN NEB SCH ×3 (14:40→22:26)
--- NOTE | 2019-06-10 15:35 | NUR ---
PATIENT ASSISTED BACK TO BED BY PHYSICAL THERAPY. PATIENT TOLERATED WELL, BUT WAS TOTAL ASSIST.
[2019-06-10] MEDS: VANCOMYCIN 1,250 MG in D5W 5% 250 ML IV SCH (15:53)
--- NOTE | 2019-06-10 19:30 | NUR ---
OPEN NOTES Received patient from WILLARD Mcallister. Patient is awake and oriented, still weak but was able to move more today. Nasal cannula at 3L/min, saturating 93-95%. Lung sounds coarse upper, diminished at bases. Patient able to cough out phlegm. Chest tubes x 3 - dressing dry and intact, no air leak noted, both with serosanguineous drainage minimal, no clots seen ECG on SR HR 90/min, BP stable Surgical incision site : sternotomy covered with Aquacel, harvest site-open to air Right lower leg slightly mottled-pulses palpable but will check also by Doppler, Left leg palpable pulses Both legs cold to touch Ramos catheter draining to yellowish output Placed on high fowlers position. Encouraged to deep breathing exercises and ROM exercises. Patient on max assist according to day shift RN - will wait for PT in AM for sitting out of chair to prevent falls
--- NOTE | 2019-06-10 19:30 | NUR ---
RIGHT LEG Right leg noted to have some mottling at mid calf area running to the back and towards the foot Mottled skin is more compared to yesterday night. Day shift RN agreed too. Pulse palpable at dorsalis and posterior tibia and Doppler was used to double check Popliteal pulses felt too Both legs cold to touch - socks applied Charge Nurse Theodore notified, will monitor
[2019-06-10] MEDS: FUROSEMIDE 20 MG TAB PO SCH (19:37)
--- NOTE | 2019-06-10 19:45 | NUR ---
DINNER PATIENT STILL DOES NOT HAVE APPETITE BUT ENCOURAGE TO TAKE SOME OF THE SOUP AND JUICE
[2019-06-10] MEDS: SODIUM CHLORIDE 0.9% 500 ML IV SCH (20:38)
[2019-06-10] MEDS: NOREPINEPHRINE 8 MG/250ML KIT 250 ML IV SCH (20:47)
[2019-06-10] MEDS: POTASSIUM CHL 20 Meq TABLET PO SCH ×3 (22:00→22:12)
[2019-06-10] MEDS: AMIODARONE HCL 200 MG TAB PO SCH (22:05)
--- NOTE | 2019-06-10 22:22 | NUR ---
ORAL POTASSIUM TAB PATIENT UNABLE TO SWALLOW ORAL POTASSIUM TABLET TABLET NOT ADVISABLE TO BE CRUSHED WILL SWITCH TO LIQUID FORM Addendum: 06/10/19 at 2227 by Smiley Llanes RN PATIENT TRIED BUT SPIT IT OUT
[2019-06-10] MEDS: POTASSIUM EFFERVESENT TAB 25 MEQ GT SCH (22:59)
--- NOTE | 2019-06-10 23:00 | NUR ---
DISCONTINUED CORDIS RIGHT IJ CORDIS DISCONTINUED ORDERED PRESSURE APPLIED UNTIL BLEEDING STOPPED COVERED WITH DRESSING
[2019-06-11] VITALS (31 sets, daily range): BP systolic 81–138; BP diastolic 50–74
--- NOTE | 2019-06-11 00:14 | NUR ---
ATRIAL FIBRILLATION Patient's rhythm went back to Atrial Fibrillation HR 90-115/min BP 111/59 mmHg Patient has been just discontinued on IV Amiodarone this morning 12 lead EKG done
[2019-06-11] MEDS: InsuLIN REG 1unit/0.01ml Soln (100units/ml) SC SCH ×7 (00:45→23:55)
--- NOTE | 2019-06-11 00:45 | NUR ---
PAGEAmanda CARDIO Talked to Dr. Purdy over the phone and informed him that patient's rhythm went back to Atrial Fibrillation HR 90-115/min. BP stable. Asked if needed to re-start IV Amiodarone drip - he said no but wants to start Lovenox. Informed him that patient has bleeding episodes during operation. He noted and give Lovenox 0.5mg/kg. Telephone order received : SC Lovenox 50mg BID
[2019-06-11] MEDS ORDERED: ENOXAPARIN SOD 60 MG/0.6 ML SYRINGE SC SCH (01:00)
[2019-06-11] MEDS: PIPERACILLIN-TAZO 4.5GM 100 ML IV SCH ×3 (01:32→18:43)
--- NOTE | 2019-06-11 01:42 | NUR ---
AYDE TALKED TO PHARMACIST OVER THE PHONE REGARDING THE LOVENOX ORDER. ORDER WAS PLACED BECAUSE PATIENT WAS IN AFIB. INFORMED HER THAT MD ORDERS 0.5MG/KG BECAUSE I TOLD HIM ABOUT THE BLEEDING EPISODE DURING THE SURGERY LAST 06/06 PLATELETS ARE LOW TOO. SHE RECOMMENDS TO CLARIFY THE ORDER. TOLD HER THAT I WILL NOT GIVE THE MEDICATION AND WILL ASK SURGEON FIRST Addendum: 06/11/19 at 0147 by Smiley Llanes RN PATIENT IS ON CRISTIANE STOCKINGS NOW, AWAKE AND ALERT, MOVING ALL LIMBS
[2019-06-11] MEDS: HYDROcodone-ACET 5/325MG TAB PO PRN ×3 (02:20→21:39)
[2019-06-11] MEDS: ACCU-CHEK COMFORT CURVE STRIP VI SCH ×6 (04:38→23:55)
[2019-06-11 04:44] LABS: Hematocrit 29.5 % (36.0-46.0); Hemoglobin 10.2 g/dL (12.2-16.2); Mean Corpuscular Hemoglobin 31.7 pg (28.0-32.0); Mean Corpuscular Hgb Conc. 34.7 g/dL (32.0-36.0); Mean Corpuscular Volume 91.3 fL (80.0-100.0); Platelet Count (auto) 65 10^3/uL (140-450); Red Blood Cells 3.23 10^6/uL (4.0-5.20); Red Cell Distribution Width 14.1 % (11.8-14.3); White Blood Cell 10.8 10^3/uL (4.4-10.8)
[2019-06-11 04:56] LABS: Band Neutrophils % (manual) 0; Basophils % (manual) 0 (0.0-2.0); Blast Cells 0; Eosinophils % (manual) 0 (0-7); Metamyelocytes % 0; Myelocytes % 0; Promyelocytes % 0; Reactive Lymphocytes 0
--- NOTE | 2019-06-11 05:00 | NUR ---
HYGIENE Patient cleaned with CHG wipes. Linens changed. Skin assessed. CRISTIANE stockings removed. Repositioned.
[2019-06-11 05:05] LABS: Albumin 3.2 g/dL (3.4-5.0); Calcium 8.1 mg/dL (8.5-10.1); Potassium 4.4 mmol/L (3.5-5.1)
[2019-06-11 05:08] LABS: BUN/Creatinine Ratio 25.4; Bilirubin, Total 1.8 mg/dL (0.2-1.0); Total Protein 5.7 g/dL (6.4-8.2)
[2019-06-11 05:10] LABS: Magnesium 1.9 mg/dL (1.6-2.6); Phosphorus 2.9 mg/dL (2.5-4.90)
--- NOTE | 2019-06-11 05:30 | NUR ---
INCISIONAL CARE DONE CHEST TUBE DRESSING CHANGED CLEANED WITH CHG SWABS, COVERED WITH PETROLEUM GAUZE, STERILE GAUZE AND MEDIPORE TAPE PACER WIRES ISOLATED LEFT LATERAL KNEE - CLEANED WITH CHG SWAB, OPEN TO AIR
[2019-06-11 05:36] LABS: INR 1.11 (0.9-1.15); Partial Thromboplastin Time 27.3 sec (23.64-32.05)
--- NOTE | 2019-06-11 06:05 | NUR ---
RE-ASSESS Patient remained in Atrial Fibrillation HR 90-110/min BP stable Incentive spirometry done - up to 500mls chest tube output = 60mls urine output = 2000mls drinking good
[2019-06-11] MEDS: ACETYLCYSTEINE 10 %(100MG/ML) SOL 4ML NEB SCH ×3 (06:07→22:03)
[2019-06-11] MEDS: ALBUTEROL SULF 2.5 MG/0.5ML(0.5%) NEB SOLN NEB SCH ×5 (06:07→22:02)
[2019-06-11] MEDS: IPRATROPIUM BROM 0.5 MG/2.5ML INH SOL NEB SCH ×5 (06:07→22:03)
[2019-06-11 06:19] LABS: Lymphocytes % (manual) 13 (10.0-50.0); Monocytes % (manual) 11 (0-12)
--- NOTE | 2019-06-11 06:42 | NUR ---
CALLED MD Talked to Dr. Vigil and informed of the followin. rhythm went back to Atrial Fibrillation HR 90-110/min, BP 100-110mmHg 2. Cardiology was noted about Afib and ordered Lovenox but I did not administer it as platelets are low 3. magnesium 1.9, platelets 65 4. unable to swallow potassium tab switch to liquid form 25meq BID All noted. He said he will see patient later and deal with the rhythm later. He is ok switching potassium to liquid form 25meq Ordered to give 2g Magnesium and don't give Lovenox
[2019-06-11] MEDS: FUROSEMIDE 20 MG TAB PO SCH ×2 (06:53→17:45)
--- NOTE | 2019-06-11 07:30 | NUR ---
RECEIVED REPORT PATIENT LYING IN HOSPITAL BED, EYES CLOSED RESPIRATIONS EVEN AND UNLABORED, AWOKE TO VOICE AND STATES SHE IS VERY TIRED. PATIENT LOOKS FATIGUED. VITALS STABLE. CHEST TUBES X3 IN PRESENT, DRAINING TO ATRIUMS CONNECTED TO SUCTION. WEN PRESENT DRAINING CLEAR YELLOW URINE. BED IN LOW POSITION, CALL LIGHT WITHIN REACH AND INSTRUCTED TO CALL IF NEEDED. WITHIN VIEW OF NURSES STATION
[2019-06-11] MEDS: MAGNESIUM SULFATE 1GM/100ML 100 ML IV SCH ×2 (07:47→09:05)
[2019-06-11] MEDS: SODIUM CHLORIDE 0.9% 1,000 ML IV SCH (07:52)
--- NOTE | 2019-06-11 08:45 | NUR ---
PATIENTS CALLED, PROVIDED PASSWORD UPDATED ON STATUS THROUGHOUT THE NIGHT AND PLAN OF CARE
--- NOTE | 2019-06-11 09:11 | NUR ---
SPOKE WITH DR STRICKLAND NEW ORDERS RECEIVED
[2019-06-11] MEDS: PANTOPRAZOLE 40 MG/10 ML VIAL INJ IV SCH (10:00)
[2019-06-11] MEDS: CHLORHEXIDINE 0.12% ORAL rinse 473ML MT SCH ×2 (10:00→21:38)
--- NOTE | 2019-06-11 10:00 | NUR ---
PATIENT TO BEDSIDE CHAIR 2 PHYSICAL THERAPISTS ASSISTED PATIENT TO BEDSIDE CHAIR, MAX ASSIST. PATIENTS VITALS REMAINED STABLE. PATIENT STATED FELT SHORT OF BREATH AFTER TRANSFER BUT ONCE SETTLED FELT BETTER. CALL LIGHT WITHIN REACH, INSTRUCTED TO CALL IF NEEDED
[2019-06-11 10:16] LABS: INR 1.06 (0.9-1.15)
[2019-06-11] MEDS ORDERED: PANTOPRAZOLE 40 MG TAB PO ONE (10:18)
[2019-06-11] MEDS: FLUCONAZOLE 200MG/100ML 100 ML IV SCH ×2 (10:28→12:25)
[2019-06-11] MEDS: ASPirin 81 mg TAB PO SCH (10:28)
[2019-06-11] MEDS: ASCORBIC ACID 500 MG TAB PO SCH (10:28)
[2019-06-11] MEDS: DIGOXIN (250MCG/ML) 2 ML AMPULE IV SCH (10:28)
[2019-06-11] MEDS: AMIODARONE HCL 200 MG TAB PO SCH ×2 (10:28→21:39)
[2019-06-11] MEDS: POTASSIUM EFFERVESENT TAB 25 MEQ GT SCH ×2 (10:30→21:39)
[2019-06-11] MEDS ORDERED: ALBUMIN 25% 100 ML IV ONE (12:00)
--- NOTE | 2019-06-11 12:01 | NUR ---
DR STRICKLAND AT BEDSIDE/ REMOVAL OF CHEST TUBES PATIENT IN BEDSIDE CHAIR, RECLINED. CHERELLE STRICKLAND REMOVED EPICARDIAL PACER WIRES AND 3 CHEST TUBES. PETROLEUM GAUZE AND 4X4 APPLIED BY , SECURED WITH FOAM TAPE. AWAITING CHEST XRAY
[2019-06-11] MEDS ORDERED: WARFARIN SODIUM 5 MG TAB PO SCH (17:00)
[2019-06-11] MEDS: VANCOMYCIN 1,250 MG in D5W 5% 250 ML IV SCH (17:18)
[2019-06-11] MEDS: NOREPINEPHRINE 8 MG/250ML KIT 250 ML IV SCH (20:47)
[2019-06-12] VITALS (25 sets, daily range): BP systolic 83–148; BP diastolic 39–76
[2019-06-12] MEDS: PIPERACILLIN-TAZO 4.5GM 100 ML IV SCH ×3 (01:37→18:00)
[2019-06-12] MEDS: HYDROcodone-ACET 5/325MG TAB PO PRN ×3 (03:49→20:13)
[2019-06-12] MEDS: ACCU-CHEK COMFORT CURVE STRIP VI SCH ×5 (03:55→20:06)
[2019-06-12] MEDS: InsuLIN REG 1unit/0.01ml Soln (100units/ml) SC SCH ×5 (03:56→20:06)
[2019-06-12 04:46] LABS: INR 1.1 (0.9-1.15)
--- NOTE | 2019-06-12 06:00 | NUR ---
PATIENT IS ORIENTED AND COOPERATIVE. CRISTIANE WEISS REMOVED Q6H. PATIENT DID IS 500-600ML. PAIN MED NORCO WAS GIVEN TWICE DURING NIGHT. RT.LEG IS RED, CYANOSIS NOTED ON RT LEG THIRD AND FOURTH TOE TIPS. Addendum: 06/12/19 at 0815 by Terry Ball RN LT LEG INCISION SITES CLEANED WITH CHG SWAB. BARRIER CREAM APPLIED ON ABDOMINAL FOLDS.
[2019-06-12] MEDS: FUROSEMIDE 20 MG TAB PO SCH ×2 (06:07→18:00)
[2019-06-12 07:22] LABS: Hematocrit 27.7 % (36.0-46.0); Hemoglobin 9.5 g/dL (12.2-16.2); Mean Corpuscular Hemoglobin 31.5 pg (28.0-32.0); Mean Corpuscular Hgb Conc. 34.2 g/dL (32.0-36.0); Mean Corpuscular Volume 92.3 fL (80.0-100.0); Platelet Count (auto) 73 10^3/uL (140-450); Red Blood Cells 3.01 10^6/uL (4.0-5.20); Red Cell Distribution Width 13.7 % (11.8-14.3); White Blood Cell 9.9 10^3/uL (4.4-10.8)
[2019-06-12 07:27] LABS: Basophils % (manual) 0 (0.0-2.0); Blast Cells 0; Metamyelocytes % 0; Myelocytes % 0; Promyelocytes % 0; Reactive Lymphocytes 0
[2019-06-12 07:29] LABS: Albumin 3.2 g/dL (3.4-5.0); Calcium 8.2 mg/dL (8.5-10.1); Magnesium 2.1 mg/dL (1.6-2.6); Potassium 4.2 mmol/L (3.5-5.1)
[2019-06-12 07:34] LABS: BUN/Creatinine Ratio 23.7; Bilirubin, Total 1.8 mg/dL (0.2-1.0); Total Protein 5.9 g/dL (6.4-8.2)
[2019-06-12 07:48] LABS: Band Neutrophils % (manual) 4; Eosinophils % (manual) 1 (0-7); Lymphocytes % (manual) 7 (10.0-50.0); Monocytes % (manual) 9 (0-12)
--- NOTE | 2019-06-12 08:15 | NUR ---
PHYSICAL THERAPY Physical therapy paged to room 105 through PBX to assist patient out of bed into chair for breakfast, awaiting for physical therapy to arrive.
[2019-06-12] MEDS: ACETYLCYSTEINE 10 %(100MG/ML) SOL 4ML NEB SCH ×2 (08:27→21:09)
[2019-06-12] MEDS: ALBUTEROL SULF 2.5 MG/0.5ML(0.5%) NEB SOLN NEB SCH ×3 (08:27→21:10)
[2019-06-12] MEDS: IPRATROPIUM BROM 0.5 MG/2.5ML INH SOL NEB SCH ×3 (08:27→21:10)
--- NOTE | 2019-06-12 08:30 | NUR ---
INCENTIVE SPIROMETER Patient instructed to use incentive spirometer. Educated and patient demonstrated proper use of incentive spirometer. Patient reached 800ml.
--- NOTE | 2019-06-12 09:10 | NUR ---
Received phone call from Dr. Artis and updated on patient condition with no new orders.
--- NOTE | 2019-06-12 09:15 | NUR ---
PHYSICAL THERAPY Physical therapist at bedside to assist patient up into chair. Patient was able to stand and pivot with maximum assistance.
--- NOTE | 2019-06-12 09:45 | NUR ---
Received another call from Dr. Artis and received new orders this RN to input into system.
[2019-06-12] MEDS: POTASSIUM EFFERVESENT TAB 25 MEQ GT SCH ×2 (10:09→21:44)
[2019-06-12] MEDS: FLUCONAZOLE 200MG/100ML 100 ML IV SCH ×2 (10:09→11:00)
[2019-06-12] MEDS: DIGOXIN (250MCG/ML) 2 ML AMPULE IV SCH (10:10)
[2019-06-12] MEDS: PANTOPRAZOLE 40 MG/10 ML VIAL INJ IV SCH (10:10)
[2019-06-12] MEDS: ASPirin 81 mg TAB PO SCH (10:11)
[2019-06-12] MEDS: CHLORHEXIDINE 0.12% ORAL rinse 473ML MT SCH ×2 (10:11→21:44)
[2019-06-12] MEDS: ASCORBIC ACID 500 MG TAB PO SCH (10:11)
[2019-06-12] MEDS: AMIODARONE HCL 200 MG TAB PO SCH ×2 (10:11→21:45)
--- NOTE | 2019-06-12 12:00 | NUR ---
CRISTIANE HOSE Patient refused to wear CRISTIANE hose secondary to right foot/calf redness/mottling. Educated patient on risk and benefits of CRISTIANE hose and patient verbalized understanding.
--- NOTE | 2019-06-12 13:00 | NUR ---
PHYSICAL THERAPY Physical therapist at bedside to assist patient back into bed. Patient tolerated well.
[2019-06-12 13:11] LABS: Albumin 3.3 g/dL (3.4-5.0); Calcium 8.3 mg/dL (8.5-10.1); Potassium 4.9 mmol/L (3.5-5.1)
[2019-06-12 13:15] LABS: BUN/Creatinine Ratio 21.4; Total Protein 6.5 g/dL (6.4-8.2)
--- NOTE | 2019-06-12 14:10 | NUR ---
ULTRASOUND voice and data technician at bedside to obtain study on right leg.
[2019-06-12] MEDS: SODIUM CHLORIDE 0.9% 1,000 ML IV SCH (14:15)
--- NOTE | 2019-06-12 15:45 | NUR ---
MD Called and spoke to Dr. Artis regarding Coumadin order and clarified with MD. states " Discontinue Coumadin 5 mg daily and give 3mg PO today." Called and spoke to pharmacist to make aware of MD order.
--- NOTE | 2019-06-12 16:00 | NUR ---
INCENTIVE SPIROMETER Observed patient using incentive spirometer throughout shift. Patient reaching 800ml.
[2019-06-12] MEDS: VANCOMYCIN 1,250 MG in D5W 5% 250 ML IV SCH (16:22)
[2019-06-12] MEDS ORDERED: WARFARIN SODIUM 1 MG TAB PO ONE (17:00)
--- NOTE | 2019-06-12 18:50 | NUR ---
HOSPITALIST Hospitalist paged and spoke to Dr. Vo regarding arterial ultrasound of the right leg. MD states " to call Dr. Artis and Dr. Purdy to let them know."
--- NOTE | 2019-06-12 18:55 | NUR ---
MD Dr. Artis called and spoke to him. aware of results of arterial ultrasound. states "Lets monitor it closely for now."
[2019-06-12] MEDS ORDERED: LACTULOSE 20Gm/30ML SOLN PO PRN (19:45)
[2019-06-12] MEDS ORDERED: MILK OF MAGNESIA 30ML SUSP PO PRN (19:45)
--- NOTE | 2019-06-12 20:22 | NUR ---
1930- CARE ASSUMED. ASSESSMENT - ALERT AND ORIENTED, SPEECH CLEAR, MOVES ALL EXTREMITIES, NO FACIAL ASYMMETRY. PERFORMS I.S UPON REQUEST, 600-800 EACH TIME. DISCUSSED THE IMPORTANCE OF COMPLIANCE WITH I.S. WET,NON PRODUCTIVE COUGH AFTER I.S. O2 AT 3L/NC, SATS 96%. LUNGS - CLEAR UPPER LOBES, COARSE AT BASES. CARDIAC - SINUS RHYTHM 70'S. SBP 110'S, NO PRESSORS. G.I - POOR APPETITE, 25% OF DINNER TRAY. NO BM SINCE 06/02, SPOKE TO DR. STRICKLAND REGARDING NO BM AND ORDERS RECEIVED. ABDOMEN - LARGE, SOFT, DIMINISHED BOWEL SOUNDS, NO C/O ABDOMINAL PAIN OR NAUSEA. G.U WEN CATH CLEAR, YELLOW SKIN - MIDSTERNAL AQUAL DRESSING IN PLACE, WILL CHANGE, LEFT MEDIAL KNEE INCISION CLEAN AND DRY. IV - LEFT UPPER MIDLINE, INTACT, NS KV0. RLE - BLOTCHY RED BELOW KNEE, SKIN WARM AND DRY, (+) PULSES LLE BLOTCHY RED BUT LESS COMPARED TO RLE, SKIN WARM AND DRY, (+) PEDAL PULSES, WEAK, POST TIBIAL. 2014 - MIDSTERNAL DRESSING CHANGED, SMALL AMT. OF REDNESS TO INCISIONAL AREA, MOIST, NO DEHISCENCE NOTED. CLEANED WITH [facility]GH SWABS AND CLEAN ISLAND DRESSING APPLIED. 2019- NORCO 5 MG, CRUSHED PROVIDED WITH APPLE SAUCE, SWALLOWS WITH NO DIFFICULTY. PLACED BI-PAP FOR BREATHING TREATMENT.
[2019-06-12] MEDS: NOREPINEPHRINE 8 MG/250ML KIT 250 ML IV SCH (20:47)
--- NOTE | 2019-06-12 23:00 | NUR ---
STRONG PRODUCTIVE COUGH, PERFORMS I.S Q2HR WHILE AWAKE.
[2019-06-13] VITALS (21 sets, daily range): BP systolic 84–134; BP diastolic 37–80
[2019-06-13] MEDS: ACCU-CHEK COMFORT CURVE STRIP VI SCH ×6 (00:05→20:00)
[2019-06-13] MEDS: InsuLIN REG 1unit/0.01ml Soln (100units/ml) SC SCH ×6 (00:13→20:00)
[2019-06-13] MEDS: IPRATROPIUM BROM 0.5 MG/2.5ML INH SOL NEB SCH ×6 (00:16→22:27)
[2019-06-13] MEDS: ALBUTEROL SULF 2.5 MG/0.5ML(0.5%) NEB SOLN NEB SCH ×6 (00:16→22:27)
[2019-06-13] MEDS: PIPERACILLIN-TAZO 4.5GM 100 ML IV SCH ×3 (01:27→18:11)
[2019-06-13 04:15] LABS: Basophils # (auto) 0 uL; Basophils % (auto) 0.4 % (0.0-2.0); Eosinophils # (auto) 0.3 uL; Eosinophils % (auto) 2.9 % (0.0-7.0); Hematocrit 27.8 % (36.0-46.0); Hemoglobin 9.6 g/dL (12.2-16.2); Lymphocytes # (auto) 1.1 uL; Lymphocytes % (auto) 11.6 % (10.0-50.0); Mean Corpuscular Hemoglobin 31.9 pg (28.0-32.0); Mean Corpuscular Hgb Conc. 34.7 g/dL (32.0-36.0); Monocytes # (auto) 0.6 uL; Monocytes % (auto) 6.4 % (0.0-12.0); Neutrophils # (auto) 7.5 uL; Neutrophils % (auto) 78.7 % (37.0-80.0); Nucleated Red Blood Cells % 0.1 %; Platelet Count (auto) 88 10^3/uL (140-450); Red Blood Cells 3.02 10^6/uL (4.0-5.20); White Blood Cell 9.6 10^3/uL (4.4-10.8)
[2019-06-13 04:25] LABS: INR 1.1 (0.9-1.15)
[2019-06-13 04:33] LABS: BUN/Creatinine Ratio 20.3; Calcium 8.4 mg/dL (8.5-10.1); Potassium 4.1 mmol/L (3.5-5.1)
--- NOTE | 2019-06-13 05:30 | NUR ---
COMPLETE BED BATH, ASSIST WITH TURNING. ASSISTED TO CHAIR WITH X2, VERY DIFFICULT, PT. DEMONSTRATE DIFFICULTY TAKING STEPS AND TENDS TO LEAN BACK WHEN TRYING TO TAKE STEP. ADMITS TO DIZZINESS. SATS 94%, HR 80'S.
[2019-06-13] MEDS: FUROSEMIDE 20 MG TAB PO SCH ×2 (05:58→18:11)
[2019-06-13] MEDS: HYDROcodone-ACET 5/325MG TAB PO PRN ×2 (06:04→16:07)
[2019-06-13] MEDS: ACETYLCYSTEINE 10 %(100MG/ML) SOL 4ML NEB SCH ×3 (06:12→18:29)
--- NOTE | 2019-06-13 06:18 | NUR ---
Respiratory note: PATIENT PLACED ON RENTAL CONCHIS BIPAP, WAS FITTED WITH A MEDIUM FULL FACE MASK AND IS BEING VENTILATED WITH THE CHARTED SETTINGS. SPO2 94%, LUNG SOUNDS CLEAR T/O. BIPAP PLUGGED INTO RED OUTLET AND ALL ALARMS ARE SET AND AUDIBLE. [employer] RUN INLINE.
--- NOTE | 2019-06-13 07:00 | NUR ---
ELIMINATION Patient on bedside commode and was able to have a large soft brown bowel movement. Anitha- care provided by Nahed LAMAR and assisted patient to chair. Patient tolerated well.
--- NOTE | 2019-06-13 09:10 | NUR ---
PHYSICAL THERAPY Physical therapy at bedside and was able to get patient up out of chair and walked about 12 feet. Patient tolerated well. Physical therapy to arrive again after lunch.
[2019-06-13] MEDS: CHLORHEXIDINE 0.12% ORAL rinse 473ML MT SCH ×2 (09:35→22:11)
[2019-06-13] MEDS: POTASSIUM EFFERVESENT TAB 25 MEQ GT SCH ×2 (10:07→22:10)
[2019-06-13] MEDS: DIGOXIN (250MCG/ML) 2 ML AMPULE IV SCH (10:08)
[2019-06-13] MEDS: ASPirin 81 mg TAB PO SCH (10:08)
[2019-06-13] MEDS: AMIODARONE HCL 200 MG TAB PO SCH ×2 (10:08→22:10)
[2019-06-13] MEDS: FLUCONAZOLE 200MG/100ML 100 ML IV SCH ×2 (10:08→11:00)
[2019-06-13] MEDS: ASCORBIC ACID 500 MG TAB PO SCH (10:08)
[2019-06-13] MEDS ORDERED: HEPARIN DRIP/D5W 100UNITS/ML 250 ML IV SCH ×2 (10:26→11:15)
[2019-06-13] MEDS ORDERED: HEPARIN SODIUM (PORCINE) 5000 UNITS/ML 1ML VIAL IV ONE (10:30)
[2019-06-13] MEDS: SODIUM CHLORIDE 0.9% 1,000 ML IV SCH (10:36)
[2019-06-13] MEDS: PANTOPRAZOLE 40 MG/10 ML VIAL INJ IV SCH (10:36)
--- NOTE | 2019-06-13 11:05 | NUR ---
MD Dr. Vigil at bedside updated on patient condition with new orders to start Heparin gtt at a fixed rate of 800 units and a bolus of 3000 units. MD spoke to patient regarding plan of care and questions and concerns answered by MD. Will continue to monitor patient closely.
[2019-06-13 11:09] LABS: Basophils # (auto) 0 uL; Basophils % (auto) 0.5 % (0.0-2.0); Eosinophils # (auto) 0.2 uL; Eosinophils % (auto) 2.3 % (0.0-7.0); Hematocrit 30.7 % (36.0-46.0); Hemoglobin 10.5 g/dL (12.2-16.2); Lymphocytes # (auto) 0.8 uL; Lymphocytes % (auto) 7.9 % (10.0-50.0); Mean Corpuscular Hemoglobin 31.6 pg (28.0-32.0); Mean Corpuscular Hgb Conc. 34.1 g/dL (32.0-36.0); Mean Corpuscular Volume 92.6 fL (80.0-100.0); Monocytes # (auto) 0.7 uL; Monocytes % (auto) 6.4 % (0.0-12.0); Neutrophils # (auto) 8.5 uL; Neutrophils % (auto) 82.9 % (37.0-80.0); Nucleated Red Blood Cells % 0.1 %; Platelet Count (auto) 95 10^3/uL (140-450); Red Blood Cells 3.32 10^6/uL (4.0-5.20); Red Cell Distribution Width 14.1 % (11.8-14.3); White Blood Cell 10.2 10^3/uL (4.4-10.8)
[2019-06-13 11:26] LABS: INR 1.12 (0.9-1.15); Partial Thromboplastin Time 26.2 sec (23.64-32.05)
--- NOTE | 2019-06-13 12:05 | NUR ---
Dr. Purdy at bedside updated on patient condition with new orders to Discontinue Heparin gtt and to start patient on Lovenox 1mg/kg BID and to hold Coumadin dose today. MD plans to take patient to labels molder for right leg and MD spoke to patient regarding plan of care and questions/concerns answered by MD. This RN to input orders received into system.
--- NOTE | 2019-06-13 12:30 | NUR ---
MD Dr. Vigil called and spoke to him regarding new orders received by Dr. Gurwinder MD agreed and aware of discontinuation of Heparin gtt, start of Lovenox, holding Coumadin dose today and laboratory analyst scheduled for Thursday.
--- NOTE | 2019-06-13 14:00 | NUR ---
Nutrition Follow-up Notes Wt.: 104.6 kg today. Pt's on oxygen via nasal cannula, sitting upn on bedside chair, watching TV, denies any discomfort when rounded this morning. Pt states that she usually weighs around 185 lbs, denies any significant weight change few months guest experience captain. Pt's new;y diagnosed diabetic, not on oral DM meds, usually has good appetite eat meals regularly, NKFA and not into any special diets guest experience captain. Pt's currently on Mechanical Soft Cardiac: 2 gms Na, Low Chol, Low Fat diet with inadequate PO intake aeb 50% ave. consumed meals (x5) in last 2 days. Encouraged to increase food intake through small frequent meals as tolerated. Provide verbal and written nutrition educ. re: current therapeutic diet as well as FDI for Lasix, Coumadin and she verbalized understanding. Est. Needs: 1750 kcal to 1850 kcal (18-20 kcal/kgBW), 78 gms to 101 gms pro (1.0-1.3 gms/kgIBW: 78 kg). Will continue to monitor pertinent labs and reassess nutrient need prn Labs: Gluc 148 H, Cl 92 L, CO2 38 H, Ca 8.4 L, Tot harsh 2.0 H, Alb 3.3 L Skin: Eh scale 13, mod risk, anterior medial chest incision dry and intact, right heel DTI per spool sorter. Pls refer to latest inventory control supervisor's notes for further details re: tx plans. GI: Pt had 1 BM this morning per spool sorter. PES: Resolved: Increased nutrient needs r/t acute/chronic medical condition aeb s/p heart surgery, intubated, sedated, NPO. Altered nutrition related lab values r/t current/chronic medical condition aeb hyperglycemia, hyponatremia, elev. BUN, Trop I. HbA1c, hypocalcemia Obesity r/t food intake more than body requirement aeb 165% IBW, BMI 34.8 kg/m2 and increased body adiposity Will continue to monitor PO intake, skin status, pertinent labs and weight trend. F/u in 3 to 5 days. Rec.: 1.) Consider Mechanical Soft Consistent Standard Carb: 60 gms/meal, Cardiac: 2 gms Na, Low Chol, Low Fat diet. 2.) Consider daily MVI with minerals and Asc acid 500 mgs BID. 3.) Continue close supervision and feeding assistance prn during meals. 4.) If pt's PO intake remains inadequate (<75%), consider Glucerna Shakes 1 carton BID. 5.) Refer pt to CDE/RD for further nutrition education and weight monitoring upon discharge. 6.) Continue current plan of care.
--- NOTE | 2019-06-13 14:15 | NUR ---
ELIMINATION Patient on bedside commode and was able to have a large soft brown bowel movement. Anitha- care provided and assisted patient back to chair with Alex LAMAR. Patient tolerated well.
--- NOTE | 2019-06-13 15:45 | NUR ---
PHYSICAL THERAPY Physical therapy at bedside and assisted patient out of bed and was able to walk about 12feet. Patient tolerated well. Patient has shown progress from yesterday. Will continue to monitor patient. Patient sitting in chair with incentive spirometry.
[2019-06-13] MEDS: VANCOMYCIN 1,250 MG in D5W 5% 250 ML IV SCH (16:08)
[2019-06-13] MEDS ORDERED: WARFARIN SODIUM 5 MG TAB PO ONE (17:00)
--- NOTE | 2019-06-13 17:20 | NUR ---
FAMILY Received phone call from patients Mr. De lRio, password provided and updated on patient condition.
[2019-06-13] MEDS: NOREPINEPHRINE 8 MG/250ML KIT 250 ML IV SCH (20:38)
[2019-06-13] MEDS: ENOXAPARIN SOD 100 MG/1 ML SYRINGE SC SCH (22:10)
[2019-06-14] VITALS (21 sets, daily range): BP systolic 84–132; BP diastolic 50–68
[2019-06-14] MEDS: PIPERACILLIN-TAZO 4.5GM 100 ML IV SCH (03:45)
[2019-06-14] MEDS: ACCU-CHEK COMFORT CURVE STRIP VI SCH ×6 (04:00→20:00)
[2019-06-14] MEDS: InsuLIN REG 1unit/0.01ml Soln (100units/ml) SC SCH ×6 (04:00→20:00)
[2019-06-14 04:16] LABS: INR 1.13 (0.9-1.15)
--- NOTE | 2019-06-14 05:30 | NUR ---
UP TO BEDSIDE CHAIR WITH X2 ASSIST. UNSTEADY, VERY WEAK, SHORT OF BREATH WITH TRYING TO REPOSITION IN CHAIR.
[2019-06-14] MEDS: FUROSEMIDE 20 MG TAB PO SCH ×2 (05:56→18:03)
[2019-06-14] MEDS: SODIUM CHLORIDE 0.9% 1,000 ML IV SCH (05:56)
[2019-06-14] MEDS: IPRATROPIUM BROM 0.5 MG/2.5ML INH SOL NEB SCH ×5 (06:05→22:11)
[2019-06-14] MEDS: ACETYLCYSTEINE 10 %(100MG/ML) SOL 4ML NEB SCH ×3 (06:05→22:12)
[2019-06-14] MEDS: ALBUTEROL SULF 2.5 MG/0.5ML(0.5%) NEB SOLN NEB SCH ×5 (06:05→22:11)
--- NOTE | 2019-06-14 06:09 | NUR ---
Respiratory note: PATIENT PLACED ON RENTAL CONCHIS BIPAP, WAS FITTED WITH A MEDIUM FULL FACE MASK AND IS BEING VENTILATED WITH THE CHARTED SETTINGS. LUNG SOUNDS CL/DIM T/O. BIPAP PLUGGED INTO RED OUTLET AND ALL ALARMS ARE SET AND AUDIBLE. [employer] RUN INLINE. SKIN IS CLEAR AROUND MASK SITE, NO REDNESS OR BREAKDOWN NOTED.
[2019-06-14 06:40] LABS: Basophils # (auto) 0.1 uL; Basophils % (auto) 1.2 % (0.0-2.0); Eosinophils # (auto) 0.2 uL; Eosinophils % (auto) 2.3 % (0.0-7.0); Hemoglobin 9.3 g/dL (12.2-16.2); Lymphocytes # (auto) 1.1 uL; Lymphocytes % (auto) 13.2 % (10.0-50.0); Mean Corpuscular Hemoglobin 31.9 pg (28.0-32.0); Mean Corpuscular Hgb Conc. 34.6 g/dL (32.0-36.0); Mean Corpuscular Volume 92.2 fL (80.0-100.0); Monocytes # (auto) 0.6 uL; Monocytes % (auto) 7.4 % (0.0-12.0); Neutrophils # (auto) 6.4 uL; Neutrophils % (auto) 75.9 % (37.0-80.0); Nucleated Red Blood Cells % 0.1 %; Platelet Count (auto) 115 10^3/uL (140-450); Red Blood Cells 2.92 10^6/uL (4.0-5.20); Red Cell Distribution Width 14.2 % (11.8-14.3); White Blood Cell 8.4 10^3/uL (4.4-10.8)
[2019-06-14 06:48] LABS: BUN/Creatinine Ratio 15.8; Calcium 8.4 mg/dL (8.5-10.1); Potassium 4.8 mmol/L (3.5-5.1)
--- NOTE | 2019-06-14 07:22 | NUR ---
REPORT TO JULISA LAMAR
--- NOTE | 2019-06-14 09:45 | NUR ---
PHYSICAL THERAPY Physical therapy at bedside and assisted patient with ambulation. Patient tolerated well but instead to be back in bed. Informed patient that if she gets back into bed she will get out of bed for lunch and will stay in chair for the rest of the day. Patient verbalized understanding of staying out of bed to help expand lungs especially if she is not tolerating much activity.
[2019-06-14] MEDS: CHLORHEXIDINE 0.12% ORAL rinse 473ML MT SCH ×2 (10:00→21:48)
[2019-06-14] MEDS: PANTOPRAZOLE 40 MG/10 ML VIAL INJ IV SCH (10:00)
[2019-06-14] MEDS: POTASSIUM EFFERVESENT TAB 25 MEQ GT SCH ×2 (10:00→21:46)
[2019-06-14] MEDS: FLUCONAZOLE 200MG/100ML 100 ML IV SCH ×2 (10:50→11:00)
[2019-06-14] MEDS: AMIODARONE HCL 200 MG TAB PO SCH ×2 (10:52→21:46)
[2019-06-14] MEDS: DIGOXIN (250MCG/ML) 2 ML AMPULE IV SCH (10:52)
[2019-06-14] MEDS: ASCORBIC ACID 500 MG TAB PO SCH (10:52)
[2019-06-14] MEDS: ASPirin 81 mg TAB PO SCH (10:53)
[2019-06-14] MEDS: HYDROcodone-ACET 5/325MG TAB PO PRN (10:53)
[2019-06-14] MEDS: ENOXAPARIN SOD 100 MG/1 ML SYRINGE SC SCH ×2 (10:53→21:46)
--- NOTE | 2019-06-14 11:30 | NUR ---
WOUND CARE NOTE: IN TO SEE PATIENT AT THIS TIME FOR SKIN INTEGRITY MONITORING. SINCE LAST VISIT, PATIENT HAS BEEN EXTUBATED. SHE IS AWAKE, ALERT, ORIENTED X 4. SHE HAS CURRENT PATTI SCORE OF 13. PATIENT IS ABLE TO TURN WITH ASSISTANCE BY STAFF. SACRAL SKIN IS PINK, BLANCHABLE. SHE CONTINUES TO HAVE MILD MOTTLING OF THE SKIN TO THE RIGHT FOOT/LAU/CALF. NO WOUNDS SEEN, SKIN BLANCHES, EDEMA NOTED. ELEVATED LEG UP ONTO PILLOW. 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 PHOTOGRAPHED RLE FOR REFERENCE. RECOMMEND: CONTINUATION WITH ALL WOUND CARE ORDERS PREVIOUSLY PRESCRIBED BY MD. RECOMMEND: CONTINUATION WITH ALL WOUND CARE ORDERS PREVIOUSLY PRESCRIBED BY MD. WOUND CARE TEAM WILL CONTINUE TO MONITOR. Addendum: 06/14/19 at 1645 by Diana Olsen RN Amended: Links added.
[2019-06-14] MEDS ORDERED: VANCOMYCIN 1GM/250ML 250 ML IV SCH (12:00)
--- NOTE | 2019-06-14 14:45 | NUR ---
ULTRASOUND alarm technician at bedside to obtain study on right leg per MD.
--- NOTE | 2019-06-14 15:00 | NUR ---
PHYSICAL THERAPY Physical therapist at bedside to assist patient out of bed and into chair. Patient tolerated well. Patient then ambulated out of the room about 20feet. No incidents occurred. Will continue to monitor patient.
--- NOTE | 2019-06-14 15:55 | NUR ---
MD Dr. Vigil called to notify him that patient has gone into A-fib at a controlled rate of 100-120's, will attempt to call back later.
--- NOTE | 2019-06-14 16:00 | NUR ---
FAMILY Patients daughter at bedside.
--- NOTE | 2019-06-14 20:00 | NUR ---
ASSESSMENT: ALERT AND ORIENTED, MOVES ALL EXTREMITIES, GENERALIZED WEAKNESS PERSIST. REQUIRES X2 ASSIST TO TAKE STEPS AND TRANSFER BACK AND FORTH TO BED. ABLE TO FEED HERSELF. DRINKING FLUIDS WITH NO DIFFICULTIES. PUPILS EQUAL AND REACTIVE, NO FACIAL ASYMMETRY. CARDIAC - ATRIAL FIB 109, NO PVC'S. SBP 100'S. LUNGS WITH INCREASED COARSENESS POSTERIORLY, STRONG PRODUCTIVE COUGH. INSTRUCTED ON COMPLIANCE WITH I.S ABDOMEN - LARGE, DIMISHED BOWEL SOUNDS, BM TODAY. CONTINUES TO HAVE POOR APPETITE WEN WITH ADEQUATE CLEAR, YELLOW URINE. SKIN - BRUISING TO LEFT FEMORAL REMAINS, BLOTCHY RED SPOTS TO BLE PULSES PALPABLE. SKIN WARM AND DRY. GRICELDA MID LINE INTACT.
[2019-06-14] MEDS: NOREPINEPHRINE 8 MG/250ML KIT 250 ML IV SCH (20:47)
[2019-06-15] VITALS (25 sets, daily range): BP systolic 78–110; BP diastolic 42–67
[2019-06-15] MEDS: ACCU-CHEK COMFORT CURVE STRIP VI SCH ×5 (00:21→18:19)
[2019-06-15] MEDS: InsuLIN REG 1unit/0.01ml Soln (100units/ml) SC SCH ×5 (00:21→18:00)
--- NOTE | 2019-06-15 01:00 | NUR ---
WAKES UP VERY UPSET AND STATES SHE IS GOING HOME AND TO CALL POLICE HER BELONGING BEING TAKEN AWAY, REORIENTED, BETTER. HR 99, SPEECH CLEAR, NO FACIAL ASYMMETRY. MOVES ALL EXTREMITIES.
--- NOTE | 2019-06-15 04:00 | NUR ---
IS 1000 CC EACH TIME
[2019-06-15 04:32] LABS: Basophils # (auto) 0.1 uL; Basophils % (auto) 0.9 % (0.0-2.0); Eosinophils # (auto) 0.2 uL; Hemoglobin 9.2 g/dL (12.2-16.2); Lymphocytes # (auto) 1.7 uL; Lymphocytes % (auto) 22.4 % (10.0-50.0); Mean Corpuscular Hemoglobin 31.2 pg (28.0-32.0); Mean Corpuscular Volume 91.9 fL (80.0-100.0); Monocytes # (auto) 0.6 uL; Monocytes % (auto) 8.1 % (0.0-12.0); Neutrophils # (auto) 5.1 uL; Neutrophils % (auto) 65.6 % (37.0-80.0); Platelet Count (auto) 143 10^3/uL (140-450); Red Blood Cells 2.94 10^6/uL (4.0-5.20); Red Cell Distribution Width 14.1 % (11.8-14.3); White Blood Cell 7.8 10^3/uL (4.4-10.8)
[2019-06-15 04:53] LABS: BUN/Creatinine Ratio 16.3; Calcium 8.7 mg/dL (8.5-10.1); Potassium 4.1 mmol/L (3.5-5.1)
[2019-06-15 04:54] LABS: INR 1.11 (0.9-1.15)
[2019-06-15] MEDS: FUROSEMIDE 20 MG TAB PO SCH ×2 (06:32→17:45)
--- NOTE | 2019-06-15 06:45 | NUR ---
UP TO BEDSIDE CHAIR WITH X2 ASSIST, WEAKNESS NOT IMPROVED, SHORT OF BREATH WITH ACTIVITY
[2019-06-15] MEDS: ACETYLCYSTEINE 10 %(100MG/ML) SOL 4ML NEB SCH ×3 (06:59→21:49)
[2019-06-15] MEDS: ALBUTEROL SULF 2.5 MG/0.5ML(0.5%) NEB SOLN NEB SCH ×5 (06:59→21:49)
[2019-06-15] MEDS: IPRATROPIUM BROM 0.5 MG/2.5ML INH SOL NEB SCH ×5 (06:59→21:49)
--- NOTE | 2019-06-15 06:59 | NUR ---
Respiratory note: PATIENT PLACED ON BIPAP AND GIVEN IN LINE MEDNEB TX, NO ADVERSE EFFECTS NOTED. LUNG SOUNDS CLEAR/DIM T/O. BIPAP PLUGGED INTO RED OUTLET AND ALL ALARMS ARE AUDIBLE AND FUNCTIONING. SKIN IS INTACT, NO BREAKDOWN NOTED.
--- NOTE | 2019-06-15 07:30 | NUR ---
RECEIVED REPORT PATIENT SITTING IN BEDSIDE CHAIR, AOX4. NO S/S OF DISTRESS NOTED. PATIENT DENIES PAIN AT THIS TIME. CONNECTED TO BEDSIDE MONITORS. PATIENT CURRENTLY NPO, AWAITING PROCEDURE IN PRESCHOOL ASSISTANT TODAY FOR RIGHT LEG ARTERIAL OCCLUSION. WEN PRESENT AND DRAINING TO GRAVITY. CALL LIGHT WITHIN REACH AND EDUCATED TO CALL IF NEEDED. WITHIN VIEW OF NURSES STATION. WILL CONTINUE TO MONITOR
--- NOTE | 2019-06-15 09:10 | NUR ---
PHYSICAL THERAPY AT BEDSIDE PATIENT AMBULATED WITH PHYSICAL THERAPIST ASSISTANCE 20 FEET, USING FWW. VITALS REMAINED STABLE. PATIENT BACK TO BEDSIDE CHAIR
[2019-06-15] MEDS: CHLORHEXIDINE 0.12% ORAL rinse 473ML MT SCH ×2 (10:00→21:28)
[2019-06-15] MEDS: ASPirin 81 mg TAB PO SCH (10:00)
[2019-06-15] MEDS: POTASSIUM EFFERVESENT TAB 25 MEQ GT SCH ×2 (10:00→21:27)
[2019-06-15] MEDS: ENOXAPARIN SOD 100 MG/1 ML SYRINGE SC SCH ×2 (10:00→21:28)
[2019-06-15] MEDS: ASCORBIC ACID 500 MG TAB PO SCH (10:00)
[2019-06-15] MEDS: DIGOXIN (250MCG/ML) 2 ML AMPULE IV SCH (10:00)
[2019-06-15] MEDS: AMIODARONE HCL 200 MG TAB PO SCH ×2 (10:00→21:27)
--- NOTE | 2019-06-15 10:00 | NUR ---
DIGOXIN HELD, DECREASED BLOOD PRESSURE 82/50 AND 91/50 AND HEART RATE AFIB 90S-100S WILL NOTIFY
[2019-06-15] MEDS ORDERED: LIDOCAINE 2%HCL (LOCAL ANESTH.) INJ 20ML MDV ONE (10:40)
[2019-06-15] MEDS ORDERED: IOHEXOL 350 MG/ML 100ML IJ ONE (10:40)
[2019-06-15] MEDS ORDERED: ANGIOMAX 250 MG VIAL IV ONE (10:52)
[2019-06-15] MEDS ORDERED: SODIUM CHL 0.9% 50 ML ONE (10:53)
[2019-06-15] MEDS ORDERED: fentaNYL CITRATE 100 MCG/2 ML VL ONE (10:53)
[2019-06-15] MEDS ORDERED: MIDAZOLAM HCL 1MG/1ML-2 ML VIAL ONE (10:53)
--- NOTE | 2019-06-15 10:53 | NUR ---
FALAFEL CART COOK TEAM AT BEDSIDE ASSISTED PATIENT TO BED, CONNECTED TO PORTABLE TECHNICAL MARKETING CONSULTANT AND PORTABLE OXYGEN. FALAFEL CART COOK TEAM TRANSPORTED TO FALAFEL CART COOK FOR PROCEDURE
[2019-06-15] MEDS ORDERED: diphenhdrAMINE HCL 50 MG/1 ML VL ONE (11:10)
--- NOTE | 2019-06-15 12:50 | NUR ---
PATIENT RETURNED FROM [place] LINE ATTENDANT PATIENTS VITALS STABLE, SLEEPY BUT AWAKES TO VOICE. LEFT GROIN SOFT, NO S/S OF HEMATOMA OR BLEEDING NOTED. PATIENT EDUCATED MUST LIE FLAT AND NOT BEND LEG. PATIENT VERBALIZED UNDERSTANDING. CALL LIGHT WITH IN REACH AND EDUCATED TO CALL IF NEEDED
[2019-06-15] MEDS: FLUCONAZOLE 200MG/100ML 100 ML IV SCH (12:58)
--- NOTE | 2019-06-15 14:25 | NUR ---
ULTRASOUND This RN covering for Joie RN for lunch, implementation technician at bedside to obtain study.
--- NOTE | 2019-06-15 15:00 | NUR ---
DR LOPEZ AT BEDSIDE MD WANTS TO RESTART COUMADIN THERAPY PER PHARMACY PROTOCOL.
--- NOTE | 2019-06-15 16:00 | NUR ---
DR LOPEZ NOTIFIED OF LEFT ARTERIAL LOWER EXTREMITY STUDY RESULTS
[2019-06-15] MEDS ORDERED: WARFARIN SODIUM 2.5 MG TAB PO ONE (17:00)
[2019-06-15] MEDS ORDERED: DEXTROSE (50%) 50ML SYRG IV PRN (17:30)
--- NOTE | 2019-06-15 17:45 | NUR ---
DR YEE AT BEDSIDE DISCUSSED PLAN OF CARE, NEW ORDERS PLACED
--- NOTE | 2019-06-15 19:30 | NUR ---
Initial Assessment Patient received sitting up in bed watching television. Patient is awake,alert, and oriented x4 with no s/s of distress and no complaints of pain. RR even and unlabored with equal rise and fall on 2L o2 via N/C. HOB elevated to 30 degrees. Mid-sternal and chest tube D/C site incision dressings are CDI. GRICELDA mid-line dressing is CDI. Abd soft and non-tender. F/C intact and draining to gravity. Mottling noted to BLE but neurovascular status is intact with bilateral distal pulses auscultated via Doppler and radial pulses easily palpable. Patient educated about how to use the call light and encouraged to call when needing any assistance and patient verbalized understanding. Bed in lowest position, side rails up, bed brakes set, bed alarm set, in direct view of nurses station, all alarms audible. provided with fresh water. Denies needing anything at this time. Continue close monitoring.
--- NOTE | 2019-06-15 20:30 | NUR ---
Dinner Patient ate approximately 75% of dinner independently. Patient tolerated well.
[2019-06-15] MEDS: NOREPINEPHRINE 8 MG/250ML KIT 250 ML IV SCH (20:47)
[2019-06-15] MEDS: CARVEDILOL 3.125 MG TAB PO SCH (21:20)
[2019-06-15] MEDS: SACUBITRIL-VALSARTAN 24mg/26mg TAB PO SCH (21:20)
[2019-06-15] MEDS: ACETAMINOPHEN 650 mg PER 20 mL UD PO PRN (21:30)
--- NOTE | 2019-06-15 23:00 | NUR ---
Incentive Spirometer Patient demonstrated proper technique with IS. Able to get 750 ml of inspired air on best effort. RN will continue to encourage use of IS.
[2019-06-16] VITALS (65 sets, daily range): BP systolic 83–137; BP diastolic 39–79
[2019-06-16] MEDS: InsuLIN REG 1unit/0.01ml Soln (100units/ml) SC SCH ×5 (00:18→23:42)
[2019-06-16] MEDS: ACCU-CHEK COMFORT CURVE STRIP VI SCH ×5 (00:18→23:42)
--- NOTE | 2019-06-16 00:45 | NUR ---
Levophed initiation MAP consistently less than 65. Levophed initiated per protocol through Mid-line. patient tolerating well.
--- NOTE | 2019-06-16 01:30 | NUR ---
Ongoing Assessment MAP greater than 65 with initiation of Levophed. Patient resting in bed with eyes closed and RR even and unlabored with equal rise and fall. Awakens easily to verbal stimulation. No S/S of distress or pain noted. HOB elevated. Mid-line intact and patent with no s/s of infiltration or phlebitis noted. No s/s of bleeding noted. Neurovascular status remains intact with palpable distal pulses, skin warm to touch, and capillary refill brisk. RR even and unlabored with equal rise and fall. All vitals stable. Continue close monitoring.
--- NOTE | 2019-06-16 04:00 | NUR ---
Hygiene/incisional care patient given partial CHG bath. All linens and gown changed. New Optifoam gentle adhesive dressing applied to sacral area to prevent friction and shear. Mid-sternal incision cleansed with CHG Swabstick and left open to air. Chest tube D/C sites cleansed with CHG Swabsticks and re-dressed with occlusive petroleum gauze, sterile gauze, and Medipore tape. Incisions are free from any s/s of infection or dehiscence and mid-sternal incision is well approximated. patient tolerated well.
[2019-06-16 04:10] LABS: Basophils # (auto) 0.1 uL; Basophils % (auto) 0.8 % (0.0-2.0); Eosinophils # (auto) 0.3 uL; Eosinophils % (auto) 3.5 % (0.0-7.0); Hematocrit 28.4 % (36.0-46.0); Hemoglobin 9.7 g/dL (12.2-16.2); Lymphocytes # (auto) 1.4 uL; Lymphocytes % (auto) 18.9 % (10.0-50.0); Mean Corpuscular Hemoglobin 31.5 pg (28.0-32.0); Mean Corpuscular Hgb Conc. 34.1 g/dL (32.0-36.0); Mean Corpuscular Volume 92.4 fL (80.0-100.0); Monocytes # (auto) 0.7 uL; Monocytes % (auto) 9.8 % (0.0-12.0); Neutrophils # (auto) 4.8 uL; Nucleated Red Blood Cells % 0.1 %; Platelet Count (auto) 170 10^3/uL (140-450); Red Blood Cells 3.08 10^6/uL (4.0-5.20); Red Cell Distribution Width 14.8 % (11.8-14.3); White Blood Cell 7.2 10^3/uL (4.4-10.8)
[2019-06-16 04:24] LABS: INR 1.15 (0.9-1.15)
--- NOTE | 2019-06-16 05:30 | NUR ---
Refusing activity Patient refusing to get OOB to chair this morning-stating she is tired and wants to sleep more. Education provided on risks of not complying with activity regime. Patient verbalized understanding but continues to refuse.
[2019-06-16] MEDS: IPRATROPIUM BROM 0.5 MG/2.5ML INH SOL NEB SCH ×5 (05:36→22:21)
[2019-06-16] MEDS: ALBUTEROL SULF 2.5 MG/0.5ML(0.5%) NEB SOLN NEB SCH ×5 (05:36→22:21)
[2019-06-16] MEDS: ACETYLCYSTEINE 10 %(100MG/ML) SOL 4ML NEB SCH ×3 (05:36→22:21)
[2019-06-16] MEDS: FUROSEMIDE 20 MG TAB PO SCH ×2 (05:37→18:00)
--- NOTE | 2019-06-16 07:03 | NUR ---
Report given No changes or incidents to report. Care endorsed to day shift RN.
[2019-06-16 07:19] LABS: BUN/Creatinine Ratio 21.7; Calcium 8.3 mg/dL (8.5-10.1); Potassium 4.2 mmol/L (3.5-5.1)
[2019-06-16] MEDS ORDERED: FUROSEMIDE 20 MG/2 ML VIAL IV ONE (07:45)
[2019-06-16] MEDS ORDERED: ALBUMIN 25% 50 ML IV ONE (07:45)
--- NOTE | 2019-06-16 08:00 | NUR ---
LEVOPHED STOPPED BLOOD PRESSURE 95/50. WILL CONTINUE TO MONITOR CLOSELY
--- NOTE | 2019-06-16 09:20 | NUR ---
PHYSICAL THERAPY AT BEDSIDE PATIENT AMBULATED JUST PAST DOORWAY OF ROOM AND BACK TO BEDSIDE CHAIR. VITALS STABLE. CALL LIGHT WITHIN REACH.
[2019-06-16] MEDS: SACUBITRIL-VALSARTAN 24mg/26mg TAB PO SCH (10:00)
[2019-06-16] MEDS: DIGOXIN (250MCG/ML) 2 ML AMPULE IV SCH (10:00)
--- NOTE | 2019-06-16 10:22 | NUR ---
PATIENTS BELONGING SENT HOME WITH PATIENTS AT PATIENTS REQUEST, ALL BELONGINGS INCLUDING PATIENTS RINGS AND CELLPHONE WERE SENT HOME WITH PATIENTS SHARON
[2019-06-16] MEDS: CARVEDILOL 3.125 MG TAB PO SCH ×2 (10:44→21:05)
[2019-06-16] MEDS: POTASSIUM EFFERVESENT TAB 25 MEQ GT SCH ×2 (11:47→21:04)
[2019-06-16] MEDS: PANTOPRAZOLE 40 MG TAB PO SCH (11:47)
[2019-06-16] MEDS: FLUCONAZOLE 100 MG TAB PO SCH (11:48)
[2019-06-16] MEDS: ASCORBIC ACID 500 MG TAB PO SCH (11:49)
[2019-06-16] MEDS: AMIODARONE HCL 200 MG TAB PO SCH ×2 (11:49→21:04)
[2019-06-16] MEDS: ASPirin 81 mg TAB PO SCH (11:49)
[2019-06-16] MEDS: HYDROcodone-ACET 5/325MG TAB PO PRN (11:50)
[2019-06-16] MEDS: CHLORHEXIDINE 0.12% ORAL rinse 473ML MT SCH ×2 (11:55→21:04)
--- NOTE | 2019-06-16 11:55 | NUR ---
Nutrition Follow-up Notes Wt.: 104.0 kg today. Pt's on facia BiPAP mask, asleep, no signs of distress noted during rounds earlier. Pt's currently on Consistent Low Carb: 45 gms/meal diet with inadequate PO intake aeb <50% ave. consumed meals (x6) in last 2.5 days. Est. Needs: 1750 kcal to 1850 kcal (18-20 kcal/kgBW), 78 gms to 101 gms pro (1.0-1.3 gms/kgIBW: 78 kg). Will continue to monitor pertinent labs and reassess nutrient need prn Labs: Gluc 178 H, Cl 97 L, CO2 34 H, Ca 8.4 L Skin: Eh scale 15, mod risk, anterior medial chest incision dry and intact, right heel DTI per social work professor. Pls refer to latest laundry tech's notes for further details re: tx plans. GI: Pt had 1 BM yesterday per social work professor. PES: Resolved: Increased nutrient needs r/t acute/chronic medical condition aeb s/p heart surgery, intubated, sedated, NPO. Altered nutrition related lab values r/t current/chronic medical condition aeb hyperglycemia, hyponatremia, elev. BUN, Trop I. HbA1c, hypocalcemia Obesity r/t food intake more than body requirement aeb 165% IBW, BMI 34.8 kg/m2 and increased body adiposity Will continue to monitor PO intake, skin status, pertinent labs and weight trend. F/u in 3 to 5 days. Rec.: 1.) Consider Consistent Standard Carb: 60 gms/meal, Cardiac: 2 gms Na, Low Chol, Low Fat diet. 2.) Continue close supervision and feeding assistance prn during meals. 3.) Consider daily MVI with minerals and Asc acid 500 mgs BID. 4.) If pt's PO intake remains inadequate (<75%), consider Glucerna Shakes 1 carton BID. 5.) Refer pt to CDE/RD for further nutrition education and weight monitoring upon discharge. 6.) Continue current plan of care.
[2019-06-16] MEDS: ENOXAPARIN SOD 100 MG/1 ML SYRINGE SC SCH ×2 (11:56→21:05)
--- NOTE | 2019-06-16 12:40 | NUR ---
DR YEE AT BEDSIDE NEW ORDERS PLACED
--- NOTE | 2019-06-16 16:40 | NUR ---
Discharge planning per SS consult, patient has orders to dc for rehab to [facility]. Referral faxed to [facility], placed a follow up call, spoke with Minh and was advised that she did receive the referral and that the patient looked appropriate for placement and that she would be here first thing in the am on 06.17.19 to perform her physical evaluation for placement and she would have all the information regarding admission with her when she came and would provide it to me then. Nurse Salter was advised of dc plan.
[2019-06-16] MEDS ORDERED: WARFARIN SODIUM 10 MG TAB PO ONE (17:00)
--- NOTE | 2019-06-16 19:30 | NUR ---
Initial Assessment Patient received sitting up in chair at bedside watching television. Patient is awake,alert, and oriented x4 with no s/s of distress and no complaints of pain. RR even and unlabored with equal rise and fall on 3L o2 via N/C. Mid-sternal incision benign with area of pink on surrounding tissue where previous tape was. chest tube D/C site incision dressing is CDI. GRICELDA mid-line dressing is CDI. Abd soft and non-tender. F/C intact and draining to gravity. Mottling noted to BLE but neurovascular status is intact with bilateral distal pulses auscultated via Doppler and radial pulses easily palpable. Patient educated about how to use the call light and encouraged to call when needing any assistance and patient verbalized understanding. In direct view of nurses station, all alarms audible. provided with fresh water. Denies needing anything at this time. Continue close monitoring.
--- NOTE | 2019-06-16 20:30 | NUR ---
Dinner Patient ate approximately 90% of dinner independently. Patient tolerated well.
[2019-06-16] MEDS: ACETAMINOPHEN 650 mg PER 20 mL UD PO PRN (21:04)
--- NOTE | 2019-06-16 22:00 | NUR ---
Elimination patient assisted to bedside commode with maximum assist. Patient voided moderate sized/soft/brown bowel movement into bedside commode. Anitha-care provided. Assisted back into chair at bedside.
--- NOTE | 2019-06-16 22:45 | NUR ---
Activity Patient assisted from chair to bed with maximum assist without incident. Patient tolerated well but did C/O dizziness. No SOB or chest pain. Continue close monitoring.
--- NOTE | 2019-06-16 23:45 | NUR ---
Incentive Spirometer patient using IS intermittently. Able to get 500-750ml of inspired air on best effort.
[2019-06-17] VITALS (30 sets, daily range): BP systolic 86–148; BP diastolic 38–70
--- NOTE | 2019-06-17 02:15 | NUR ---
Ongoing Assessment No changes or incidents to report. Patient resting in bed with eyes closed and RR even and unlabored with equal rise and fall. Awakens easily to verbal stimulation. No S/S of distress or pain noted. HOB elevated. Mid-line intact and patent with no s/s of infiltration or phlebitis noted. No s/s of bleeding noted. Neurovascular status remains intact with palpable distal pulses, skin warm to touch, and capillary refill brisk. RR even and unlabored with equal rise and fall. All vitals stable. All fall and safety precautions intact. Continue close monitoring.
--- NOTE | 2019-06-17 03:30 | NUR ---
Hygiene/incisional care patient given partial CHG bath. All linens and gown changed. Mid-sternal incision cleansed with CHG Swabstick and left open to air. Chest tube D/C sites cleansed with CHG Swabsticks and re-dressed with occlusive petroleum gauze, sterile gauze, and Medipore tape. Incisions are free from any s/s of infection or dehiscence and mid-sternal incision is well approximated. patient tolerated well.
[2019-06-17 04:09] LABS: INR 1.8 (0.9-1.15)
[2019-06-17 04:20] LABS: BUN/Creatinine Ratio 19.4; Calcium 8.7 mg/dL (8.5-10.1)
[2019-06-17] MEDS: InsuLIN REG 1unit/0.01ml Soln (100units/ml) SC SCH ×4 (05:24→23:49)
[2019-06-17] MEDS: ACCU-CHEK COMFORT CURVE STRIP VI SCH ×4 (05:24→23:48)
--- NOTE | 2019-06-17 05:30 | NUR ---
Oxygen Humidifier added to N/C to prevent drying of mucosa.
[2019-06-17] MEDS: FUROSEMIDE 20 MG TAB PO SCH ×2 (06:02→18:33)
[2019-06-17] MEDS: IPRATROPIUM BROM 0.5 MG/2.5ML INH SOL NEB SCH ×5 (06:26→23:04)
[2019-06-17] MEDS: ALBUTEROL SULF 2.5 MG/0.5ML(0.5%) NEB SOLN NEB SCH ×5 (06:26→23:04)
[2019-06-17] MEDS: ACETYLCYSTEINE 10 %(100MG/ML) SOL 4ML NEB SCH ×3 (06:32→23:04)
--- NOTE | 2019-06-17 07:05 | NUR ---
Report given No changes or incidents to report. All vitals stable. All fall/safety precautions are intact. Care endorsed to day shift RN.
--- NOTE | 2019-06-17 07:30 | NUR ---
REPORT REPORT RECEIVED AND BEDSIDE CHECK DONE. PT AWAKE AND WATCHING TV WITH NO COMPLAINTS OF PAIN. CONTINUE TO MONITOR.
[2019-06-17] MEDS: NOREPINEPHRINE 8 MG/250ML KIT 250 ML IV SCH (08:20)
--- NOTE | 2019-06-17 08:20 | NUR ---
ASSESSMENT PT AWAKE AND A/O X4. ABLE TO FOLLOW SIMPLE COMMANDS AND HELP REPOSITION SELF IN BED. LUNGS CLEAR THROUGHOUT. O2 AT 3 L/M VIA NC WITH O2 SAT OF 97%. TELE SR 77 WITH FIRST DEGREE AV BLOCK. PALPABLE PULSES TO ALL EXTREMITIES WITH PULSES TO LOWER EXTREMITIES WEAK PALPABLE. NO SCDS OR CRISTIANE HOSE DUE TO + OCCLUSIONS IN BLE. ABD SOFT WITH HYPOACTIVE BOWEL SOUNDS. DRY DRESSING OVER PREVIOUS CT SITES, UPPER MIDLINE ABD/LOWER CHEST. INCISION TO RIGHT INNER KNEE IS OPEN TO AIR AND CLEAN AND DRY. NO REDNESS NOTED. WEN CATHETER DRAINING CLEAR YELLOW URINE. ASSISTED PT TO SIT ON THE EDGE OF THE BED X 5 MINUTES. EXPERIENCED INITIAL DIZZINESS WHICH SUBSIDED WITHIN 3-5 MINUTES. PT THEN ASSISTED THE PT TO THE CHAIR. BECAME SLIGHTLY SOB WHICH SUBSIDED IN 2-3 MINUTES. PT DENIES ANY PAIN. PT NOTED TO HAVE A AREA ON HER RIGHT HEEL WHICH IS A SDTI SURROUNDED BY BLANCHABLE RED. KEEPING HEEL OFFLOADED WITH PILLOWS. INFORMED PATIENT OF THAT. SKIN INTACT TO SACRUM. RAILS UP X4 AND BED IN LOW POSITION FOR PT SAFETY.
--- NOTE | 2019-06-17 08:53 | NUR ---
FAMILY BROUGHT TO THE BEDSIDE AND UPDATED ON THE PT'S CURRENT CONDITION.
[2019-06-17] MEDS: FLUCONAZOLE 100 MG TAB PO SCH (11:09)
[2019-06-17] MEDS: PANTOPRAZOLE 40 MG TAB PO SCH (11:10)
[2019-06-17] MEDS: ASPirin 81 mg TAB PO SCH (11:10)
[2019-06-17] MEDS: ASCORBIC ACID 500 MG TAB PO SCH (11:10)
[2019-06-17] MEDS: AMIODARONE HCL 200 MG TAB PO SCH ×2 (11:11→22:20)
[2019-06-17] MEDS: CARVEDILOL 3.125 MG TAB PO SCH ×2 (11:11→22:20)
[2019-06-17] MEDS: POTASSIUM EFFERVESENT TAB 25 MEQ GT SCH ×2 (11:12→22:19)
[2019-06-17] MEDS: CHLORHEXIDINE 0.12% ORAL rinse 473ML MT SCH ×2 (11:12→22:19)
[2019-06-17 11:55] LABS: Basophils # (auto) 0 uL; Basophils % (auto) 0.6 % (0.0-2.0); Eosinophils # (auto) 0.2 uL; Eosinophils % (auto) 2.7 % (0.0-7.0); Hemoglobin 9.2 g/dL (12.2-16.2); Lymphocytes # (auto) 1.1 uL; Lymphocytes % (auto) 13.9 % (10.0-50.0); Mean Corpuscular Hemoglobin 31.3 pg (28.0-32.0); Monocytes # (auto) 0.5 uL; Monocytes % (auto) 6.3 % (0.0-12.0); Neutrophils # (auto) 6.1 uL; Neutrophils % (auto) 76.5 % (37.0-80.0); Platelet Count (auto) 188 10^3/uL (140-450); Red Blood Cells 2.94 10^6/uL (4.0-5.20); Red Cell Distribution Width 14.4 % (11.8-14.3)
--- NOTE | 2019-06-17 12:00 | NUR ---
ACCUCHECK OF 164 AND PT GIVEN 3 UNITS OF REGULAR INSULIN SQ.
[2019-06-17] MEDS: HYDROcodone-ACET 5/325MG TAB PO PRN (12:13)
--- NOTE | 2019-06-17 12:13 | NUR ---
PAIN PT MEDICATED WITH NORCO 5/325 ONE TABLET PO FOR C/O LOWER BACK PAIN. ADVISED PT NOT TO TRY AND GET UP OUT OF THE CHAIR WITHOUT ASSISTANCE. SHE EXPRESSED UNDERSTANDING . CALL LIGHT WITHIN REACH.
--- NOTE | 2019-06-17 13:57 | NUR ---
REPORT PT WITH ORDERS TO TRANSFER TO ROOM #263. REPORT CALLED TO RECEIVING RNFORTUNATO. WILL TRANSPORT PT VIA TO NEW ROOM WHEN RN READY.
--- NOTE | 2019-06-17 15:45 | NUR ---
TRANSFERRED TO ROOM #263 VIA BED WITH PORTABLE O2 AND MUD PLANT OPERATOR IN PLACE. RECEIVING RN, FORTUNATO, AT BEDSIDE. CONNECTED TO BEDSIDE MONITORING AND O2. PT'S BELONGINGS WITH PT. PREVIOUSLY NOTIFIED OF PT'S TRANSFER AND ROOM ASSIGNMENT.
[2019-06-17] MEDS ORDERED: WARFARIN SODIUM 2 MG TAB PO ONE (17:00)
--- NOTE | 2019-06-17 17:00 | NUR ---
Patient sitting up on bedside wheel chair. Patient is comfortable and wants to continue sitting in wheel chair. Patient denies any pain/SOB or distress. Will continue to monitor.
--- NOTE | 2019-06-17 18:30 | NUR ---
End of shift note: Patient back in bed sitting up and eating dinner independently. Patient on the monitor. Patient on 3L NC saturation at 95%. Patient A&Ox4. IV left upper arm midline saline locked, patent, clean, dry, and intact. Ramos to gravity. Patient denies any pain/SOB or distress at this time. Bed locked and in the lowest position, side rails up x2, call light with in reach. Report to be given to second shift supervisor RN. Will continue to monitor.
--- NOTE | 2019-06-17 19:45 | NUR ---
SHIFT OPENING NOTE PATIENT IS AWAKE, ALERT AND ORIENTED X4. NO SOB, DISTRESS OR PAIN NOTED. ON 3L N/C. WEN CATH IN PLACE DRAINING YELLOW URINE TO GRAVITY. GRICELDA MIDLINE SALINE LOCKED. MID STERNAL INCISION IS OPEN TO AIR. NO DRAINAGE NOTED. LOWER CHEST DRESSING WHERE CHEST TUBES REMOVED ARE C/D/I. EDUCATED ON THE NEED FOR AMBULATION. PATIENT SAID SHE WILL TRY WALKING AFTER BREATHING TREATMENT. PHYSICAL ASSESSMENT COMPLETED, SEE INTERVENTIONS. INSTRUCTED ON POC AND TO CALL FOR ASSISTS NEEDED. BED IS IN THE LOWEST POSITION WITH SIDE RAILS UP X2, CALL LIGHT IS WITHIN REACH.
--- NOTE | 2019-06-17 20:30 | NUR ---
AMBULATION ATTEMPT PATIENT CONNECTED TO PORTABLE MONITOR AND PORTABLE 02. WITH WALKER WALKED 10 STEPS OUT OF THE ROOM AND SAID "I CAN'T DO IT ANYMORE". PATIENT WALKED BACK TO BED BY DARRON PEARCE.
[2019-06-18 03:52] VITALS: BP 125/60
--- NOTE | 2019-06-18 04:40 | NUR ---
MORNING HYGIENE CARE FULL BED BATH PERFORMED WITH CHG WIPES. GOWN CHANGED. CHEST DRESSINGS CHANGED. PARTIAL LINEN CHANGE. PATIENT REPOSITIONED FOR COMFORT. TOLERATED IT WELL. DID NOT WANT TO AMBULATE AT THIS TIME.
[2019-06-18 05:17] LABS: INR 2.54 (0.9-1.15)
[2019-06-18] MEDS: ACETYLCYSTEINE 10 %(100MG/ML) SOL 4ML NEB SCH ×3 (05:56→23:07)
[2019-06-18] MEDS: ALBUTEROL SULF 2.5 MG/0.5ML(0.5%) NEB SOLN NEB SCH ×5 (05:56→23:07)
[2019-06-18] MEDS: IPRATROPIUM BROM 0.5 MG/2.5ML INH SOL NEB SCH ×5 (05:56→23:07)
[2019-06-18] MEDS: ACCU-CHEK COMFORT CURVE STRIP VI SCH ×3 (06:33→17:34)
[2019-06-18] MEDS: InsuLIN REG 1unit/0.01ml Soln (100units/ml) SC SCH ×3 (06:34→17:34)
[2019-06-18] MEDS: FUROSEMIDE 20 MG TAB PO SCH ×2 (06:35→17:33)
--- NOTE | 2019-06-18 07:17 | NUR ---
END OF SHIFT REPORT GIVEN AND CARE ENDORSED TO TAMIKA WILLARD.
--- NOTE | 2019-06-18 07:30 | NUR ---
Opening Shift Note Assumed care of patient, awake and alert, sitting on the chair. No S/S of distress/SOB or chest pain. Instructed on POC and to call for assist PRN, will continue to monitor for changes Q1hr and PRN. Pulse of both feet checked by using Doppler, numb both feet, feeling pain right leg and heel.
[2019-06-18 08:00] VITALS: BP 97/67
--- NOTE | 2019-06-18 08:00 | NUR ---
IS 10 times around 500 ml each breath.
[2019-06-18] MEDS: POTASSIUM EFFERVESENT TAB 25 MEQ GT SCH ×2 (09:17→21:36)
[2019-06-18] MEDS: FLUCONAZOLE 100 MG TAB PO SCH (09:18)
[2019-06-18] MEDS: PANTOPRAZOLE 40 MG TAB PO SCH (09:18)
[2019-06-18] MEDS: ASCORBIC ACID 500 MG TAB PO SCH (09:19)
[2019-06-18] MEDS: ASPirin 81 mg TAB PO SCH (09:19)
[2019-06-18] MEDS: AMIODARONE HCL 200 MG TAB PO SCH ×2 (09:20→21:37)
[2019-06-18] MEDS: CARVEDILOL 3.125 MG TAB PO SCH ×2 (09:21→21:38)
[2019-06-18] MEDS: CHLORHEXIDINE 0.12% ORAL rinse 473ML MT SCH ×2 (09:22→21:37)
[2019-06-18] MEDS: HYDROcodone-ACET 5/325MG TAB PO PRN (09:25)
--- NOTE | 2019-06-18 09:30 | NUR ---
Patient walked half round of nursing station with PT.
--- NOTE | 2019-06-18 10:28 | NUR ---
Families at the bedside. Patient sitting on the chair talking to her families.
[2019-06-18 11:55] VITALS: BP 96/51
--- NOTE | 2019-06-18 11:59 | NUR ---
Dr. Purdy at the bedside, seen and examined patient at this time, plan of care discussed with patient, will continue Warfarin and monitor.
--- NOTE | 2019-06-18 12:15 | NUR ---
Patient walking with PT, tolerated well.
--- NOTE | 2019-06-18 13:30 | NUR ---
Patient sitting up on the chair, had around 75% of Lunch. No complaining of pain or SOB. IS exercise ever 1 hr, patient made aware, 500 ml each breathing, O2 saturation 90-95% with O2 NC 3 LPM.
--- NOTE | 2019-06-18 15:00 | NUR ---
Patient taking a nap on the chair.
[2019-06-18 16:00] VITALS: BP 93/48
--- NOTE | 2019-06-18 16:40 | NUR ---
Encouraging patient for walking, patient standing up with 2 assists by using walker, stated that having dizziness, went to bed and sitting up at the edge of the bed. Would like to sit for awhile and possible to go back on the chair for Dinner. Percussion provided, deep breathing and using IS. Will continue to monitor and care.
[2019-06-18] MEDS ORDERED: WARFARIN SODIUM 2 MG TAB PO ONE (17:00)
--- NOTE | 2019-06-18 18:00 | NUR ---
Patient sitting at the edge of the bed, sleepy, stated that waiting for Dinner after finished Dinner, will go back to the bed.
--- NOTE | 2019-06-18 18:31 | NUR ---
Patient walked from her room to nursing counter and went back, sitting on the edge of the bed for having Dinner. Will continue to monitor and care. No complaining of chest pain or pain noted, continue O2 NC 3 LPM, HR 65-70 /min, no fever, SBP 90-105 mmHg, no aspiration noted.
--- NOTE | 2019-06-18 19:41 | NUR ---
received pt from day rn poc reviewed
--- NOTE | 2019-06-18 19:50 | NUR ---
pt observed resting with hob up resp even and unlabored, denies pain or discomfort, call light within reach all questions and concerns addressed, bed alarm intact for pts safety
[2019-06-18 20:00] VITALS: BP 138/89
[2019-06-18 22:42] VITALS: BP 106/52
--- NOTE | 2019-06-18 23:01 | NUR ---
pt awoke sitting on side of bed, no c/o discomfort
[2019-06-19] VITALS: BP 106/56
[2019-06-19] MEDS: ACCU-CHEK COMFORT CURVE STRIP VI SCH ×5 (00:39→23:57)
[2019-06-19] MEDS: InsuLIN REG 1unit/0.01ml Soln (100units/ml) SC SCH ×5 (00:40→23:57)
--- NOTE | 2019-06-19 01:35 | NUR ---
resting with eyes closed, non productive cough
--- NOTE | 2019-06-19 04:15 | NUR ---
awoke assisted to side of bed no c/o pain or discomfort
--- NOTE | 2019-06-19 05:01 | NUR ---
back to bed no c/o discomfort or pain
[2019-06-19] MEDS: FUROSEMIDE 20 MG TAB PO SCH ×2 (06:01→17:32)
[2019-06-19] MEDS: IPRATROPIUM BROM 0.5 MG/2.5ML INH SOL NEB SCH ×5 (06:15→22:53)
[2019-06-19] MEDS: ACETYLCYSTEINE 10 %(100MG/ML) SOL 4ML NEB SCH ×3 (06:15→22:54)
[2019-06-19] MEDS: ALBUTEROL SULF 2.5 MG/0.5ML(0.5%) NEB SOLN NEB SCH ×5 (06:15→22:54)
--- NOTE | 2019-06-19 06:26 | NUR ---
resp therapist at bedside no c/o discomfort
[2019-06-19 06:28] LABS: Basophils # (auto) 0.1 uL; Basophils % (auto) 1.2 % (0.0-2.0); Eosinophils # (auto) 0.2 uL; Eosinophils % (auto) 3.9 % (0.0-7.0); Hematocrit 25.8 % (36.0-46.0); Hemoglobin 8.7 g/dL (12.2-16.2); Lymphocytes # (auto) 1.1 uL; Lymphocytes % (auto) 17.6 % (10.0-50.0); Mean Corpuscular Hemoglobin 30.9 pg (28.0-32.0); Mean Corpuscular Hgb Conc. 33.7 g/dL (32.0-36.0); Mean Corpuscular Volume 91.5 fL (80.0-100.0); Monocytes # (auto) 0.5 uL; Monocytes % (auto) 7.7 % (0.0-12.0); Neutrophils # (auto) 4.4 uL; Neutrophils % (auto) 69.6 % (37.0-80.0); Nucleated Red Blood Cells % 0.1 %; Platelet Count (auto) 228 10^3/uL (140-450); Red Blood Cells 2.82 10^6/uL (4.0-5.20); Red Cell Distribution Width 14.4 % (11.8-14.3); White Blood Cell 6.3 10^3/uL (4.4-10.8)
[2019-06-19 06:46] LABS: INR 3.07 (0.9-1.15); Partial Thromboplastin Time 36.4 sec (23.64-32.05)
--- NOTE | 2019-06-19 06:54 | NUR ---
report given to am nurse poc reviewed
--- NOTE | 2019-06-19 07:30 | NUR ---
Opening Shift Note Assumed care of patient, awake and alert, watching TV at this time. No S/S of distress/SOB, pain 7/10 at right leg and right heel. Pulses at lower extremities checked by using Doppler, pulses noted strong both feet, still edema. Instructed on POC and to call for assist PRN, will continue to monitor for changes Q1hr and PRN.
[2019-06-19 07:50] VITALS: BP 94/49
--- NOTE | 2019-06-19 08:10 | NUR ---
Sitting at the edge of the bed for having breakfast. Her at the bedside.
[2019-06-19] MEDS: HYDROcodone-ACET 5/325MG TAB PO PRN ×2 (08:31→15:17)
[2019-06-19] MEDS: POTASSIUM EFFERVESENT TAB 25 MEQ GT SCH ×2 (08:33→21:57)
[2019-06-19] MEDS: AMIODARONE HCL 200 MG TAB PO SCH ×2 (08:34→21:56)
[2019-06-19] MEDS: ASPirin 81 mg TAB PO SCH (08:35)
[2019-06-19] MEDS: FLUCONAZOLE 100 MG TAB PO SCH (08:35)
[2019-06-19] MEDS: ASCORBIC ACID 500 MG TAB PO SCH (08:36)
[2019-06-19] MEDS: CARVEDILOL 3.125 MG TAB PO SCH ×2 (08:36→21:56)
[2019-06-19] MEDS: PANTOPRAZOLE 40 MG TAB PO SCH (08:36)
[2019-06-19] MEDS: CHLORHEXIDINE 0.12% ORAL rinse 473ML MT SCH ×2 (08:39→21:56)
--- NOTE | 2019-06-19 09:20 | NUR ---
Patient waked with PT 1 round of nursing station, tolerated well, HR 70-75 /min, O2 saturation 94-95% with O2 NC 3 LPM. Went back to the chair. Addendum: 06/19/19 at 1013 by ADRIANA VILLAFUERTE RN RN "Walked" instead of "waked"
--- NOTE | 2019-06-19 10:11 | NUR ---
Patient sitting on the chair, elevated her feet on the stand, stated that will take a nap, her went home.
--- NOTE | 2019-06-19 11:30 | NUR ---
Patient walked 1 round of nursing station, tolerated well. Then went back to the chair.
[2019-06-19 12:00] VITALS: BP 104/47
--- NOTE | 2019-06-19 12:35 | NUR ---
MD VISIT PT SEEN AND EXAMINED BY DR LOPEZ. MADE HIM AWARE OF DOWNGRADE ORDERS TO TELE STATUS BY DR PHAM. HE IS IN AGREEMENT. NO NEW ORDERS.
--- NOTE | 2019-06-19 13:25 | NUR ---
Haddad catheter dc'd Order to discontinue haddad catheter. Haddad dc'd with clean technique following deflation of balloon. Patient tolerated well with no complaints of pain. Continue care. Urine 1000 ml.
--- NOTE | 2019-06-19 13:54 | NUR ---
[facility] pt transferred to floor SHERMAN,MALVIN transferred to 202 via wheel chair on quality assurance monitor body (tele 32) and portable 02. All patient medications and personal belongings transferred with patient to receiving floor. Patient care transferred to Summer RN. Called and left the message to her daughter regarding transfer to Telemetry unit.
--- NOTE | 2019-06-19 14:15 | NUR ---
T[facility] transfer Received patient from TYRONE after receiving report. Patient sitting up in wheelchair, states she is comfortable and does not want to get into bed. Patient is awake, alert and oriented x4. No signs or symptoms of distress noted at this time. Patient denies pain at this time. Patient on 4L NC, respirations even and unlabored. Patient has non-productive cough. Patient on radiation monitor #32, sinus rhythm 66. Reviewed plan of care with patient, patient verbalized understanding. Call light within reach. Will continue to monitor Q1 hour and PRN.
--- NOTE | 2019-06-19 15:33 | NUR ---
Nutrition Consult/Follow-up Notes Wt.: 103.7 kg Pt's awake and oriented when rounded this am. per pt no N.v with fair appetite. per pt someone has spoken to her on warfarin before and FDI. pt with no distress noted. Pt's currently on Consistent Low Carb: 45 gms/meal diet with inadequate PO intake aeb <50% ave. consumed meals (x6) in last 2.5 days. Est. Needs: 1750 kcal to 1850 kcal (18-20 kcal/kgBW), 78 gms to 101 gms pro (1.0-1.3 gms/kgIBW: 78 kg). Will continue to monitor pertinent labs and reassess nutrient need prn Labs: GLU 148 H, rest lab wnl for today Skin: Eh scale 17, mod risk, anterior medial chest incision dry and intact, right heel DTI per core finisher. Pls refer to latest residential sales associate's notes for further details re: tx plans. GI: Pt had 1 BM on 06/17 per core finisher. PES: Resolved: Increased nutrient needs r/t acute/chronic medical condition aeb s/p heart surgery, intubated, sedated, NPO. Altered nutrition related lab values r/t current/chronic medical condition aeb hyperglycemia, hyponatremia, elev. BUN, Trop I. HbA1c, hypocalcemia Obesity r/t food intake more than body requirement aeb 165% IBW, BMI 34.8 kg/m2 and increased body adiposity Will continue to monitor PO intake, skin status, pertinent labs and weight trend. F/u in 3 to 5 days. Rec.: 1.) Consider Consistent Standard Carb: 60 gms/meal, Cardiac: 2 gms Na, Low Chol, Low Fat diet. 2.) Continue close supervision and feeding assistance prn during meals. 3.) Consider daily MVI with minerals and Asc acid 500 mgs BID. 4.) If pt's PO intake remains inadequate (<75%), consider Glucerna Shakes 1 carton BID. 5.) Refer pt to CDE/RD for further nutrition education and weight monitoring upon discharge. 6.) Continue current plan of care
--- NOTE | 2019-06-19 16:00 | NUR ---
Rounds Patient resting in chair at bedside. No signs or symptoms of distress noted at this time. Patient denies pain at this time. Will continue to monitor Q1 hour and PRN.
[2019-06-19 16:45] VITALS: BP 114/76
--- NOTE | 2019-06-19 19:28 | NUR ---
Closing Note Report given to maintenance technician 2nd shift RN. No signs or symptoms of distress noted at this time.
--- NOTE | 2019-06-19 19:30 | NUR ---
Opening Assumed care of patient, awake and alert. No S/S of distress/SOB or pain. Insructed on POC and to callfor assist PRN, will continue to monitor for changes Q1hr and PRN. Patient sitting in recliner, call light within reach. Room free of clutter, BSC close to patient.
--- NOTE | 2019-06-19 20:00 | NUR ---
BSC Assisted patient to BSC for urination and back to recliner with assist from [facility] [employer]. Patient tolerated well. Will continue to monitor
[2019-06-19 20:59] VITALS: BP 107/58
--- NOTE | 2019-06-20 01:30 | NUR ---
ACTIVITY Patient was assisted by primary RN and Lloyd NICOLAS to bedside commode for urination. Patient voided clear, yellow urine. Patient was assisted to bed, tolerated well. Bed in lowest, locked position, side rails x2 up, call light within reach. Will continue to monitor
[2019-06-20] MEDS: ACETAMINOPHEN 650 mg PER 20 mL UD PO PRN (04:30)
[2019-06-20 05:19] VITALS: BP 119/45
[2019-06-20] MEDS: InsuLIN REG 1unit/0.01ml Soln (100units/ml) SC SCH ×3 (05:42→17:36)
[2019-06-20] MEDS: ACCU-CHEK COMFORT CURVE STRIP VI SCH ×3 (05:42→17:36)
[2019-06-20] MEDS: FUROSEMIDE 20 MG TAB PO SCH ×2 (05:42→17:36)
[2019-06-20 05:44] LABS: INR 3.1 (0.9-1.15)
[2019-06-20] MEDS: IPRATROPIUM BROM 0.5 MG/2.5ML INH SOL NEB SCH ×3 (05:44→15:28)
[2019-06-20] MEDS: ACETYLCYSTEINE 10 %(100MG/ML) SOL 4ML NEB SCH ×2 (05:44→15:28)
[2019-06-20] MEDS: ALBUTEROL SULF 2.5 MG/0.5ML(0.5%) NEB SOLN NEB SCH ×3 (05:44→15:28)
--- NOTE | 2019-06-20 07:30 | NUR ---
Opening Shift Note Assumed care of patient, awake, alert, and oriented. No S/S of distress/SOB or pain. Patient sitting in chair. Instructed on POC and to call for assist PRN with call light within reach. Will continue to monitor for changes Q1hr and PRN.
[2019-06-20 09:08] VITALS: BP 97/49
[2019-06-20] MEDS: POTASSIUM EFFERVESENT TAB 25 MEQ GT SCH (10:02)
[2019-06-20] MEDS: ASPirin 81 mg TAB PO SCH (10:03)
[2019-06-20] MEDS: FLUCONAZOLE 100 MG TAB PO SCH (10:03)
[2019-06-20] MEDS: ASCORBIC ACID 500 MG TAB PO SCH (10:03)
[2019-06-20] MEDS: PANTOPRAZOLE 40 MG TAB PO SCH (10:03)
[2019-06-20] MEDS: CHLORHEXIDINE 0.12% ORAL rinse 473ML MT SCH (10:05)
--- NOTE | 2019-06-20 10:45 | NUR ---
MD ROUNDS DR PHAM AT BEDSIDE DISCUSSING POC WITH PATIENT AND FAMILY. ALL QUESTIONS/CONCERNS ANSWERED. WILL CONTINUE TO MONITOR
[2019-06-20] MEDS: CARVEDILOL 3.125 MG TAB PO SCH (12:04)
[2019-06-20] MEDS: AMIODARONE HCL 200 MG TAB PO SCH (12:04)
--- NOTE | 2019-06-20 12:18 | NUR ---
Discharge planning per consult, patient has orders to dc to SNF. Referral sent to [facility]. Placed a follow up call, spoke with [facility] and was advised that they will accept this patient into room [address] Cruz. Transportation was arranged via [email or web address] with [facility] and scheduled picking machine operator is at 6pm. Nurse Wilson was advised of the dc plan. Addendum: 06/20/19 at 1223 by GIUSEPPE JUAN Amended: Links added.
[2019-06-20 12:52] VITALS: BP 104/57
[2019-06-20] MEDS: HYDROcodone-ACET 5/325MG TAB PO PRN (15:10)
[2019-06-20 16:05] VITALS: BP 98/63
--- NOTE | 2019-06-20 16:48 | NUR ---
NANCY SHAW CONTINUUM OF ACID ADJUSTER IN TO SEE PATIENT AND GIVE HER INFORMATION ON Osito YEE AND DR. STRICKLAND
[2019-06-20 16:58] VITALS: BP 111/62
--- NOTE | 2019-06-20 18:25 | NUR ---
Discharge instructions given as ordered. All questions and concerns addressed. Patient verbalized understanding. IV removed with catheter intact, pressure dressing applied. Telemetry unit returned to ICU. Report given to MATTHEW AT [facility] IN [place] . Patient transported by [facility] with all personal belongings. No distress/SOB noted at time of departure.
--- NOTE | 2019-06-20 19:18 | NUR ---
FAXED SPOKE TO MATTHEW AT [facility]. FAXED MED REC TO [facility] AT
== END 2019-06-20 18:25 | DRG 266 ==
LOC: ER 07:24 → TELE 07:25 → TELE-WESTW 23:34 → ICU WEST 06-03 15:53 → DOU IN ICU 06-17 14:31 → CENTRAL 06-19 14:15 → TELE-CENTR 06-19 19:21
PROVIDERS: ADMIT Internal Medicine; ATTEND Internal Medicine Pulmonary Disease
PROC: 5A02210 Assistance with Cardiac Output using Balloon Pump, Continuous (ICD-10-PCS; 2019-06-03)
PROC: 4A023N8 Measurement of Cardiac Sampling and Pressure, Bilateral, Percutaneous Approach (ICD-10-PCS; 2019-06-03)
PROC: B2111ZZ Fluoroscopy of Multiple Coronary Arteries using Low Osmolar Contrast (ICD-10-PCS; 2019-06-03)
PROC: B2151ZZ Fluoroscopy of Left Heart using Low Osmolar Contrast (ICD-10-PCS; 2019-06-03)
PROC: 5A09357 Assistance with Respiratory Ventilation, Less than 24 Consecutive Hours, Continuous Positive Airway Pressure (ICD-10-PCS; 2019-06-03)
PROC: B4101ZZ Fluoroscopy of Abdominal Aorta using Low Osmolar Contrast (ICD-10-PCS; 2019-06-03)
PROC: 5A09357 Assistance with Respiratory Ventilation, Less than 24 Consecutive Hours, Continuous Positive Airway Pressure (ICD-10-PCS; 2019-06-05)
PROC: 02100Z9 Bypass Coronary Artery, One Artery from Left Internal Mammary, Open Approach (ICD-10-PCS; 2019-06-06)
PROC: 0210093 Bypass Coronary Artery, One Artery from Coronary Artery with Autologous Venous Tissue, Open Approach (ICD-10-PCS; 2019-06-06)
PROC: 06BQ0ZZ Excision of Left Saphenous Vein, Open Approach (ICD-10-PCS; 2019-06-06)
PROC: 5A1221Z Performance of Cardiac Output, Continuous (ICD-10-PCS; 2019-06-06)
PROC: 30233M1 Transfusion of Nonautologous Plasma Cryoprecipitate into Peripheral Vein, Percutaneous Approach (ICD-10-PCS; 2019-06-06)
PROC: 30233N1 Transfusion of Nonautologous Red Blood Cells into Peripheral Vein, Percutaneous Approach (ICD-10-PCS; 2019-06-06)
PROC: 30233R1 Transfusion of Nonautologous Platelets into Peripheral Vein, Percutaneous Approach (ICD-10-PCS; 2019-06-06)
PROC: 30233K1 Transfusion of Nonautologous Frozen Plasma into Peripheral Vein, Percutaneous Approach (ICD-10-PCS; 2019-06-06)
PROC: 02RF38Z Replacement of Aortic Valve with Zooplastic Tissue, Percutaneous Approach (ICD-10-PCS; principal; 2019-06-06 09:31)
PROC: 5A1945Z Respiratory Ventilation, 24-96 Consecutive Hours (ICD-10-PCS; 2019-06-07)
PROC: 0BH17EZ Insertion of Endotracheal Airway into Trachea, Via Natural or Artificial Opening (ICD-10-PCS; 2019-06-07)
PROC: 5A1935Z Respiratory Ventilation, Less than 24 Consecutive Hours (ICD-10-PCS; 2019-06-09)
PROC: 5A1935Z Respiratory Ventilation, Less than 24 Consecutive Hours (ICD-10-PCS; 2019-06-10)
PROC: 05HY33Z Insertion of Infusion Device into Upper Vein, Percutaneous Approach (ICD-10-PCS; 2019-06-10)
PROC: 5A1935Z Respiratory Ventilation, Less than 24 Consecutive Hours (ICD-10-PCS; 2019-06-11)
PROC: 5A1935Z Respiratory Ventilation, Less than 24 Consecutive Hours (ICD-10-PCS; 2019-06-12)
PROC: 5A1935Z Respiratory Ventilation, Less than 24 Consecutive Hours (ICD-10-PCS; 2019-06-13)
PROC: 5A1935Z Respiratory Ventilation, Less than 24 Consecutive Hours (ICD-10-PCS; 2019-06-14)
PROC: 047P3ZZ Dilation of Right Anterior Tibial Artery, Percutaneous Approach (ICD-10-PCS; 2019-06-15)
PROC: 047R3ZZ Dilation of Right Posterior Tibial Artery, Percutaneous Approach (ICD-10-PCS; 2019-06-15)
PROC: 047T3ZZ Dilation of Right Peroneal Artery, Percutaneous Approach (ICD-10-PCS; 2019-06-15)
PROC: 5A1935Z Respiratory Ventilation, Less than 24 Consecutive Hours (ICD-10-PCS; 2019-06-15)
PROC: 5A1935Z Respiratory Ventilation, Less than 24 Consecutive Hours (ICD-10-PCS; 2019-06-16)
PROC: 5A1935Z Respiratory Ventilation, Less than 24 Consecutive Hours (ICD-10-PCS; 2019-06-17)
DX: I21.4 Non-ST elevation (NSTEMI) myocardial infarction (principal); I50.43 Acute on chronic combined systolic (congestive) and diastolic (congestive) heart failure; J18.1 Lobar pneumonia, unspecified organism; R57.0 Cardiogenic shock; J96.01 Acute respiratory failure with hypoxia; L03.115 Cellulitis of right lower limb; E87.2 Acidosis; J44.0 Chronic obstructive pulmonary disease with (acute) lower respiratory infection; J45.901 Unspecified asthma with (acute) exacerbation; D62 Acute posthemorrhagic anemia; J96.12 Chronic respiratory failure with hypercapnia; J91.8 Pleural effusion in other conditions classified elsewhere; E87.1 Hypo-osmolality and hyponatremia; I25.110 Atherosclerotic heart disease of native coronary artery with unstable angina pectoris; J45.909 Unspecified asthma, uncomplicated; E11.65 Type 2 diabetes mellitus with hyperglycemia; G89.29 Other chronic pain; I25.5 Ischemic cardiomyopathy; I35.0 Nonrheumatic aortic (valve) stenosis; M54.9 Dorsalgia, unspecified; E11.51 Type 2 diabetes mellitus with diabetic peripheral angiopathy without gangrene; D69.6 Thrombocytopenia, unspecified; E83.42 Hypomagnesemia; E83.51 Hypocalcemia; E66.9 Obesity, unspecified; I48.91 Unspecified atrial fibrillation; K57.30 Diverticulosis of large intestine without perforation or abscess without bleeding; Z79.01 Long term (current) use of anticoagulants; Z80.0 Family history of malignant neoplasm of digestive organs; Z68.37 Body mass index [BMI] 37.0-37.9, adult; Z87.891 Personal history of nicotine dependence; Z95.1 Presence of aortocoronary bypass graft; Z82.5 Family history of asthma and other chronic lower respiratory diseases; Z98.62 Peripheral vascular angioplasty status
CPT/HCPCS: 33967; 36415; 36600; 37228; 71045; 71260; 74177; 75630; 76881; 80048; 80053; 80162; 80202; 81001; 82310; 82550; 82805; 82962; 83036; 83605; 83735; 83880; 84100; 84132; 84443; 84484; 85007; 85025; 85027; 85576; 85610; 85652; 85730; 86141; 86160; 86850; 86900; 86901; 86920; 87040; 87070; 87077; 87081; 87205; 92610; 93005; 93306; 93460; 93886; 93926; 93970; 93971; 94002; 94003; 94640; 94660; 96365; 96367; 96375; 96376; 97110; 97116; 97163; 97530; 99152; 99153; 99291; A4565; C1751; C1768; C9113; G0378; J0153; J0282; J0610; J0696; J1100; J1450; J1642; J1644; J1815; J1956; J2250; J2440; J2543; J2704; J3430; J3480; J3490; J7042; J7060; P9047

== ENCOUNTER 2022-06-18 20:04 | Emergency (ER) | payer MEDICARE ==
[~2022-06-18] VITALS: Ht 170.2 cm; Wt 91.0 kg
[2022-06-18] MEDS ORDERED: IOHEXOL 300 MG/ML 100ML BOTTLE IJ ONE (20:35)
[2022-06-18 22:36] LABS: Basophils # (auto) 0.1 10 ^3/uL (0-0.2); Basophils % (auto) 0.4 % (0.0-2.0); Eosinophils # (auto) 0 10 ^3/uL (0-0.8); Eosinophils % (auto) 0.1 % (0.0-7.0); Hematocrit 32.5 % (36.0-46.0); Hemoglobin 10.6 g/dL (12.2-16.2); Lymphocytes # (auto) 1.4 10 ^3/uL (0.4-5.4); Lymphocytes % (auto) 9.7 % (10.0-50.0); Mean Corpuscular Hemoglobin 31.1 pg (28.0-32.0); Mean Corpuscular Hgb Conc. 32.7 g/dL (32.0-36.0); Mean Corpuscular Volume 95.1 fL (80.0-100.0); Monocytes # (auto) 0.8 10 ^3/uL (0-1.3); Monocytes % (auto) 5.7 % (0.0-12.0); Neutrophils # (auto) 11.9 10 ^3/uL (1.6-8.6); Neutrophils % (auto) 84.1 % (37.0-80.0); Red Blood Cells 3.41 10^6/uL (4.0-5.20); Red Cell Distribution Width 16.4 % (11.8-14.3); White Blood Cell 14.2 10^3/uL (4.4-10.8)
[2022-06-18 22:52] LABS: Lactic Acid w/Reflex 2.1 mmol/L (0.4-2.0)
[2022-06-18 22:56] LABS: Alanine Aminotransferase 14 U/L (13-56); Alkaline Phosphatase 118 U/L (45-117); Anion Gap 13 (5-15); Aspartate Aminotransferase 23 U/L (15-37); BUN/Creatinine Ratio 16.1; Bilirubin, Total 0.4 mg/dL (0.2-1.0); Blood Urea Nitrogen 25 mg/dL (7-18); Calcium 7.9 mg/dL (8.5-10.1); Carbon Dioxide 19 mmol/L (21-32); Chloride 107 mmol/L (98-107); GFR African American 42 mL/min; GFR Non-African American 35 mL/min; Glucose 123 mg/dL (74-106); Potassium 4.8 mmol/L (3.5-5.1); Sodium 139 mmol/L (136-145); Total Protein 6.6 g/dL (6.4-8.2)
[2022-06-18 22:57] LABS: Albumin 2.2 g/dL (3.4-5.0); Lipase 50 U/L (73-393)
[2022-06-18 23:58] VITALS: BP 118/42
[2022-06-19] MEDS ORDERED: MILK OF MAGNESIA 30ML SUSP PO ONE (01:00)
[2022-06-19] MEDS ORDERED: POLYETHYLENE GLYCOL 17 GM PWDR PO ONE (01:00)
[2022-06-19] MEDS ORDERED: SENNA 8.6 MG TAB PO ONE (01:00)
[2022-06-19] MEDS ORDERED: DOCUSATE SOD 100 MG CAP PO ONE (01:00)
[2022-06-19] MEDS ORDERED: DOCU-94 PO (01:10)
== END 2022-06-19 02:04 | disposition home or self-care (01) ==
LOC: EDUNIT# 20:04 → ER 20:04
DX: K59.00 Constipation, unspecified (principal); N17.9 Acute kidney failure, unspecified; J90 Pleural effusion, not elsewhere classified; J45.909 Unspecified asthma, uncomplicated
CPT/HCPCS: 36415; 71045; 74176; 80053; 83605; 83690; 84484; 85025; 99285; Q9967

== ENCOUNTER 2022-07-21 18:25 | Inpatient (IN) | payer MEDICARE ==
[~2022-07-21] VITALS: Ht 165.1 cm; Wt 90.1 kg
[~2022-07-21 18:25] MED LIST: DOCU-94 PO
[2022-07-21 21:12] LABS: Basophils # (auto) 0.1 10 ^3/uL (0-0.2); Basophils % (auto) 0.8 % (0.0-2.0); Eosinophils # (auto) 0.2 10 ^3/uL (0-0.8); Eosinophils % (auto) 1.8 % (0.0-7.0); Hematocrit 36.1 % (36.0-46.0); Hemoglobin 11.9 g/dL (12.2-16.2); Lymphocytes # (auto) 2.1 10 ^3/uL (0.4-5.4); Lymphocytes % (auto) 21.3 % (10.0-50.0); Mean Corpuscular Hemoglobin 32.7 pg (28.0-32.0); Mean Corpuscular Volume 99.3 fL (80.0-100.0); Monocytes # (auto) 0.5 10 ^3/uL (0-1.3); Monocytes % (auto) 5.1 % (0.0-12.0); Neutrophils # (auto) 7.1 10 ^3/uL (1.6-8.6); Nucleated Red Blood Cells % 0.3 %; Red Blood Cells 3.64 10^6/uL (4.0-5.20); Red Cell Distribution Width 16.5 % (11.8-14.3); White Blood Cell 10.1 10^3/uL (4.4-10.8)
[2022-07-21 21:15] LABS: Albumin 2.3 g/dL (3.4-5.0); Calcium 8.2 mg/dL (8.5-10.1); Magnesium 2.4 mg/dL (1.6-2.6); Potassium 4.7 mmol/L (3.5-5.1)
[2022-07-21 21:22] LABS: Bilirubin, Total 0.4 mg/dL (0.2-1.0); Total Protein 6.9 g/dL (6.4-8.2)
[2022-07-22] MEDS ORDERED: LACTATED RINGER'S 1,000 ML IV ONE (01:30)
[2022-07-22 05:03] LABS: Urine Bacteria NONE SEEN /hpf (None Seen); Urine Blood Negative /uL (Negative); Urine Hyaline Cast MOD /lpf (0 - 2); Urine Specific Gravity 1.021 (1.001-1.035); Urine WBC 72 /hpf (0 - 5)
[2022-07-22] MEDS: LEVOTHYROXINE SODIUM 50 MCG TAB PO SCH (06:58)
[2022-07-22] MEDS: ACETAMINOPHEN 325 MG TAB PO PRN (07:00)
[2022-07-22] MEDS: cefTRIAXone 1GM/50ML D5W 50 ML IV SCH (09:27)
[2022-07-22] MEDS: PANTOPRAZOLE 40 MG TAB PO SCH (10:57)
[2022-07-22] MEDS: HYDROcodone-ACET 5/325MG TAB PO PRN ×2 (13:20→19:48)
[2022-07-22] MEDS: ATORVASTATIN 20 MG TAB PO SCH (21:43)
[2022-07-22 22:48] VITALS: BP 108/55
[2022-07-23 05:05] VITALS: BP 97/58
[2022-07-23] MEDS: LEVOTHYROXINE SODIUM 50 MCG TAB PO SCH (05:45)
[2022-07-23] MEDS: HYDROcodone-ACET 5/325MG TAB PO PRN ×2 (05:45→22:49)
[2022-07-23 07:23] LABS: BUN/Creatinine Ratio 18.2; Calcium 7.5 mg/dL (8.5-10.1)
[2022-07-23 07:31] LABS: Potassium 4.1 mmol/L (3.5-5.1)
[2022-07-23 08:30] VITALS: BP 138/89
[2022-07-23] MEDS: ACETAMINOPHEN 325 MG TAB PO PRN ×2 (09:13→18:16)
[2022-07-23] MEDS: PANTOPRAZOLE 40 MG TAB PO SCH (09:14)
[2022-07-23] MEDS: cefTRIAXone 1GM/50ML D5W 50 ML IV SCH (09:16)
[2022-07-23] MEDS: SODIUM CHLORIDE 0.9% 1,000 ML IV SCH ×2 (11:00→18:00)
[2022-07-23 13:00] VITALS: BP 129/65
[2022-07-23] MEDS: ONDANSETRON HCL 4 MG/2 ML VIAL IV PRN (13:49)
[2022-07-23 16:51] VITALS: BP 109/84
[2022-07-23] MEDS: ATORVASTATIN 20 MG TAB PO SCH (21:04)
[2022-07-23 22:00] VITALS: BP 132/48
[2022-07-24] MEDS: ACETAMINOPHEN 325 MG TAB PO PRN (03:08)
[2022-07-24] MEDS: SODIUM CHLORIDE 0.9% 1,000 ML IV SCH ×3 (03:08→18:00)
[2022-07-24] MEDS: HYDROcodone-ACET 5/325MG TAB PO PRN ×3 (04:56→18:30)
[2022-07-24 05:00] VITALS: BP 105/51
[2022-07-24] MEDS: LEVOTHYROXINE SODIUM 50 MCG TAB PO SCH (06:01)
[2022-07-24] MEDS: cefTRIAXone 1GM/50ML D5W 50 ML IV SCH (09:13)
[2022-07-24 09:27] VITALS: BP 115/71
[2022-07-24 12:27] VITALS: BP 126/67
[2022-07-24 16:28] VITALS: BP 116/62
[2022-07-24] MEDS: ATORVASTATIN 20 MG TAB PO SCH (21:19)
[2022-07-25] MEDS: SODIUM CHLORIDE 0.9% 1,000 ML IV SCH ×3 (03:56→17:03)
[2022-07-25 05:00] VITALS: BP 141/78
[2022-07-25] MEDS: LEVOTHYROXINE SODIUM 50 MCG TAB PO SCH (06:12)
[2022-07-25] MEDS: ACETAMINOPHEN 325 MG TAB PO PRN (06:20)
[2022-07-25] MEDS: HYDROcodone-ACET 5/325MG TAB PO PRN ×2 (08:25→17:14)
[2022-07-25] MEDS: cefTRIAXone 1GM/50ML D5W 50 ML IV SCH (08:25)
[2022-07-25 08:30] VITALS: BP 122/66
[2022-07-25] MEDS: ONDANSETRON HCL 4 MG/2 ML VIAL IV PRN (11:00)
[2022-07-25 12:30] VITALS: BP 134/73
[2022-07-25] MEDS ORDERED: Ensure HIGH Protein Chocolate 8oz Bottle PO ONE (12:50)
[2022-07-25 16:32] VITALS: BP_SYST 134; BP_SYST 161; BP_DIAS 74; BP_DIAS 80
[2022-07-25] MEDS: Ensure HIGH Protein Chocolate 8oz Bottle PO SCH (18:30)
[2022-07-25] MEDS: ENOXAPARIN SOD 40 MG/0.4 ML SYRINGE SC SCH (18:43)
[2022-07-25 22:00] VITALS: BP 136/71
[2022-07-25] MEDS: ATORVASTATIN 20 MG TAB PO SCH (22:48)
[2022-07-26] MEDS: SODIUM CHLORIDE 0.9% 1,000 ML IV SCH ×3 (03:00→19:04)
[2022-07-26] MEDS: ACETAMINOPHEN 325 MG TAB PO PRN (04:11)
[2022-07-26 05:00] VITALS: BP 146/84
[2022-07-26] MEDS: LEVOTHYROXINE SODIUM 50 MCG TAB PO SCH (06:08)
[2022-07-26] MEDS ORDERED: VANCOMYCIN PER PHARMACY 1,000 MG IV SCH (07:30)
[2022-07-26] MEDS ORDERED: VANCOMYCIN 1GM/250ML 250 ML IV ONE (07:30)
[2022-07-26] MEDS: Ensure HIGH Protein Chocolate 8oz Bottle PO SCH ×3 (08:47→18:00)
[2022-07-26 08:54] VITALS: BP 138/77
[2022-07-26] MEDS: cefTRIAXone 1GM/50ML D5W 50 ML IV SCH (09:00)
[2022-07-26] MEDS: ENOXAPARIN SOD 40 MG/0.4 ML SYRINGE SC SCH (10:22)
[2022-07-26 10:58] LABS: Albumin 1.7 g/dL (3.4-5.0); BUN/Creatinine Ratio 10.6; Calcium 7.6 mg/dL (8.5-10.1); Phosphorus 2.4 mg/dL (2.5-4.90)
[2022-07-26 11:05] LABS: Potassium 5.1 mmol/L (3.5-5.1)
[2022-07-26 12:30] VITALS: BP 143/85
[2022-07-26] MEDS: HYDROcodone-ACET 5/325MG TAB PO PRN (15:30)
[2022-07-26 16:39] VITALS: BP 143/75
[2022-07-26 22:00] VITALS: BP 139/75
[2022-07-26] MEDS: ATORVASTATIN 20 MG TAB PO SCH ×2 (22:00→22:48)
[2022-07-27] MEDS: VANCOMYCIN 1GM/250ML 250 ML IV SCH ×2 (01:00→17:00)
[2022-07-27] MEDS: ACETAMINOPHEN 325 MG TAB PO PRN ×2 (02:44→19:46)
[2022-07-27] MEDS: SODIUM CHLORIDE 0.9% 1,000 ML IV SCH ×3 (03:05→19:00)
[2022-07-27 05:00] VITALS: BP 143/81
[2022-07-27 05:39] LABS: Basophils # (auto) 0.1 10 ^3/uL (0-0.2); Basophils % (auto) 0.9 % (0.0-2.0); Eosinophils # (auto) 0.5 10 ^3/uL (0-0.8); Eosinophils % (auto) 5.3 % (0.0-7.0); Hematocrit 28.9 % (36.0-46.0); Hemoglobin 9.4 g/dL (12.2-16.2); Lymphocytes # (auto) 2.6 10 ^3/uL (0.4-5.4); Lymphocytes % (auto) 27.1 % (10.0-50.0); Mean Corpuscular Hemoglobin 32.7 pg (28.0-32.0); Mean Corpuscular Hgb Conc. 32.6 g/dL (32.0-36.0); Mean Corpuscular Volume 100.3 fL (80.0-100.0); Monocytes # (auto) 0.7 10 ^3/uL (0-1.3); Neutrophils # (auto) 5.8 10 ^3/uL (1.6-8.6); Neutrophils % (auto) 59.7 % (37.0-80.0); Nucleated Red Blood Cells % 0.1 %; Red Blood Cells 2.88 10^6/uL (4.0-5.20); Red Cell Distribution Width 17.1 % (11.8-14.3); White Blood Cell 9.8 10^3/uL (4.4-10.8)
[2022-07-27 06:04] LABS: Albumin 1.9 g/dL (3.4-5.0); Calcium 7.8 mg/dL (8.5-10.1); Potassium 4.6 mmol/L (3.5-5.1)
[2022-07-27 06:09] LABS: BUN/Creatinine Ratio 13.9; Phosphorus 2.5 mg/dL (2.5-4.90)
[2022-07-27] MEDS: LEVOTHYROXINE SODIUM 50 MCG TAB PO SCH (06:09)
[2022-07-27] MEDS: Ensure HIGH Protein Chocolate 8oz Bottle PO SCH ×3 (07:57→18:00)
[2022-07-27 08:00] VITALS: BP 135/81
[2022-07-27] MEDS: cefTRIAXone 1GM/50ML D5W 50 ML IV SCH (09:08)
[2022-07-27] MEDS: HYDROcodone-ACET 5/325MG TAB PO PRN ×2 (09:10→22:26)
[2022-07-27] MEDS: ENOXAPARIN SOD 40 MG/0.4 ML SYRINGE SC SCH (09:32)
[2022-07-27 12:00] VITALS: BP 133/77
[2022-07-27 16:00] VITALS: BP 150/95
[2022-07-27 22:00] VITALS: BP 132/76
[2022-07-28] MEDS: SODIUM CHLORIDE 0.9% 1,000 ML IV SCH ×3 (03:43→12:09)
[2022-07-28 05:00] VITALS: BP 130/79
[2022-07-28] MEDS: LEVOTHYROXINE SODIUM 50 MCG TAB PO SCH (06:07)
[2022-07-28] MEDS: HYDROcodone-ACET 5/325MG TAB PO PRN ×3 (06:15→20:19)
[2022-07-28] MEDS: Ensure HIGH Protein Chocolate 8oz Bottle PO SCH ×3 (08:16→18:00)
[2022-07-28] MEDS: VANCOMYCIN 1GM/250ML 250 ML IV SCH (09:00)
[2022-07-28] MEDS: cefTRIAXone 1GM/50ML D5W 50 ML IV SCH (09:00)
[2022-07-28 09:50] VITALS: BP 108/69
[2022-07-28] MEDS: ENOXAPARIN SOD 40 MG/0.4 ML SYRINGE SC SCH (11:30)
[2022-07-28 14:15] VITALS: BP 126/80
[2022-07-28 17:35] VITALS: BP 123/72
[2022-07-28] MEDS: ATORVASTATIN 20 MG TAB PO SCH (21:18)
[2022-07-28 22:00] VITALS: BP 137/81
[2022-07-29] MEDS: HYDROcodone-ACET 5/325MG TAB PO PRN ×2 (02:31→09:23)
[2022-07-29] MEDS: SODIUM CHLORIDE 0.9% 1,000 ML IV SCH ×2 (02:32→04:57)
[2022-07-29 05:00] VITALS: BP 138/76
[2022-07-29] MEDS: LEVOTHYROXINE SODIUM 50 MCG TAB PO SCH (06:20)
[2022-07-29] MEDS: Ensure HIGH Protein Chocolate 8oz Bottle PO SCH (08:00)
[2022-07-29 09:00] VITALS: BP 137/72
[2022-07-29] MEDS: ENOXAPARIN SOD 40 MG/0.4 ML SYRINGE SC SCH (09:23)
[2022-07-29] MEDS: cefTRIAXone 1GM/50ML D5W 50 ML IV SCH (09:23)
== END 2022-07-29 09:30 | DRG 871 ==
LOC: EDBD 18:25 → ER 18:26 → OVERFLOW 07-22 06:50 → WEST WING 07-22 16:52
PROVIDERS: ADMIT Nurse Practitioner; ATTEND Family Medicine
PROC: 05HD33Z Insertion of Infusion Device into Right Cephalic Vein, Percutaneous Approach (ICD-10-PCS; principal; 2022-07-28)
PROC: B54MZZA Ultrasonography of Right Upper Extremity Veins, Guidance (ICD-10-PCS; 2022-07-28)
DX: A41.9 Sepsis, unspecified organism (principal); E43 Unspecified severe protein-calorie malnutrition; G93.41 Metabolic encephalopathy; N39.0 Urinary tract infection, site not specified; N17.9 Acute kidney failure, unspecified; J98.11 Atelectasis; N18.9 Chronic kidney disease, unspecified; J45.909 Unspecified asthma, uncomplicated; E78.5 Hyperlipidemia, unspecified; E11.22 Type 2 diabetes mellitus with diabetic chronic kidney disease; E86.0 Dehydration; I12.9 Hypertensive chronic kidney disease with stage 1 through stage 4 chronic kidney disease, or unspecified chronic kidney disease; Z20.822 Contact with and (suspected) exposure to COVID-19; E03.9 Hypothyroidism, unspecified; Z88.2 Allergy status to sulfonamides; Z95.1 Presence of aortocoronary bypass graft; Z68.33 Body mass index [BMI] 33.0-33.9, adult
CPT/HCPCS: 36415; 70450; 70486; 71045; 80048; 80053; 80069; 80202; 81001; 82962; 83735; 83880; 84484; 85025; 87040; 87086; 87426; 92610; 93005; 96361; 96365; 96366; 97110; 97116; 97163; 97530; G0378; J0696; J2405